=== PATIENT | male | born 1955 | race American Indian/Alaskan Native ===

== ENCOUNTER → 2018-12-25 15:19 | Outpatient (CLI) | payer MEDICARE, MEDICAID, OTHER, SELFPAY ==
--- NOTE | 2018-12-25 | DI.RAD.S_ITS ---
PROCEDURE: XR HIP W PEL IF DONE RT 2V INDICATIONS: PAIN IN RIGHT HIP TECHNIQUE: AP pelvis with lateral view(s) of the right hip(s). COMPARISON: [facility], , XR PELVIS W BILAT LAT HIPS 3VW, 02/14/2017, 14:04. FINDINGS: Bones: No fractures or dislocations. Pelvic ring appears intact. No suspicious bony lesions. There is severe right hip degenerative narrowing with areas of subchondral sclerosis as well as subchondral cyst formation. This has been prominently progressive compared to prior exam. There is mild to moderate left hip degenerative narrowing remaining stable. Soft tissues: The visualized bowel gas pattern is normal. No suspicious soft tissue calcifications. IMPRESSION: Significant interval progression of right hip degenerative change consistent with osteoarthritis. Dictated by: Valerie Lawrence M.D. on 12/25/2018 at 17:31 Approved by: Valerie Lawrence M.D. on 12/25/2018 at 17:32
--- NOTE | 2018-12-25 | DI.RAD.S_ITS ---
PROCEDURE: XR LUMBAR SPINE 2-3V INDICATIONS: PAIN IN L-SPINE TECHNIQUE: 3 views of the lumbar spine were acquired. COMPARISON: [facility], MRI lumbar spine, 04/04/2017. [facility] X-ray lumber spine, 01/08/2017. FINDINGS: Bones: 5 [id number] vertebrae are present. There is grade 1 retrolisthesis is of L5 on S1. No vertebral body compression fractures. No suspicious bony lesions. There is degenerative disc disease, moderate at L3-L4 and L5-L5, mild at L1-L2 and L2-L3. There is moderate facet arthropathy at L4-L5 and L5-S1. Soft tissues: Overlying bowel gas pattern is normal. No suspicious soft tissue calcifications. IMPRESSION: Degenerative disc and facet disease in lumbar spine as described. Dictated by: Jazzy Hammond M.D. on 12/25/2018 at 17:37 Approved by: Jazzy Hammond M.D. on 12/25/2018 at 17:39
== END ==
PROVIDERS: Visit Provider Family Medicine
DX: M54.5 Low back pain (principal); M25.551 Pain in right hip; M16.0 Bilateral primary osteoarthritis of hip; M51.36 Other intervertebral disc degeneration, lumbar region; M47.816 Spondylosis without myelopathy or radiculopathy, lumbar region; M47.817 Spondylosis without myelopathy or radiculopathy, lumbosacral region
CPT/HCPCS: 72100; 73502

== ENCOUNTER 2019-09-02 17:10 | Emergency (ER) | payer MEDICARE, MEDICAID, OTHER, SELFPAY ==
[2019-09-02 17:14] VITALS: BP 134/104; PULSE 116; RESP 20; TEMP 36.6; O2SAT 100
--- NOTE | 2019-09-02 17:33 | ED_ITS ---
HPI - Male Genitourinary General Chief complaint: Urogenital-Male Stated complaint: blood in urine Time Seen by Provider: 09/02/19 17:24 Source: patient Mode of arrival: other Limitations: no limitations History of Present Illness HPI Narrative: 63-year-old male with known prostate issues here for evaluation of hematuria. He states that he noticed it last evening and some this morning but that is improved today going on. He does state that he feels like he is having to urinate more often. He does feel like he is emptying his bladder. No fevers. Related Data Previous Rx's Medication Instructions Recorded cephalexin [Keflex] 500 mg PO BID 5 Days #10 cap 09/02/19 Allergies Allergy/AdvReac Type Severity Reaction Status Date / Time naproxen [NAPROXEN] Allergy Unknown Verified 09/02/19 17:20 Review of Systems Constitutional Constitutional: Denies fever(s) ENT Ears, Nose, Mouth, and Throat: Denies vertigo Cardiovascular Cardiovascular: Denies chest pain and Denies dyspnea Respiratory Respiratory: Denies dyspnea Gastrointestinal Gastrointestinal: Denies abdominal pain, Denies nausea and Denies vomiting Genitourinary Genitourinary: Reports hematuria and Reports dysuria Musculoskeletal Musculoskeletal: Denies myalgias and Denies arthralgias Integumentary/Breasts Skin/Breast: Denies lesions and Denies rash Neurologic Neurologic: Denies vertigo Hematologic/Lymphatic Hematologic/Lymphatic: Denies easy bleeding and Denies easy bruising Patient History Medical History Sciatica (Inactive) Varicose veins of both lower extremities (Inactive) Social History Smoking Status: Current some day smoker Substance Use Type: does not use Exam Initial Vital Signs Initial Vital Signs: Vital Signs Temperature 97.8 F 09/02/19 17:14 Pulse Rate 116 H 09/02/19 17:14 Respiratory Rate 20 09/02/19 17:14 Blood Pressure 134/104 H 09/02/19 17:14 Pulse Oximetry 100 09/02/19 17:14 Const General: cooperative and comfortable Orientation: alert, awake and oriented x3 HENMT Head: normal to inspection and normocephalic Cardio Rate: tachycardic Rhythm: regular rhythm Skin Lesions: no lesions Rashes: no rashes Neuro General: alert and awake Cognition: normal cognition Speech: speech normal Gait: normal gait Extrem General: normal to inspection and capillary refill normal Psych Appearance: grossly normal and well kempt Course Orders Ordered: ED Orders 09/02/19 17:15 Urine Culture Stat Urine Microscopic Stat Vital Signs Vital signs: Vital Signs - 8 hr 09/02/19 17:14 Temperature 97.8 F Pulse Rate 116 H Respiratory Rate 20 Blood Pressure 134/104 H Pulse Oximetry 100 MDM - Male Genitourinary Lab Data Attestation: I reviewed the patient's lab results. Labs: Lab Results 09/02/19 Range/Units 17:15 Urine RBC 5-10/hpf H (0-5/HPF) Urine WBC 10-30/hpf H (0-5/HPF) Ur Squamous Epith Cells 1-5 /hpf (0-5/HPF) Ur Transition Epith Cell 1-5/hpf (0-5/HPF) Urine Bacteria Many (>30) H (None) Urine Mucus 3+ H (Negative) Ur Culture Indicated? Specimen cultured Urine Dip Bedside Urine Glucose Negative Bedside Urine Bilirubin - Negative Bedside Urine Ketone - Negative Urine Specific [place] 1.015 Bedside Urine Occult Blood ++ Bedside Urine pH 6.0 Bedside Urine Protein +/- 15 Bedside Urine Urobilinogen - Negative Bedside Urine Nitrite - Negative Bedside Urine Leukocytes +++ 500 Esterase MDM Narrative Medical decision making narrative: Patient with hematuria. His exam is not consistent with a kidney stone. He is having dysuria and he does have white blood cells and bacteria. Will treat him for a urinary tract infection. He seems to be improving his symptoms. Informed her that she should contact his primary doctor discuss referral to see Urology. He expressed understanding and agreement plan. Discharge Plan Departure Patient Disposition: Home Clinical Impression: Urinary tract infection Qualifiers: Urinary tract infection type: site unspecified Hematuria presence: with hematuria Qualified Code(s): N39.0 - Urinary tract infection, site not specified Hematuria Qualifiers: Hematuria type: gross Qualified Code(s): R31.0 - Gross hematuria Instructions: DI for Urinary Tract Infection (UTI), DI for Hematuria Activity Restrictions/Additional Instructions: Take the antibiotics as directed. Talk with your primary provider about a referral to see Urology. Return to the emergency department for any new or worsening symptoms Prescriptions: New cephalexin [Keflex] 500 mg capsule 500 mg PO BID 5 Days Qty: 10 RF: 0
[2019-09-02 17:49] LABS: Bacteria Urine Many (>30); Culture Indicated Urine Specimen Cultured; Mucus Urine 3+ (Negative); RBC Urine 5-10/HPF (0-5/HPF); Squamous Epithelial Cell Urine 1-5 /HPF (0-5/HPF); Transitional Epi Cells Urine 1-5/HPF (0-5/HPF); WBC Urine 10-30/HPF (0-5/HPF)
[2019-09-02 18:31] VITALS: PULSE 94; RESP 22; TEMP 36.7; O2SAT 98
== END 2019-09-02 18:31 | disposition home or self-care (01) ==
PROVIDERS: Emergency Provider Emergency Medicine
DX: N39.0 Urinary tract infection, site not specified (principal); R31.0 Gross hematuria
CPT/HCPCS: 81003; 81015; 87086; 99282; 99283

== ENCOUNTER 2019-11-03 13:58 | Emergency (ER) | payer MEDICARE, MEDICAID, OTHER, SELFPAY ==
[2019-11-03 14:32] VITALS: BP 127/82; PULSE 97; RESP 16; TEMP 36.7; O2SAT 99; BMI 22.6
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
--- NOTE | 2019-11-03 14:53 | PC.NURSE ---
limited ROM of thumb pain with any movement. Cap refill <2 CMS intact. Pt report TDAP up to date
[2019-11-03] MEDS: TET,DIPH,PERTUSS(ACELL),VAC/PF 0.5 ML SYRINGE IM (17:15)
[2019-11-03] MEDS: LIDO 1%/SOD BICARB 8.4% (10ML) 10 ML SYRINGE INJ (17:16)
[2019-11-03] MEDS: BACITRACIN OINT 0.9 GM PCKT 1 APPLIC TOP (18:23)
--- NOTE | 2019-11-03 18:29 | PC.NURSE ---
4 sutures placed by Garry ANAYA.
[2019-11-03 18:30] VITALS: BP 118/72; PULSE 78; RESP 16; O2SAT 99
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
== END 2019-11-03 18:31 | disposition home or self-care (01) ==
PROVIDERS: Emergency Provider Nurse Practitioner Family
DX: S61.412A Laceration without foreign body of left hand, initial encounter (principal); W45.8XXA Other foreign body or object entering through skin, initial encounter; Z23 Encounter for immunization
CPT/HCPCS: 12001; 73130; 90471; 99283; 99284; 90715

== ENCOUNTER 2020-05-05 10:27 | Emergency (ER) | payer OTHER, MEDICAID, SELFPAY ==
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
[2020-05-05 10:39] VITALS: BP 144/81; PULSE 95; RESP 18; TEMP 36.4; O2SAT 99; BMI 19.7
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
[2020-05-05] MEDS: HYDROCODONE/ACET 5/325 TABLET 1 TAB PO (12:29)
[2020-05-05 12:30] VITALS: BP 145/89; PULSE 90; O2SAT 100
--- NOTE | 2020-05-05 13:03 | PC.NURSE ---
pt refused the sling
== END 2020-05-05 13:05 | disposition home or self-care (01) ==
PROVIDERS: Emergency Provider Nurse Practitioner Family; PCP Family Medicine
DX: M25.532 Pain in left wrist (principal); V18.2XXA Unspecified pedal cyclist injured in noncollision transport accident in nontraffic accident, initial encounter
CPT/HCPCS: 29125; 73110; 99283; 99284

== ENCOUNTER 2020-11-17 18:11 | Inpatient (IN) | payer OTHER, MEDICAID, SELFPAY ==
--- NOTE | 2020-11-17 18:14 | ED.SKABFB ---
HPI - Skin/Abscess/Foreign Bdy General Chief complaint: Wound/Laceration Stated complaint: swollen legs and feet, scabs and lessions Time Seen by Provider: 11/17/20 18:13 Source: patient Mode of arrival: Wheelchair Limitations: no limitations History of Present Illness HPI narrative: 65M smoker without chronic medical problems presents with the chief complaint of worsening pain, redness, and scabbing lesions of both lower extremities over the past 2-3 weeks. He denies history of the same. He denies fever, chills, N/V. He denies injury, breaks in the skin, or history of prior skin infection. He denies the use of IV drugs. His pain is worse with motion and walking, and improves with rest. He denies dizziness, weakness, lightheadedness, exposure to COVID. MD complaint: rash and abscess/boil Onset (ago): week(s) Location: LLE and RLE Severity: severe Quality: burning, aching and constant Pain Consistency: constant Relieving factors: rest Exacerbating factors: palpation and movement Context: none Associated symptoms: denies other symptoms Treatments prior to arrival: none Related Data Previous Rx's Medication Instructions Recorded hydrocodone-acetaminophen [[place]] 1 tab PO Q4-6H PRN #7 tab 05/05/20 Allergies Allergy/AdvReac Type Severity Reaction Status Date / Time naproxen [NAPROXEN] Allergy Unknown Verified 11/17/20 18:49 Review of Systems Constitutional Constitutional: Denies chills, Denies fatigue, Denies fever(s), Denies frequent falls, Denies lethargy and Denies weakness Eyes Eyes: Denies change in vision, Denies eye discharge, Denies irritation and Denies loss of vision ENT Ears, Nose, Mouth, and Throat: Denies change in voice, Denies dizziness, Denies neck pain, Denies sore throat and Denies throat swelling Cardiovascular Cardiovascular: Denies chest pain, Denies irregular heart rhythm, Denies lightheadedness, Denies palpitations, Denies dyspnea, Denies dyspnea on exertion and Denies orthopnea Respiratory Respiratory: Denies cough, Denies dyspnea, Denies dyspnea on exertion and Denies wheezing Gastrointestinal Gastrointestinal: Denies abdominal pain, Denies change in bowel habits, Denies diarrhea, Denies nausea and Denies vomiting Musculoskeletal Musculoskeletal: Denies neck pain and Denies numbness Integumentary/Breasts Skin/Breast: Denies pruritus, Reports erythema, Denies rash, Reports skin pain, Reports skin swelling and Reports wounds Neurologic Neurologic: Denies behavioral changes, Denies confusion, Denies dizziness, Denies frequent falls, Denies loss of vision, Denies numbness and Denies weakness Psychiatric Psychiatric: Denies anxiety, Denies behavioral changes, Denies confusion, Denies depression, Denies homicidal ideation and Denies suicidal ideation Endocrine Endocrine: Denies fatigue, Denies flushing and Denies palpitations Hematologic/Lymphatic Hematologic/Lymphatic: Denies easy bruising Allergic/Immunologic Allergic/Immunologic: Denies urticaria, Denies throat swelling and Denies wheezing Patient History Medical History Sciatica Varicose veins of both lower extremities Surgical History H/O neck surgery History of prostate surgery Social History household members: none Smoking Status: Current some day smoker alcohol intake: current Smoking Status: Current some day smoker alcohol intake frequency: 0-2 drinks per day Substance Use Type: does not use Exam Narrative Exam Narrative: GENERAL: [65] year old patient appears stated age. Well-nourished, well-developed patient, in mild distress. HEAD: Atraumatic. Normocephalic. EYES: Pupils equal round and reactive. Extraocular motions intact. No scleral icterus. No injection or drainage. ENT: Nose without bleeding, purulent drainage. Throat without erythema, tonsillar hypertrophy or exudate. Airway patent. NECK: Trachea midline. Non tender CARDIOVASCULAR: Regular rate and rhythm without murmurs, gallops, or rubs. RESPIRATORY: Clear to auscultation. Breath sounds equal bilaterally. No wheezes, rales, or rhonchi. GASTROINTESTINAL: Abdomen soft, non-tender, nondistended. EXTREMITIES: No edema or joint tenderness. BACK: Nontender without deformity or crepitance. No flank tenderness. NEURO: AOx3. SKIN: Multiple scabbing, crusting lesions with significant pain, erythema and swelling bilaterally from the knees down with some involvement proximal to the knee. There is no crepitance. Sensation is intact, cap refill less than 2 seconds. Wound culture obtained Initial Vital Signs Initial Vital Signs: Vital Signs Temperature 98.8 F 11/17/20 18:35 Pulse Rate 98 H 11/17/20 18:35 Respiratory Rate 28 H 11/17/20 18:35 Blood Pressure 137/93 H 11/17/20 18:35 Pulse Oximetry 96 11/17/20 18:35 Course Course Course Narrative: LRINEC Score for Necrotizing Soft Tissue Infection from [employer] on 11/17/2020 All calculations should be rechecked by clinician prior to use RESULT SUMMARY: 3 points If high suspicion for necrotizing fasciitis through clinical history and physical exam, do not calculate a LRINEC score and go straight to operative debridement. Consider IV antibiotics and serial labs to monitor response to treatment. Scores <6 were low risk ? but not no risk ? for necrotizing soft tissue infections. INPUTS: C-reactive protein ?> 0 = <15 mg/dL (150 mg/L) White blood cell count (x10,000/?L) ?> 0 = <15 Hemoglobin (g/dL) ?> 1 = 11-13.5 Sodium (mEq/L) ?> 2 = <135 Creatinine ?> 0 = ?1.6 mg/dL (141 ?mol/L) Glucose ?> 0 = ?180 mg/dL (10 mmol/L) Orders Ordered: ED Orders 11/17/20 18:40 COVID19 Stat Wound Culture and Gram Stain Stat 11/17/20 18:44 Complete Blood Count AUTO DIFF Stat Erythrocyte Sedimentation Rate Stat 11/17/20 18:50 C-Reactive Protein Quant Stat Lactate (Lactic Acid) Stat Procalcitonin Stat 11/17/20 19:14 Blood Culture Stat Comprehensive Metabolic Panel Stat 11/17/20 19:51 CT LE LT w con Stat Acetaminophen (Acetaminophen 325 Mg Tablet) 650 mg PO Q4HR PRN PRN Reason: Fever/Mild Pain (1-3) Al Hydrox/Mg Hydrox/Simethicone (Mag Hydrox/Alum/Simeth 30 Ml Udc) 30 ml PO Q6HR PRN PRN Reason: Dyspepsia Bisacodyl (Bisacodyl 10 Mg Supp) 10 mg AL DAILY PRN PRN Reason: Constipation Calcium Carbonate (Calcium Carbonate 500 Mg Tab) 1,000 mg PO Q4HR PRN PRN Reason: Dyspepsia Docusate Sodium (Docusate 100 Mg Capsule) 100 mg PO BID PRN PRN Reason: Constipation Enoxaparin Sodium (Enoxaparin 40 Mg/0.4 Ml Syringe) 40 mg SUBCUT DAILY KAMRYN Hydromorphone HCl (Hydromorphone 0.5 Mg Inj) 0.5 mg IV Q4H PRN PRN Reason: Pain, Moderate (4-6) Hydromorphone HCl (Hydromorphone 1 Mg Inj) 1 mg IV Q4H PRN PRN Reason: Pain, Moderate (4-6) Lactated Ringer's (Lactated Ringers) 1,000 mls @ 75 mls/hr IV CONT KAMRYN Piperacillin/Tazobactam/Dextrose (Zosyn) 3.375 gm in 50 mls @ 100 mls/hr IV Q6H KAMRYN Vancomycin HCl/Dextrose (Vancomycin) 750 mg in 150 mls @ 150 mls/hr IV Q12H KAMRYN Influenza Virus Vaccine (Influenza Hd Vaccine 0.7 Ml Syringe) 0.7 ml IM .ONCE ONE Stop: 11/18/20 09:01 Naloxone HCl (Naloxone 0.4 Mg/Ml Vial) 0.2 mg IV Q2MIN PRN PRN Reason: Opiate Reversal Ondansetron HCl (Ondansetron 4 Mg/2 Ml Inj) 4 mg IV Q8HR PRN PRN Reason: Nausea And Vomiting Vancomycin HCl (Vancomycin Per Pharmacy) 1 request MISC NOW ONE Stop: 11/17/20 22:53 Discontinued Medications Hydromorphone HCl (Hydromorphone 0.5 Mg Inj) 0.5 mg IV NOW ONE Stop: 11/17/20 19:23 Last Admin: 11/17/20 19:24 Dose: 0.5 mg Documented by: PIERRE Lactated Ringer's (Lactated Ringers) 1,000 mls @ 1,000 mls/hr IV BOLUS ONE Stop: 11/17/20 19:42 Last Infusion: 11/17/20 22:27 Dose: 0 mls/hr Documented by: Admin: 11/17/20 19:19 Dose: 1,000 mls/hr Documented by: PIERRE Vancomycin HCl/Dextrose (Vancomycin) 1,500 mg in 300 mls @ 200 mls/hr IV NOW ONE Stop: 11/17/20 20:12 Last Infusion: 11/17/20 22:27 Dose: 0 mls/hr Documented by: Admin: 11/17/20 21:18 Dose: 200 mls/hr Documented by: PIERRE Piperacillin/Tazobactam/Dextrose (Zosyn) 3.375 gm in 50 mls @ 100 mls/hr IV NOW ONE Stop: 11/17/20 19:17 Last Infusion: 11/17/20 20:18 Dose: 0 mls/hr Documented by: Admin: 11/17/20 19:19 Dose: 100 mls/hr Documented by: PIERRE Clindamycin Phosphate (Cleocin) 900 mg in 50 mls @ 50 mls/hr IV NOW ONE Stop: 11/17/20 19:47 Last Infusion: 11/17/20 21:10 Dose: 0 mls/hr Documented by: Admin: 11/17/20 19:47 Dose: 50 mls/hr Documented by: JIMMY Vancomycin HCl (Vancomycin) 1,000 mg in 200 mls @ 200 mls/hr IV Q12H [facility] Vancomycin HCl (Vancomycin) 1,000 mg in 200 mls @ 200 mls/hr IV Q12H [facility] Consultations Consultation #1: Dr. Dangelo has seen and evaluated patient at the bedside. No current surgical needs. Vital Signs Vital signs: Vital Signs - 8 hr 11/17/20 18:35 11/17/20 21:10 11/17/20 21:30 Temperature 98.8 F Pulse Rate 98 H 107 H 109 H Respiratory Rate 28 H Blood Pressure 137/93 H 113/68 114/71 Pulse Oximetry 96 100 100 11/17/20 22:00 Temperature Pulse Rate 102 H Respiratory Rate Blood Pressure 125/73 Pulse Oximetry 100 MDM - Skin/Abscess/Foreign Bdy Lab Data Result diagrams: 11/17/20 18:44 11/17/20 19:14 Labs: Lab Results 11/17/20 11/17/20 11/17/20 Range/Units 18:40 18:44 18:50 WBC 13.4 H (4.5-11.0) X10^3/uL RBC 4.39 L (4.5-5.9) X10^6/uL Hgb 12.5 L (13.5-17.5) g/dL Hct 37.6 L (41-53) % MCV 85.6 (80-100) fL MCH 28.4 (26-34) PG MCHC 33.2 (30-36) % RDW 14.2 (11.6-14.8) % Plt Count 573 H (150-400) X10^3/uL Neut % (Auto) 82.1 H (50-75) % Lymph % (Auto) 8.8 L (25-40) % [place] % (Auto) 6.7 (3-14) % Eos % (Auto) 1.8 L (2-4) % Baso % (Auto) 0.6 (0-2) % Neut # (Auto) 69185 H (4359-5259) /uL Lymph # (Auto) 1200 (2150-6704) /uL [place] # (Auto) 900 (0-900) /uL Eos # (Auto) 200 (0-450) /uL Baso # (Auto) 100 (0-100) /uL ESR 82 H (0-15) MM/HR Sodium (137-145) mmol/L Potassium (3.4-5.1) mmol/L Chloride (98-107) mmol/L Carbon Dioxide (22-32) mmol/L BUN (9-20) mg/dL Creatinine (0.66-1.25) mg/dL Estimated GFR (>60) mL/min BUN/Creatinine Ratio (6-22) Glucose (80-110) mg/dL Lactate (0.7-2.1) mmol/L Calcium (8.4-10.2) mg/dL Total Bilirubin (0.2-1.3) mg/dL AST (17-59) IU/L ALT (<50) IU/L Alkaline Phosphatase (38-126) U/L C-Reactive Protein (<1.0) mg/dL Total Protein (6.3-8.2) g/dL Albumin (3.5-5.0) g/dL Globulin (1.7-4.1) g/dL Albumin/Globulin Ratio (1.0-2.8) Procalcitonin < 0.05 (<0.5) ng/mL SARS-CoV-2 (PCR) Negative (Negative) 11/17/20 11/17/20 11/17/20 Range/Units 18:50 18:50 19:14 WBC (4.5-11.0) X10^3/uL RBC (4.5-5.9) X10^6/uL Hgb (13.5-17.5) g/dL Hct (41-53) % MCV (80-100) fL MCH (26-34) PG MCHC (30-36) % RDW (11.6-14.8) % Plt Count (150-400) X10^3/uL Neut % (Auto) (50-75) % Lymph % (Auto) (25-40) % [place] % (Auto) (3-14) % Eos % (Auto) (2-4) % Baso % (Auto) (0-2) % Neut # (Auto) (1920-6321) /uL Lymph # (Auto) (3452-2196) /uL [place] # (Auto) (0-900) /uL Eos # (Auto) (0-450) /uL Baso # (Auto) (0-100) /uL ESR (0-15) MM/HR Sodium 131 L (137-145) mmol/L Potassium 4.1 (3.4-5.1) mmol/L Chloride 99 (98-107) mmol/L Carbon Dioxide 24 (22-32) mmol/L BUN 18 (9-20) mg/dL Creatinine 0.98 (0.66-1.25) mg/dL Estimated GFR > 60.0 (>60) mL/min BUN/Creatinine Ratio 18.4 (6-22) Glucose 119 H (80-110) mg/dL Lactate 1.4 (0.7-2.1) mmol/L Calcium 8.6 (8.4-10.2) mg/dL Total Bilirubin 0.5 (0.2-1.3) mg/dL AST 69 H (17-59) IU/L ALT 34 (<50) IU/L Alkaline Phosphatase 182 H (38-126) U/L C-Reactive Protein 8.1 H (<1.0) mg/dL Total Protein 8.6 H (6.3-8.2) g/dL Albumin 3.8 (3.5-5.0) g/dL Globulin 4.8 H (1.7-4.1) g/dL Albumin/Globulin Ratio 0.8 L (1.0-2.8) Procalcitonin (<0.5) ng/mL SARS-CoV-2 (PCR) (Negative) Imaging Data CT LE w/contrast: Radiologist's Impression: [address] [id number] Scan ReportSigned Patient: Lenin BautistaMR#: [id number]: [id number]:[id number]/Sex: 65 / MDate of Service: 11/17/20Loc: EDAccession Number: [id number] Procedure: CT LE LT w con Ordering Provider: Igor Flores D.O. PROCEDURE: CT LE RT AND LT W CON INDICATIONS: severe infection, question abscess or fascial involvement TECHNIQUE: After the administration of intravenous contrast, 3 mm axial sections acquired of the right and left lower extremities , with coronal and sagittal reformats. COMPARISON: None. FINDINGS: Image quality: Excellent. Bones: No fracture or dislocation. No osseous erosive changes. No periosteal reaction. Soft tissues: Extensive, confluent edema noted in the subcutaneous fat of the calves, ankles and feet compatible with nonspecific cellulitis. Edema noted in the deep fascial planes of the calves bilaterally compatible with nonspecific fasciitis. No soft tissue gas identified to suggest CT evidence of necrotizing fasciitis. No abscess. There is normal contrast opacification of the major arteries and veins of the lower legs. Venous varices noted in the medial aspect of the left calf. IMPRESSION: 1. Extensive nonspecific cellulitis involving the right and left lower extremities. 2. Extensive nonspecific fasciitis involving the right and left lower extremities. No CT evidence of necrotizing fasciitis. 3. No abscess. 4. No CT evidence of osteomyelitis. Please note CT imaging can be incentive to osteomyelitis initial 15 days is disease. If there is clinical concern for osteomyelitis, three-phase nuclear medicine scan should be considered for further evaluation. 5. Arterial and venous structures patent. Dictated by: Clarita Bright MD, PhD on 11/17/2020 at 21:14 Approved by: Clarita Bright MD, PhD on 11/17/2020 at 21:21 Discharge Plan Departure Admit Date/Time: 11/17/20 22:33 Admit Provider: Singh Frias
[2020-11-17 18:35] VITALS: BP 137/93; PULSE 98; RESP 28; TEMP 37.1; O2SAT 96; BMI 22.2
--- NOTE | 2020-11-17 18:58 | PC.NURSE ---
Pt has multiple wound on lower legs in different stages of healing. Pt has some draining and some scabs with redness. Pts feet swollen and shiny,painful with ambulation. Pt denies SOB
[2020-11-17 19:14] LABS: Add Manual Diff / Slide Review NO; Basophils Absolute Auto 100 /uL (0-100); Basophils Percent Auto 0.6 % (0-2); Eosinophils Absolute Auto 200 /uL (0-450); Eosinophils Percent Auto 1.8 % (2-4); Hematocrit 37.6 % (41-53); Hemoglobin 12.5 g/dL (13.5-17.5); Lymphocytes Absolute Auto 1200 /uL (1100-4500); Lymphocytes Percent Auto 8.8 % (25-40); Mean Corpuscular HGB Conc 33.2 % (30-36); Mean Corpuscular Hemoglobin 28.4 PG (26-34); Mean Corpuscular Volume 85.6 fL (80-100); Monocytes Absolute Auto 900 /uL (0-900); Monocytes Percent Auto 6.7 % (3-14); Neutrophils Absolute Auto 11000 /uL (1500-7000); Neutrophils Percent Auto 82.1 % (50-75); Platelet Count 573 X10^3/uL (150-400); Red Blood Cell Count 4.39 X10^6/uL (4.5-5.9); Red Cell Distribution Width 14.2 % (11.6-14.8); White Blood Cell Count 13.4 X10^3/uL (4.5-11.0)
[2020-11-17] MEDS: PIPERACILLIN-TAZO 3.375 GM/50 ML FROZ.PIGGY IV (19:19)
[2020-11-17] MEDS: LACTATED RINGERS 1,000 ML 1000 ML IV (19:19)
[2020-11-17] MEDS: HYDROMORPHONE 0.5 MG INJ IV (19:24)
[2020-11-17 19:28] LABS: COVID19 -Nasal RAPID Negative (Negative)
[2020-11-17 19:29] LABS: C-Reactive Protein Quant 8.1 mg/dL (<1.0)
[2020-11-17 19:37] LABS: Erythrocyte Sedimentation Rate 82 MM/HR (0-15)
[2020-11-17 19:37] LABS: Lactate (Lactic Acid) 1.4 mmol/L (0.7-2.1)
[2020-11-17] MEDS: CLINDAMYCIN 900 MG/50 ML PIGGYBACK 50 MG IV (19:47)
[2020-11-17 19:51] LABS: Procalcitonin < 0.05 ng/mL (<0.5)
--- NOTE | 2020-11-17 19:51 | DI.CT.S_ITS ---
PROCEDURE: CT LE RT AND LT W CON INDICATIONS: severe infection, question abscess or fascial involvement TECHNIQUE: After the administration of intravenous contrast, 3 mm axial sections acquired of the right and left lower extremities , with coronal and sagittal reformats. COMPARISON: None. FINDINGS: Image quality: Excellent. Bones: No fracture or dislocation. No osseous erosive changes. No periosteal reaction. Soft tissues: Extensive, confluent edema noted in the subcutaneous fat of the calves, ankles and feet compatible with nonspecific cellulitis. Edema noted in the deep fascial planes of the calves bilaterally compatible with nonspecific fasciitis. No soft tissue gas identified to suggest CT evidence of necrotizing fasciitis. No abscess. There is normal contrast opacification of the major arteries and veins of the lower legs. Venous varices noted in the medial aspect of the left calf. IMPRESSION: 1. Extensive nonspecific cellulitis involving the right and left lower extremities. 2. Extensive nonspecific fasciitis involving the right and left lower extremities. No CT evidence of necrotizing fasciitis. 3. No abscess. 4. No CT evidence of osteomyelitis. Please note CT imaging can be incentive to osteomyelitis initial 15 days is disease. If there is clinical concern for osteomyelitis, three-phase nuclear medicine scan should be considered for further evaluation. 5. Arterial and venous structures patent. Dictated by: Clarita Bright MD, PhD on 11/17/2020 at 21:14 Approved by: Clarita Bright MD, PhD on 11/17/2020 at 21:21
[2020-11-17 19:59] LABS: Alanine Aminotransferase 34 IU/L (<50); Albumin 3.8 g/dL (3.5-5.0); Albumin Globulin Ratio 0.8 (1.0-2.8); Alkaline Phosphatase 182 U/L (38-126); Aspartate Aminotransferase 69 IU/L (17-59); BUN Creatinine Ratio 18.4 (6-22); Bilirubin Total 0.5 mg/dL (0.2-1.3); Blood Urea Nitrogen 18 mg/dL (9-20); Calcium 8.6 mg/dL (8.4-10.2); Carbon Dioxide 24 mmol/L (22-32); Chloride 99 mmol/L (98-107); Estimated Glomerular Filt Rate > 60.0 mL/min (>60); Globulin 4.8 g/dL (1.7-4.1); Glucose 119 mg/dL (80-110); HEMOLYSIS 33 (0-50); Potassium 4.1 mmol/L (3.4-5.1); Sodium 131 mmol/L (137-145); Total Protein 8.6 g/dL (6.3-8.2)
[2020-11-17 21:10] VITALS: BP 113/68; PULSE 107; O2SAT 100
[2020-11-17] MEDS: VANCOMYCIN 1,500 MG/300 ML PIGGYBACK 200 MG IV (21:18)
[2020-11-17 21:30] VITALS: BP 114/71; PULSE 109; O2SAT 100
[2020-11-17 22:00] VITALS: BP 125/73; PULSE 102; O2SAT 100
--- NOTE | 2020-11-17 22:25 | PM.CN ---
History of Present Illness Consult details Date Patient Seen: 11/17/20 Time Patient Seen: 22:25 Chief complaint: swollen legs and feet, scabs and lessions Narrative: 65-year-old man seen in the emergency room and evaluation for bilateral lower extremity cellulitis. He is a difficult historian. He developed nonspecific skin lesions on his lower extremity approximately 3 weeks ago. His condition worsened as he developed increased bilateral lower extremity pain and swelling from feet to the knees bilaterally. No previous similar episodes, denies trauma. History of venous stasis disease, no known diabetes, mycoardial infarcation, lower extremity ischemia, he is ambulatory. He is a tobacco user. At arrival afebrile, hemodynamically normal, WBC 13, neutrophils 82%, sodium 131, lactate 1.4, procalcitonin l< 0.05. CT LE demonstrates cellulitis and non specific fascitis no subcutaneous air is present. Started on Clindamycin, Zosyn and Vancomycin on arrival for coverage of possible necrotizing fascitis. Meds Home Medications and Allergies Home Medications Medication Instructions Recorded Confirmed Type hydrocodone-acetaminophen [[place]] 1 tab PO Q4-6H PRN #7 tab 05/05/20 11/17/20 Rx Allergies Allergy/AdvReac Type Severity Reaction Status Date / Time naproxen [NAPROXEN] Allergy Unknown Verified 11/17/20 18:49 Review of Systems Review of Systems ROS: Yes All systems reviewed with the patient and are negative except as otherwise documented Exam Vital Signs (past 8 hours): - 11/17/20 18:35 11/17/20 21:10 11/17/20 21:30 Temperature 98.8 F Pulse Rate 98 H 107 H 109 H Respiratory Rate 28 H Blood Pressure 137/93 H 113/68 114/71 Pulse Oximetry 96 100 100 11/17/20 22:00 Temperature Pulse Rate 102 H Respiratory Rate Blood Pressure 125/73 Pulse Oximetry 100 Oxygen Delivery Method Room Air Narrative Exam Narrative: General-no acute distress, thin adult male HEENT-moist mucous membranes, no scleral icterus Neck-supple, no lymphadenopathy Chest- non labored respirations, no audible wheezes Cardiac-regular rate, pitting edema Abdomen-soft, nontender, non distended Extremities-bilateral lower extremities with erythema and warmth, pitting edema from the knees to feet, normal capillary refill but unable to palpate distal pulses secondary to edema. Multiple open skin lesions in various stages. No crepitus. Appropriately tender to palpation. Neurological-alert and oriented, no focal deficits Objective Labs Result Diagrams: 11/17/20 18:44 11/17/20 19:14 Labs: Laboratory Results - last 24 hr 11/17/20 11/17/20 11/17/20 18:40 18:44 18:50 WBC 13.4 H RBC 4.39 L Hgb 12.5 L Hct 37.6 L MCV 85.6 MCH 28.4 MCHC 33.2 RDW 14.2 Plt Count 573 H Neut % (Auto) 82.1 H Lymph % (Auto) 8.8 L [place] % (Auto) 6.7 Eos % (Auto) 1.8 L Baso % (Auto) 0.6 Neut # (Auto) 93239 H Lymph # (Auto) 1200 [place] # (Auto) 900 Eos # (Auto) 200 Baso # (Auto) 100 ESR 82 H Sodium Potassium Chloride Carbon Dioxide BUN Creatinine Estimated GFR BUN/Creatinine Ratio Glucose Lactate Calcium Total Bilirubin AST ALT Alkaline Phosphatase C-Reactive Protein Total Protein Albumin Globulin Albumin/Globulin Ratio Procalcitonin < 0.05 SARS-CoV-2 (PCR) Negative 11/17/20 11/17/20 11/17/20 18:50 18:50 19:14 WBC RBC Hgb Hct MCV MCH MCHC RDW Plt Count Neut % (Auto) Lymph % (Auto) [place] % (Auto) Eos % (Auto) Baso % (Auto) Neut # (Auto) Lymph # (Auto) [place] # (Auto) Eos # (Auto) Baso # (Auto) ESR Sodium 131 L Potassium 4.1 Chloride 99 Carbon Dioxide 24 BUN 18 Creatinine 0.98 Estimated GFR > 60.0 BUN/Creatinine Ratio 18.4 Glucose 119 H Lactate 1.4 Calcium 8.6 Total Bilirubin 0.5 AST 69 H ALT 34 Alkaline Phosphatase 182 H C-Reactive Protein 8.1 H Total Protein 8.6 H Albumin 3.8 Globulin 4.8 H Albumin/Globulin Ratio 0.8 L Procalcitonin SARS-CoV-2 (PCR) Assessment & Plan Assessment & Plan narrative: 65-year-old man with the venous stasis disease admitted for bilateral lower extremity cellulitis for 3 weeks duration. I reviewed his laboratory and imaging results. His mild leukocytosis of 13 normal lactate mild hyponatremia of 131 CT demonstrates cellulitis and nonspecific fasciitis however there is no evidence of subcutaneous emphysema. I think he has cellulitis and the likelihood of necrotizing fasciitis is extremely low given the several week duration of symptoms and his nontoxic hemodynamically stable presentation. No surgical intervention unless his clinical condition deteriorates. Recommendations -medical admission -IV antibiotic therapy for cellulitis -Elevation and compression of lower extremities for venous stasis -Local wound care measures
[2020-11-17 22:40] VITALS: BP 127/84; PULSE 104; RESP 20; TEMP 37.4; O2SAT 100
[2020-11-17 22:46] VITALS: O2SAT 100
--- NOTE | 2020-11-17 22:58 | P.HP_ITS ---
History of Present Illness History of Present Illness Date Patient Seen: 11/17/20 Time Patient Seen: 23:00 Chief complaint: swollen legs and feet, scabs and lessions Narrative: Mr. Lenin Bautista is a 65-year-old and male who is a current smoker and has a past medical history significant for sciatica, varicose veins and BPH who presents to the ER for bilateral lower extremity swelling and draining wounds for over 2 weeks. The patient is a poor historian and provides conflicting information to providers. The patient reports leg swelling and woun ds for 3 weeks that have been draining pus and are in various stages of healing. He describes developing redness and pain over the last 2 days prompting him to present to the ER. The patient states he has no previous history of leg swelling or skin issues. He has wounds on bilateral lower extremities as well as upper extremities. The patient denies drug use to this provider however he tells the admitting nurse that he uses methamphetamine regularly with last use today prior to arrival. The patient denies complaints of fevers or chills has had no rigors. He denies headaches or dizziness, nasal congestion or sore throat. He denies complaints of chest pain or palpitations. He denies julisa rtness of breath cough or wheezing. He has had no epigastric or abdominal pain no nausea vomiting and denies diarrhea constipation. He does not recall his last bowel movement. He denies urinary frequency urgency or burning. Upon arrival to the ER the patient has a temperature 98.8?, heart rate 98, blood pressure 137/93, respiratory rate of 28, saturation 96% with a pain level of 8/[address] in his legs[address] A CT of bilateral lower extremities obtained finding extensive cellulitis bilateral lower extremities, extensive fasciitis without evidence of necrotizing fasciitis bilateral lower extremities, no abscess, no evidence of osteomyelitis, arterial and venous structures are patent. On laboratory analysis he has an elevated white count at 13.4, hemoglobin of 12.5, hematocrit of 37.6 and platelets of 373. He has a low sodium at 131 a BUN of 18 and creatinine 0.98. His nonfasting glucose is 119. On liver functions has a total bilirubin of 0.5, AST of 69, ALT of 34 and alkaline phosphatase 182. His sed rate is 82 with a CRP of 8.1. Procalcitonin is less than 0.05. COVID screening is negative. Gram stain from the wound finds Gram-positive cocci and Gram-negative rods. General surgery is asked to consult and Dr. Dangelo has evaluated the patient finding no need for surgical intervention. In the ER the patient received lactated Ringer's, Dilaudid 0.5 mg, Zosyn, vancomycin, clindamycin after obtaining wound cultures and blood cultures. The patient is admitted to the medicine service for bilateral lower extremity cellulitis and wound infection. Patient History Medical History (Updated 11/18/20 @ 00:52 by HÉTCOR Cooper) BPH (benign prostatic hyperplasia) Sciatica Varicose veins of both lower extremities Surgical History H/O neck surgery History of prostate surgery Family & Social History Family history unavailable: No (The patient is a poor historian and reports no family medical history.) Safety & Behavioral: Feels Safe in Current Yes Environment Been Physically Hurt or No Threatened By a Person Tobacco & Substance use: Smoking Status Current some day smoker alcohol intake frequency 0-2 drinks per day Substance Use Type does not use Meds Home Medications and Allergies Home Medications Medication Instructions Recorded Confirmed Type hydrocodone-acetaminophen [[place]] 1 tab PO Q4-6H PRN #7 tab 05/05/20 11/17/20 Rx Allergies Allergy/AdvReac Type Severity Reaction Status Date / Time naproxen [NAPROXEN] Allergy Unknown Verified 11/17/20 18:49 Review of Systems Review of Systems ROS: Yes All systems reviewed with the patient and are negative except as otherwise documented Exam Vital Signs (past 8 hours): - 11/17/20 18:35 11/17/20 21:10 11/17/20 21:30 Temperature 98.8 F Pulse Rate 98 H 107 H 109 H Respiratory Rate 28 H Blood Pressure 137/93 H 113/68 114/71 Pulse Oximetry 96 100 100 11/17/20 22:00 11/17/20 22:40 Temperature 99.3 F Pulse Rate 102 H 104 H Respiratory Rate 20 Blood Pressure 125/73 127/84 Pulse Oximetry 100 100 Oxygen Delivery Method Room Air Oxygen Flow Rate 0 Narrative Exam Narrative: GENERAL APPEARANCE: well developed, poorly nourished male who is ill-appearing. HEENT: Normocephalic, PERRLA, conjunctiva clear, EOMs intact without nystagmus, no sinus tenderness to percussion, no rhinorrhea, mucous membranes are pink and dry. NECK/THYROID: neck supple, no JVD,no thyromegaly, trachea midline. LYMPH NODES: no cervical or supraclavicular lymphadenopathy. SKIN: Skin is dry, with poor skin turgor and vanc, skin wounds of multiple sizes ranging from 2 mm to 2 cm in various stages of healing probably bilateral lower extremities but also bilateral upper extremities, cellulitic changes bilateral lower legs HEART: regular rate and rhythm, S1-S2, 1/6 murmur, no rubs or gallops, brisk capillary refill, 3+ edema bilateral feet LUNGS: clear to auscultation bilaterally, no coarseness crackles or wheezing, no cough present CHEST: Symmetrical movement, no accessory muscle use, good tidal volume, no pain on AP or lateral compression. ABDOMEN: Soft, no epigastric or abdominal tenderness, no organomegaly, no flank or suprapubic tenderness, active bowel tones. BACK: Normal curvature, nontender to palpation, no CVA tenderness on percussion EXTREMITIES: moves all extremities, strength is 4/5 and symmetrical, with marked swelling and edema, pain on touch with multiple skin wounds in various stages of healing NEUROLOGIC: AAO x person and place, GCS 14, no lateralized neurologic deficits, cranial nerves II-XII grossly intact, numb fingertips of the right hand. PSYCH: Patient keeps eyes closed, no agitation one-word response to questions, follows directions . Objective Labs Result Diagrams: 11/17/20 18:44 11/17/20 19:14 Labs: Laboratory Results - last 24 hr 11/17/20 11/17/20 11/17/20 18:40 18:44 18:50 WBC 13.4 H RBC 4.39 L Hgb 12.5 L Hct 37.6 L MCV 85.6 MCH 28.4 MCHC 33.2 RDW 14.2 Plt Count 573 H Neut % (Auto) 82.1 H Lymph % (Auto) 8.8 L [place] % (Auto) 6.7 Eos % (Auto) 1.8 L Baso % (Auto) 0.6 Neut # (Auto) 81769 H Lymph # (Auto) 1200 [place] # (Auto) 900 Eos # (Auto) 200 Baso # (Auto) 100 ESR 82 H Sodium Potassium Chloride Carbon Dioxide BUN Creatinine Estimated GFR BUN/Creatinine Ratio Glucose Lactate Calcium Total Bilirubin AST ALT Alkaline Phosphatase C-Reactive Protein Total Protein Albumin Globulin Albumin/Globulin Ratio Procalcitonin < 0.05 SARS-CoV-2 (PCR) Negative 11/17/20 11/17/20 11/17/20 18:50 18:50 19:14 WBC RBC Hgb Hct MCV MCH MCHC RDW Plt Count Neut % (Auto) Lymph % (Auto) [place] % (Auto) Eos % (Auto) Baso % (Auto) Neut # (Auto) Lymph # (Auto) [place] # (Auto) Eos # (Auto) Baso # (Auto) ESR Sodium 131 L Potassium 4.1 Chloride 99 Carbon Dioxide 24 BUN 18 Creatinine 0.98 Estimated GFR > 60.0 BUN/Creatinine Ratio 18.4 Glucose 119 H Lactate 1.4 Calcium 8.6 Total Bilirubin 0.5 AST 69 H ALT 34 Alkaline Phosphatase 182 H C-Reactive Protein 8.1 H Total Protein 8.6 H Albumin 3.8 Globulin 4.8 H Albumin/Globulin Ratio 0.8 L Procalcitonin SARS-CoV-2 (PCR) Assessment & Plan Assessment & Plan narrative: This is a 65-year-old male patient with past medical history of sciatica, varicose veins and BPH who presents to the ER with 3 weeks of lower extremity swelling with extensive draining wounds in various st ages of healing. The patient is not forthcoming in providing history. 1. Bilateral lower extremity cellulitis, acute, present on admission, active -the patient has marked swelling pain and redness bilateral lower legs with multiple wounds in various stages of healing. The patient reports no prior history of venous stasis or venous stasis ulcers and reports that the wounds developed over 3 weeks worsening in the last 2 days. -patient has elevated white count at 13.4 with elevated neutrophils at 11,000. Sed rate is 82, CRP is 8.1, procalcitonin is less than 0.05. Initial Gram stain from wound culture finds Gram-positive cocci and Gram-negative rods. -CT scan finds extensive cellulitis bilateral lower extremities, extensive fasciitis without evidence of necrotizing fasciitis bilateral lower extremities, no abscess no evidence of osteomyelitis. -Dr. Dangelo was consulted and evaluated the patient and found no surgical intervention was indicated and felt infection was not necrotizing fasciitis considering CT and lab results and clinical assessment. -in the ER the patient received clindamycin, Zosyn and vancomycin. Continue Zosyn 3.375 g IV every 6 hours and vancomycin pharmacy to dose. -Gram-positive cocci with presence of murmur concerning for vegetation along with bilateral lower extremity edema prior to development of cellulitis, ordered echocardiogram. -wound care orders include cleaning with normal saline, applying Silvadene covered with Telfa, apply bilateral Yehuda wraps. -will recheck blood count and CRP in the morning. 2. Lower urinary tract infection, acute, present on admission, active -patient has prior history of BPH and has undergone prostate surgery. Patient reports no symptoms. -patient with elevated white count at 13.4 with 11,000 neutrophils. Urinalysis is positive for protein, 1+ blood, 3+ leukocyte esterase, 30-100 wbc's and many bacteria. Urine is sent for culture. -the patient has received multiple antibiotics prior to obtaining the urinalysis. He will be receiving Zosyn 3.375 g every 6 hours and covers most urinary pathogens. 3. Hyponatremia, mild, present on admission, active -sodium on initial labs is 131. His potassium is 4.1. -received a bolus of lactated Ringer's in the emergency department was on lactated Ringer's infusion. Ordered normal saline 100 cc/hour. -will recheck electrolytes in the morning 4. Substance abuse, methamphetamine, active. -patient initially denies drug use however wounds on his arm are suspicious for injection. Patient later endorsed methamphetamine use to admitting RN with last use prior to presentation to the ER. -urinary drug screen is obtained which is positive for amphetamine, methamphetamine. VTE prophylaxis: Enoxaparin IV fluid: Normal saline 100 cc/hour. Diet: Heart healthy Code status: Patient will be made full code and does not designate a surrogate decision maker. The patient is admitted to the hospital due to the extent and severity of his cellulitis and wound infections requiring a complex treatment plan to prevent complications or adverse events. The patient is admitted as an inpatient with expected length of stay to be greater than 2 midnights. COVID-19 COVID-19 status: Negative Result date/Date tested (Pos, Neg/Pending): 11/17/20 Scores GCS [place] coma scale eye opening: Spontaneous Zaida coma scale verbal response: Confused [place] coma scale motor response: Obey commands Zaida coma scale total score: 14
[2020-11-17 23:35] VITALS: BMI 22.2
[2020-11-17 23:59] LABS: Bilirubin Urine UA NEGATIVE (NEGATIVE); Color Urine UA YELLOW; Glucose Urine UA NEGATIVE (Negative); Ketones Urine UA NEGATIVE (NEGATIVE); Leukocyte Esterase Urine UA 3+ (NEGATIVE); Nitrite Urine UA NEGATIVE (Negative); Occult Blood Urine UA 1+ (Negative); Protein Urine UA TRACE (Negative); Urobilinogen Urine UA 0.2 E.U./dL (0.2)
[2020-11-18] VITALS (16 sets, daily range): BP systolic 92–112; BP diastolic 55–71; PULSE 90–107; RESP 16–20; TEMP 36.8–37.8; O2SAT 96–100
[2020-11-18] LABS: Appearance Urine UA Slightly Cloudy
[2020-11-18] MEDS: HYDROMORPHONE 0.5 MG INJ IV (00:08)
[2020-11-18] MEDS: LACTATED RINGERS 1,000 ML 75 ML IV (00:09)
[2020-11-18 00:13] LABS: Bacteria Urine Many (>30); Culture Indicated Urine Specimen Cultured; RBC Urine 0-1/HPF (0-5/HPF); Squamous Epithelial Cell Urine 0-1 /HPF (0-5/HPF); WBC Urine 30-100/HPF (0-5/HPF)
[2020-11-18 00:24] LABS: UR Morphine/Opiate cutoff 300 Negative (Negative); Ur Creatinine Normal (Normal); Ur Specific Gravity Normal (Normal); Urine Amphetamines Positive (Negative); Urine Barbiturates Negative (Negative); Urine Benzodiazepines Negative (Negative); Urine Cocaine Negative (Negative); Urine MDMA Negative (Negative); Urine Methadone Negative (Negative); Urine Methamphetamines Positive (Negative); Urine Oxycodone Negative (Negative); Urine Phencyclidine Negative (Negative); Urine Tetrahydrocannabinol Negative (Negative); Urine Tricyclic Antidepressant Negative (Negative); Urine pH Normal (Normal)
[2020-11-18] MEDS: SODIUM CHLORIDE 0.9% 1,000 ML 100 ML IV ×2 (01:40→14:55)
[2020-11-18] MEDS: PIPERACILLIN-TAZO 3.375 GM/50 ML FROZ.PIGGY IV ×4 (02:00→19:25)
[2020-11-18] MEDS: ACETAMINOPHEN 325 MG TABLET 650 MG PO (02:01)
[2020-11-18] MEDS: SILVER SULFADIAZINE 1% CREAM 50 GM 1 APPLIC TOP (02:02)
[2020-11-18] MEDS: HYDROMORPHONE 1 MG INJ IV ×2 (02:03→12:45)
--- NOTE | 2020-11-18 03:12 | PC.NURSE ---
0200- Patient premedicated for dressing application to lower extremities. Both legs gently washed with warm water. Much of the serous build up on the wounds was debrided and the tissue underneath is pink and appears healthy. There are scattered areas of wounds in various stages of healing some with scabs and others appear infected with yellow exudate noted in and around the wound. Patient has 3+ edema bilaterally to the legs with some blistering noted around the great toes. The blisters are intact. Patient has 10/10 pain with movement but after the dressings were applied he stated it feels so much better thank you. Bed cradle placed on the bed to keep the covers off of the lower extremities. Silvadine cream applied generously to both lower extremities and telfa over the areas of greatest wound openings mostly to lower legs. Other scattered wounds silvadine applied and left open. Left forearm wounds silvadine applied and telfa placed over open areas and loosely wrapped with kirlex. Right forearm there is an obvious infected area that is covered by the opsite that is anchoring the IV site. Will try to get a order for a midline and remove the IV once another line is obtained and give wound care. TMax 100.1 and heart rate noted to be mid 110-120. Patient medicated with tylenol po per order. Will monitor closely.
[2020-11-18 05:23] LABS: BUN Creatinine Ratio 16.5 (6-22); Blood Urea Nitrogen 15 mg/dL (9-20); Calcium 7.7 mg/dL (8.4-10.2); Carbon Dioxide 27 mmol/L (22-32); Chloride 102 mmol/L (98-107); Estimated Glomerular Filt Rate > 60.0 mL/min (>60); Glucose 119 mg/dL (80-110); HEMOLYSIS < 15 (0-50); Magnesium 2.2 mg/dL (1.6-2.3); Potassium 3.8 mmol/L (3.4-5.1); Sodium 132 mmol/L (137-145)
[2020-11-18 05:25] LABS: C-Reactive Protein Quant 8.3 mg/dL (<1.0)
[2020-11-18 05:42] LABS: Add Manual Diff / Slide Review NO; Basophils Absolute Auto 100 /uL (0-100); Basophils Percent Auto 1.1 % (0-2); Eosinophils Absolute Auto 400 /uL (0-450); Eosinophils Percent Auto 3.5 % (2-4); Hematocrit 32.2 % (41-53); Hemoglobin 10.5 g/dL (13.5-17.5); Lymphocytes Absolute Auto 1700 /uL (1100-4500); Lymphocytes Percent Auto 13.4 % (25-40); Mean Corpuscular HGB Conc 32.6 % (30-36); Mean Corpuscular Hemoglobin 27.8 PG (26-34); Mean Corpuscular Volume 85.5 fL (80-100); Monocytes Absolute Auto 1100 /uL (0-900); Monocytes Percent Auto 8.5 % (3-14); Neutrophils Absolute Auto 9300 /uL (1500-7000); Neutrophils Percent Auto 73.5 % (50-75); Platelet Count 492 X10^3/uL (150-400); Red Blood Cell Count 3.77 X10^6/uL (4.5-5.9); Red Cell Distribution Width 14.6 % (11.6-14.8); White Blood Cell Count 12.7 X10^3/uL (4.5-11.0)
[2020-11-18] MEDS: VANCOMYCIN 750 MG/150 ML FROZ.PIGGY 150 MG IV (08:48)
--- NOTE | 2020-11-18 10:03 | CM.DANOTE ---
Addendum entered by Liliane Huerta LPN 11/18/20 10:14: Spoke now with [employer] Amber. She readily agrees to take over this case. official consult order is obtained. Original Note: Discharge Planning/Care Management DCP: assessment: Case received, EMR reviewed. machine worker consult need noted in grade checker assessment but does not come through as an order. Discussed in Team Rounds. Pt is a 65 year old male who admitted last night to care of hospitalist team. Natural Fabricator: Dr. Dangelo/[facility] PCP: unknown at this time. Payer: [employer] Full dx and POC are in process with inital consideration of possible necrotizing fasciitis and Dr. Dangelo noting more likely cellulitis. Tox screen: positive methamphetamine and amphetamine. Will check in with pt and see about a referral to the CM [facility] team. CM Discharge Assessment Start: 11/18/20 10:02 Freq: Status: Active Protocol: Document 11/18/20 10:02 ITV (Rec: 11/18/20 10:03 ITV [id number]) Discharge Planning Assessment Advance Directives? No History Provided By Patient,Medical Record Has Patient been admitted in last 30 Yes days? Prior Living Arrangements House Household Members none
--- NOTE | 2020-11-18 11:01 | PM.PN.1 ---
Subjective Subjective Date Patient Seen: 11/18/20 Time Patient Seen: 11:04 Interval history: This is a 65-year-old male with a past medical history of polysubstance use including methamphetamine who was admitted with bilateral lower extremity cellulitis and a presumed urinary tract infection. Patient has continued pain in his lower extremities today but denies any fevers, chills, shortness of breath. He has had no nausea, vomiting today. Wound cultures are growing a group a strep and Proteus species. Will discontinue vancomycin today. Exam Vital Signs (past 8 hours): - 11/18/20 03:04 11/18/20 06:00 11/18/20 08:00 Temperature 99.4 F 98.3 F Pulse Rate 106 H 91 H Respiratory Rate 16 19 Blood Pressure 112/65 100/71 Pulse Oximetry 99 96 100 Oxygen Delivery Method Room Air Oxygen Flow Rate 0 Narrative Exam Narrative: GENERAL APPEARANCE: well developed, poorly nourished male who is chronically ill-appearing. HEENT: Normocephalic, PERRLA, conjunctiva clear, EOMs intact without nystagmus, no sinus tenderness to percussion, no rhinorrhea, mucous membranes are pink and dry. LYMPH NODES: no cervical or supraclavicular lymphadenopathy. SKIN: cellulitic changes bilateral lower legs with mild warmth and tenderness beneath bandages, chronic wounds now bandaged with sloughing of skin onto dressings. HEART: regular rate and rhythm, S1-S2, no murmur, no rubs or gallops, brisk capillary refill, 3+ edema bilateral feet LUNGS: clear to auscultation bilaterally, no coarseness crackles or wheezing, no cough present CHEST: Symmetrical movement, no accessory muscle use, good tidal volume, no pain on AP or lateral compression. ABDOMEN: Soft, no epigastric or abdominal tenderness, no organomegaly, no flank or suprapubic tenderness, active bowel tones. BACK: Normal curvature, nontender to palpation, no CVA tenderness on percussion EXTREMITIES: moves all extremities, strength is 4/5 and symmetrical, with marked swelling and edema, pain on touch with multiple skin wounds in various stages of healing NEUROLOGIC: AAO x person and place, no lateralized neurologic deficits, cranial nerves II-XII grossly intact, numb fingertips of the right hand. PSYCH: cooperative and pleasant, normal affect. Objective Labs Result Diagrams: 11/18/20 04:45 11/18/20 04:45 Labs: Laboratory Results - last 24 hr 11/17/20 11/17/20 11/17/20 18:40 18:44 18:50 WBC 13.4 H RBC 4.39 L Hgb 12.5 L Hct 37.6 L MCV 85.6 MCH 28.4 MCHC 33.2 RDW 14.2 Plt Count 573 H Neut % (Auto) 82.1 H Lymph % (Auto) 8.8 L Hawkins % (Auto) 6.7 Eos % (Auto) 1.8 L Baso % (Auto) 0.6 Neut # (Auto) 50319 H Lymph # (Auto) 1200 Hawkins # (Auto) 900 Eos # (Auto) 200 Baso # (Auto) 100 ESR 82 H Sodium Potassium Chloride Carbon Dioxide BUN Creatinine Estimated GFR BUN/Creatinine Ratio Glucose Lactate Calcium Magnesium Total Bilirubin AST ALT Alkaline Phosphatase C-Reactive Protein Total Protein Albumin Globulin Albumin/Globulin Ratio Procalcitonin < 0.05 Urine Color Urine Appearance Urine pH Ur Specific [place] Urine Protein Urine Glucose (UA) Urine Ketones Urine Occult Blood Urine Nitrate Urine Bilirubin Urine Urobilinogen Ur Leukocyte Esterase Urine RBC Urine WBC Ur Squamous Epith Cells Urine Bacteria Ur Culture Indicated? U Opiates 300ng/mL cut Ur Oxycodone Screen Urine Methadone Screen Ur Barbiturates Screen U Tricyclic Antidepress Ur Phencyclidine Scrn Ur Amphetamines Screen U Methamphetamines Scrn Ur MDMA Scrn (Ecstasy) U Benzodiazepines Scrn Urine Cocaine Screen U Marijuana (THC) Screen SARS-CoV-2 (PCR) Negative 11/17/20 11/17/20 11/17/20 18:50 18:50 19:14 WBC RBC Hgb Hct MCV MCH MCHC RDW Plt Count Neut % (Auto) Lymph % (Auto) Hawkins % (Auto) Eos % (Auto) Baso % (Auto) Neut # (Auto) Lymph # (Auto) Hawkins # (Auto) Eos # (Auto) Baso # (Auto) ESR Sodium 131 L Potassium 4.1 Chloride 99 Carbon Dioxide 24 BUN 18 Creatinine 0.98 Estimated GFR > 60.0 BUN/Creatinine Ratio 18.4 Glucose 119 H Lactate 1.4 Calcium 8.6 Magnesium Total Bilirubin 0.5 AST 69 H ALT 34 Alkaline Phosphatase 182 H C-Reactive Protein 8.1 H Total Protein 8.6 H Albumin 3.8 Globulin 4.8 H Albumin/Globulin Ratio 0.8 L Procalcitonin Urine Color Urine Appearance Urine pH Ur Specific [place] Urine Protein Urine Glucose (UA) Urine Ketones Urine Occult Blood Urine Nitrate Urine Bilirubin Urine Urobilinogen Ur Leukocyte Esterase Urine RBC Urine WBC Ur Squamous Epith Cells Urine Bacteria Ur Culture Indicated? U Opiates 300ng/mL cut Ur Oxycodone Screen Urine Methadone Screen Ur Barbiturates Screen U Tricyclic Antidepress Ur Phencyclidine Scrn Ur Amphetamines Screen U Methamphetamines Scrn Ur MDMA Scrn (Ecstasy) U Benzodiazepines Scrn Urine Cocaine Screen U Marijuana (THC) Screen SARS-CoV-2 (PCR) 11/17/20 11/17/20 11/18/20 23:30 23:30 04:45 WBC RBC Hgb Hct MCV MCH MCHC RDW Plt Count Neut % (Auto) Lymph % (Auto) Hawkins % (Auto) Eos % (Auto) Baso % (Auto) Neut # (Auto) Lymph # (Auto) Hawkins # (Auto) Eos # (Auto) Baso # (Auto) ESR Sodium 132 L Potassium 3.8 Chloride 102 Carbon Dioxide 27 BUN 15 Creatinine 0.91 Estimated GFR > 60.0 BUN/Creatinine Ratio 16.5 Glucose 119 H Lactate Calcium 7.7 L Magnesium 2.2 Total Bilirubin AST ALT Alkaline Phosphatase C-Reactive Protein Total Protein Albumin Globulin Albumin/Globulin Ratio Procalcitonin Urine Color Yellow Urine Appearance Slightly cloudy Urine pH 7.0 Ur Specific [place] 1.010 Urine Protein Trace H Urine Glucose (UA) Negative Urine Ketones Negative Urine Occult Blood 1+ H Urine Nitrate Negative Urine Bilirubin Negative Urine Urobilinogen 0.2 Ur Leukocyte Esterase 3+ H Urine RBC 0-1/hpf Urine WBC 30-100/hpf H Ur Squamous Epith Cells 0-1 /hpf Urine Bacteria Many (>30) H Ur Culture Indicated? Specimen cultured U Opiates 300ng/mL cut Negative Ur Oxycodone Screen Negative Urine Methadone Screen Negative Ur Barbiturates Screen Negative U Tricyclic Antidepress Negative Ur Phencyclidine Scrn Negative Ur Amphetamines Screen Positive H U Methamphetamines Scrn Positive H Ur MDMA Scrn (Ecstasy) Negative U Benzodiazepines Scrn Negative Urine Cocaine Screen Negative U Marijuana (THC) Screen Negative SARS-CoV-2 (PCR) 11/18/20 11/18/20 04:45 04:45 WBC 12.7 H RBC 3.77 L Hgb 10.5 L Hct 32.2 L MCV 85.5 MCH 27.8 MCHC 32.6 RDW 14.6 Plt Count 492 H Neut % (Auto) 73.5 Lymph % (Auto) 13.4 L Hawkins % (Auto) 8.5 Eos % (Auto) 3.5 Baso % (Auto) 1.1 Neut # (Auto) 9300 H Lymph # (Auto) 1700 Hawkins # (Auto) 1100 H Eos # (Auto) 400 Baso # (Auto) 100 ESR Sodium Potassium Chloride Carbon Dioxide BUN Creatinine Estimated GFR BUN/Creatinine Ratio Glucose Lactate Calcium Magnesium Total Bilirubin AST ALT Alkaline Phosphatase C-Reactive Protein 8.3 H Total Protein Albumin Globulin Albumin/Globulin Ratio Procalcitonin Urine Color Urine Appearance Urine pH Ur Specific [place] Urine Protein Urine Glucose (UA) Urine Ketones Urine Occult Blood Urine Nitrate Urine Bilirubin Urine Urobilinogen Ur Leukocyte Esterase Urine RBC Urine WBC Ur Squamous Epith Cells Urine Bacteria Ur Culture Indicated? U Opiates 300ng/mL cut Ur Oxycodone Screen Urine Methadone Screen Ur Barbiturates Screen U Tricyclic Antidepress Ur Phencyclidine Scrn Ur Amphetamines Screen U Methamphetamines Scrn Ur MDMA Scrn (Ecstasy) U Benzodiazepines Scrn Urine Cocaine Screen U Marijuana (THC) Screen SARS-CoV-2 (PCR) [facility] Medical History (Updated 11/18/20 @ 03:18 by Igor Flores DO) BPH (benign prostatic hyperplasia) Sciatica Varicose veins of both lower extremities Surgical History H/O neck surgery History of prostate surgery Social History household members: none Smoking Status: Current some day smoker alcohol intake: current Assessment & Plan Assessment & Plan narrative: This is a 65-year-old male patient with past medical history of sciatica, varicose veins and BPH who presented to the ER with 3 weeks of lower extremity swelling with extensive draining wounds in various stages of healing admitted for bilateral lower extremity cellulitis. 1. Bilateral lower extremity cellulitis, acute, present on admission, active -the patient has marked swelling pain and redness bilateral lower legs with multiple wounds in various stages of healing. The patient reports no prior history of venous stasis or venous stasis ulcers and reports that the wounds developed over 3 weeks worsening in the last 2 days. -patient had elevated white count at 13.4 with elevated neutrophils at 11,000. Sed rate is 82, CRP is 8.1, procalcitonin is less than 0.05. Now improved after initial antibiotic therapy. -CT scan finds extensive cellulitis bilateral lower extremities, extensive fasciitis without evidence of necrotizing fasciitis bilateral lower extremities, no abscess no evidence of osteomyelitis. -Dr. Dangelo was consulted and evaluated the patient and found no surgical intervention was indicated and felt infection was not necrotizing fasciitis considering CT and lab results and clinical assessment. -in the ER the patient received clindamycin, Zosyn and vancomycin. Continued Zosyn 3.375 g IV every 6 hours and vancomycin initially. Cultures now growing Group A strep and Proteus, will continue on zosyn and discontinue vancomycin pending final proteus sensitivities. -TTE without evidence of vegetation, blood cultures negative thus far. -wound care orders include cleaning with normal saline, applying Silvadene covered with Telfa, apply bilateral Yehuda wraps. -check A1c 2. Lower urinary tract infection, acute, present on admission, active -patient has prior history of BPH and has undergone prostate surgery. Patient reports no symptoms. -patient with elevated white count at 13.4 with 11,000 neutrophils. Urinalysis is positive for protein, 1+ blood, 3+ leukocyte esterase, 30-100 wbc's and many bacteria. Urine is sent for culture. -the patient has received multiple antibiotics prior to obtaining the urinalysis. He will be receiving Zosyn 3.375 g every 6 hours and covers most urinary pathogens. 3. Hyponatremia, mild, present on admission, active -sodium on initial labs is 131. His potassium is 4.1. -received a bolus of lactated Ringer's in the emergency department was on lactated Ringer's infusion. Ordered normal saline 100 cc/hour on admission which will now be discontinued. 4. Substance abuse, methamphetamine, active. -Patient endorsed methamphetamine use to admitting RN with last use prior to presentation to the ER. -urinary drug screen is obtained which is positive for amphetamine, methamphetamine. Dispo: Inpatient, anticipate discharge home in the next 2-3 days once cellulitis improves. Will see how he ambulates with PT/OT. COVID-19: negative DVT: Lovenox daily
[2020-11-18] MEDS: ENOXAPARIN 40 MG/0.4 ML SYRINGE SUBCUT (11:31)
--- NOTE | 2020-11-18 11:37 | PT.IIE ---
Current Diagnoses Cellulitis of left lower limb (11/17/20) Surgical History (Last Reviewed 11/17/20 @ 22:32 by Jose Dangelo MD) H/O neck surgery History of prostate surgery Medical History (Last Updated 11/18/20 @ 00:52 by HÉCTOR Cooper) BPH (benign prostatic hyperplasia) Sciatica Varicose veins of both lower extremities Physical Therapy Inpatient Evaluation/Re-Eval M1 PT/OT-IP Prior Functional Status Start: 11/18/20 13:15 Freq: NEEDED Status: Active Protocol: Document 11/18/20 11:37 AB (Rec: 11/18/20 13:58 AB [id number]) Medical Review Prior Functional Status Medical History Reviewed Yes Communication able to make needs known Mobility and Gait pt stated that he is modified independent with all mobilities and ambulates using his walking stick Social History Household Members none Living Arrangements House Number of Floors (Floors) One Floor Number of Stairs To Enter/Railing? 3 steps without rails to enter Home Environment Ramp Additional Social History Comment has a walking stick M2 PT-IP Current Condition Start: 11/18/20 13:15 Freq: NEEDED Status: Active Protocol: Document 11/18/20 11:37 AB (Rec: 11/18/20 13:58 AB [id number]) Physical Therapy Current Condition Current Condition Evaluation Date 11/18/20 Treatment Diagnosis BLE cellulitis; difficulty in walking Onset Date 11/17/20 M3 PT-IP Subjective Start: 11/18/20 13:15 Freq: NEEDED Status: Active Protocol: Document 11/18/20 11:37 AB (Rec: 11/18/20 13:58 AB [id number]) Subjective Physical Therapy Visit Type Type Initial Evaluation Visit Start Time 11:37 Visit Stop Time 12:04 Total Visit Minutes 27 Number of TRAINING PROGRAM DEVELOPER Visits 0 Physical Therapy Visit Comments Patient Comments pt is agreeable to do PT but can get easily agitated Therapy Pain Assessment Pain When Pain Assessed At Rest Pain Present Pain Present Pain Reported Location Bilateral Lower Leg Intensity 10 Scale Used Numeric (0 - 10) Pain Behaviors Facial Grimacing,Guarding Pain Management Techniques Distraction,Elevation, Modification of Treatment,Re- positioning,Timing of Activity with Medications M4 PT-IP Mobility and Gait Start: 11/18/20 13:15 Freq: NEEDED Status: Active Protocol: Document 11/18/20 11:37 AB (Rec: 11/18/20 13:58 AB [id number]) PT-Bed Mobility Assessment Supine to Sit Supine to Sit Standby Assistance Sit to Supine Sit to Supine Standby Assistance PT-Transfer Assessment Sit to and From Stand Sit to and from Stand Moderate Assistance,1 Person Assistance,Use of Upper Extremities Equipment Transfer Assistive Device Gait Belt,Front Wheeled Walker Orthotic/Prosthetic Devices or Brace: No Transfers Transfer Destination Toilet Transfer Technique ambulated using FWW Transfer Ability Level of Assist Moderate Assistance,1 Person Assistance,Use of Upper Extremities Comments Mobility Comments completed supine to sit using bed rail SBA. completed sit to stand mod A and cues. pt with increase UE support and does not put weight much on BLE and tends to hop. ambulated to the toilet using FWW mod A and cues. completed toileting and completed sit to stand using FWW mod A and requested to go back to bed and ambulated using FWW to bed mod A. completed sit to supine SBA. positioned in bed . call light and table placed within reach. Gait Assessment Gait Gait Assistance Required: Moderate Assistance,1 Person Assist Distance (Feet) 10 Able to Maintain Weight Bearing Status Yes During Gait Assistive Devices Assistive Device Gait Belt,Front Wheeled Walker Orthotic/Prosthetic Devices or Brace: No Gait Deviations General Gait Pattern Antalgic,Decreased Stride Length,Decreased Feet Clearance,Flexed Trunk,Step-to Gait Factors Limiting Gait Function Factors Limiting Gait Function Decreased Activity Tolerance, Decreased Strength,Difficulty Following Directions,Limited Range of Motion,Pain,Poor Balance,Poor Safety Awareness PT-Balance Assessment Sitting Balance and Reactions Static Sitting Balance Ability Good Dynamic Sitting Balance Ability Good Standing Balance and Reactions Static Standing Balance Ability Fair Dynamic Standing Balance Ability Poor Device Used FWW M5 PT-IP Objective Assessments Start: 11/18/20 13:15 Freq: NEEDED Status: Active Protocol: Document 11/18/20 11:37 AB (Rec: 11/18/20 13:58 AB [id number]) Orientation Orientation/Cognition Level of Alertness Alert Orientation Name,Place,Situation Safety Awareness Decreased Safety Awareness Memory Description Short Term Impaired Strength Lower Extremity Strength Assessment Bilaterally Impaired Hip 3-/5 Knee 3+/5 Comments Strength Comments pain limiting movement Coordination Assessment Gross Coordination Gross Coordination WNL Muscle Tone Muscle Tone WNL Yes M6 PT-IP Treatment Start: 11/18/20 13:15 Freq: NEEDED Status: Active Protocol: Document 11/18/20 11:37 AB (Rec: 11/18/20 13:58 AB [id number]) Physical Therapy Treatment Education Education Provided Safety M7 PT-IP Assessment and Plan Start: 11/18/20 13:15 Freq: NEEDED Status: Active Protocol: Document 11/18/20 11:37 AB (Rec: 11/18/20 13:58 AB [id number]) PT Summary Assessment and Plan Potential Rehabilitation Potential Fair Status of Condition at Evaluation Evolving Summary Impairments Pain,ROM,Strength,Balance, Coordination,Sensation,Tone, Cognition,Bed Mobility, Transfers,Gait,Activity Tolerance Assessment Summary pt requiring mod A with mobility and lives alone. pt will require SNF rehab at this time to improve strength and mobility independence. Goals Bed Mobility Goal Independent Transfer Goal Independent,Front Wheeled Walker Gait Goal Independent,Front Wheel Walker Gait Distance 150 Other Goals improve ambulation using walking stick SBA 150 ft Days to Meet Goals 10 Frequency of Treatment Frequency Of Treatment Once a Day Treatment Plan Physical Therapy Treatment Plan Bed Mobility Training,Transfer Training,Gait Training, Therapeutic Exercise,Balance Retraining,Discharge Planning, Hot or Cold Pack,Neuromuscular Re-ed,Coordination Retraining Recommendations To Nursing Amount of Assist Needed 1 Person Assist Discharge Recommendations PT Discharge Recommendations SNF Rehab Equipment Needed for Home Before FWW if going home and not safe Discharge with his walking stick Transportation Needs at Discharge Wheelchair/Cabulance
[2020-11-18] MEDS: DOCUSATE 100 MG CAPSULE PO (12:46)
[2020-11-18] MEDS: SILVER SULFADIAZINE 1% CREAM 25 GM 1 APPLIC TOP (14:56)
[2020-11-18] MEDS: HYDROMORPHONE 2 MG TABLET 4 MG PO ×2 (14:56→20:22)
--- NOTE | 2020-11-18 15:12 | CM.DANOTE ---
Addendum entered by Amber Abrams 11/18/20 15:23: Patient currently I in ADL's. Patient ambulating in hallway. KJS Original Note: DCP/Assessment: Reviewed chart. Patient is a 65yr old male admitted to [facility] with bilateral lower extremity cellulitis. No PCP listed. Primary payor is 1) [employer] Medicare Advantage 2)Medicaid. Met with patient explained CM/SW role. Patient alert but sleepy at time of visit. Patient reports that he resides in house in [place]. Patient currently does not have vehicle to drive. Patient reports current conflict with family members but does not go into detail. Patient agitated with TRADING ANALYST when asked about substance use. Patient reports that he does not use illegal substances. Patient's tox screen positive for methamphetamines. Patient with wounds on his arms most likely associated with IVDU. TRADING ANALYST will reattempt visit with patient tomorrow 11-19-2020. P: Anticipate home when stable. TAHIRA Jordan Discharge Planning/Care Management CM Discharge Assessment Start: 11/18/20 10:02 Freq: Status: Active Protocol: Document 11/18/20 10:02 ITV (Rec: 11/18/20 10:03 ITV [id number]) Discharge Planning Assessment Advance Directives? No History Provided By Patient,Medical Record Has Patient been admitted in last 30 Yes days? Prior Living Arrangements House Household Members none Document 11/18/20 15:06 KJS (Rec: 11/18/20 15:12 KJS [id number]) Discharge Planning Assessment Assigned Head Paper Tester TAHIRA Jordan DPOA/Assigned Designee Name N/A Advance Directives? No History Provided By Patient,Medical Record Has Patient been admitted in last 30 Yes days? Prior Living Arrangements House Household Members none Type of transporation used prior to Relies on Others admit Independent with ADL's Yes Is patient alert and oriented? Yes Caregiver for Another No Comment Substance abuse. Discharge Plan Home Transportation Arrangement TBD Additional Comment Patient refusing resources at time of initial assessment. Whiteboard Updated in Patient Room with Yes name and ext. # of Head Paper Tester Review Status In Process Next Review Type Continued Stay Review
--- NOTE | 2020-11-18 15:15 | PC.NURSE ---
AM shift Pt has been in bed, c/o pain 05/23. IV dilaudid given x2, added PO Dilaudid at end of shift. Dressing to BLE intact, some areas of dried blood from patients own picking. Dried blood noted to fingernails. Discussed self care, Pt is agreeable to following hospitalist recomendation and wound care. Applying SSD cream essentially all overBUE and BLE. Open, oozing areas in various stages of healing. Echo done this AM. NS @ 100 Midline placed LUE. Pt became upset with care management when discussion of past drug history.
--- NOTE | 2020-11-18 22:29 | PC.NURSE ---
Shift note: Pt is alert and oriented x3, VSS, tele dc'd per order. Midline IV to Left upper arm with NS @ 100ml/hr, wrapped for protection. All wounds dressed as ordered and remain intact. Pt complains of occasional 9/10 pain especially when he moves or lifts his legs, then pain subsides. Medicated x 1 with PO Dilaudid with good relief. Taking PO diet well with intermittent snacks given.
--- NOTE | 2020-11-18 23:15 | DI.ECHO.S_ITS ---
[facility] +---------+ [facility] +---------+ : : [address] : : : : [id number] : : : : Phone: [phone]+ Echocardiogram Report + + :Name: NEDA TURNER Study Date: 11/18/2020 Height: 66 in : :[facility] ReadingLocation: Weight: 138 lb : : Gender: Male BSA: 1.7 m2 : :: 1955 Age: 65 yrs BP: 112/65 mmHg: :Reason For Study: BILATERAL LOWER EXTREMITY EDEMA, MURMUR : :Ordering Physician: Jon : :Hospitalist Performed By: Rosangela Renteria : :Referring: ZULY EMERY : + + Interpretation Summary The ejection fraction is estimated to be 55-60%. The aortic valve is not well visualized. The aortic valve is mildly calcified. There is mild aortic stenosis. The right ventricular systolic pressure is estimated to be at least 33 mmHg based on an estimated right atrial pressure of 8 mm Hg. Procedure: A two-dimensional transthoracic echocardiogram with color flow and Doppler was performed. The study quality was technically adequate. Comparison is made with the echocardiogram of 10/25/2011. The patient was in normal sinus rhythm during the exam. Left Ventricle: The left ventricle is normal in size and wall thickness. There is no ventricular septal defect visualized. The ejection fraction is estimated to be 55-60%. There are no focal wall motion abnormalities. Diastolic parameters suggest probable normal left ventricular diastolic function and normal filling pressures. Right Ventricle: The right ventricle is normal in size and function. Atria: The left atrium is mildly dilated. Right atrial size is normal. There is no Doppler evidence for an interatrial shunt. Mitral Valve: There is mild mitral annular calcification. There is no obvious vegetation seen on the mitral valve. There is trace mitral regurgitation. Aortic Valve: The aortic valve is not well visualized. The aortic valve is mildly calcified. There is no obvious aortic valvular vegetation. The peak aortic velocity is 2.6 m/sec. The aortic valve mean gradient is 14.7 mmHg. There is mild aortic stenosis. There is trace aortic regurgitation. Tricuspid Valve: The tricuspid valve is normal in structure and function. There is no obvious tricuspid valve vegetation. There is a trace or physiologic amount of tricuspid regurgitation. The right ventricular systolic pressure is estimated to be at least 33 mmHg based on an estimated right atrial pressure of 8 mm Hg. Pulmonic Valve: The pulmonic valve is not well visualized. A pulmonic valvular vegetation cannot be excluded due to limited visualization of the valve. Great Vessels: The aortic root is mildly dilated. The ascending aorta is mildly enlarged. The IVC is of normal diameter and collapses less than 50% with a sniff. This suggests a right atrial pressure of 8 mm Hg. Pericardium/ Pleura There is no pericardial effusion. MMode/2D Measurements & Calculations LVIDd: 4.6 cm LVOT diam: 2.3 cm LVIDs: 2.9 cm Ao root diam: 4.1 cm FS: 36.5 % Aortic Jxn: 2.9 cm IVSd: 0.96 cm asc Aorta Diam: 3.6 cm LVPWd: 0.64 cm LV soler. diameter/BSA (cm/m^2): 2.7 LV sys. diameter/BSA (cm/m^2): 1.7 LA A2 area: 22.8 cm2 RA long axis: 5.2 cm LA A4 area: 16.6 cm2 RA area: 10.6 cm2 LA length (vol): 4.9 cm RA vol: 18.5 ml LA vol: 65.1 ml RA : 10.8 ml/m2 LA vol index: 38.1 ml/m2 IVC diam: 1.8 cm RVD1 (basal): 2.4 cm RVD2 (mid): 2.4 cm TAPSE: 2.3 cm Doppler Measurements & Calculations Ao V2 max: 263.1 cm/sec LVOT Max Osmany: 94.7 cm/sec Ao V2 mean: 182.1 cm/sec LV V1 max P.6 mmHg Ao max P.7 mmHg LV V1 VTI: 21.0 cm Ao mean P.7 mmHg OSCAR(I,D): 1.8 cm2 Ao V2 VTI: 49.6 cm OSCAR(V,D): 1.5 cm2 sev ratio: 0.42 OSCAR indexed to BSA (cm^2/m^2): 1.0 MV E max osmany: 76.0 cm/sec TR max osmany: 250.2 cm/sec MV A max osmany: 84.8 cm/sec TR max P.0 mmHg MV E/A: 0.90 Med Peak E' Osmany: 8.2 cm/sec E/E' med: 9.2 Lat Peak E' Osmany: 10.0 cm/sec E/E' lat: 7.6 E/e' average: 8.4 MV dec time: 0.16 sec SV(LVOT): 87.3 ml Reading Physician:10:12 AM
[2020-11-19] VITALS (9 sets, daily range): BP systolic 93–114; BP diastolic 53–67; PULSE 83–89; RESP 17–20; TEMP 36.8–37.1; O2SAT 97–99
[2020-11-19] MEDS: HYDROMORPHONE 2 MG TABLET 4 MG PO ×3 (00:24→10:18)
[2020-11-19] MEDS: ACETAMINOPHEN 325 MG TABLET 650 MG PO ×4 (00:25→18:17)
[2020-11-19] MEDS: SODIUM CHLORIDE 0.9% 1,000 ML 100 ML IV ×2 (01:21→13:30)
[2020-11-19] MEDS: PIPERACILLIN-TAZO 3.375 GM/50 ML FROZ.PIGGY IV ×4 (01:39→20:34)
[2020-11-19 05:31] LABS: Add Manual Diff / Slide Review NO; Basophils Absolute Auto 100 /uL (0-100); Basophils Percent Auto 1.1 % (0-2); Eosinophils Absolute Auto 500 /uL (0-450); Eosinophils Percent Auto 6.4 % (2-4); Hematocrit 32.6 % (41-53); Hemoglobin 10.9 g/dL (13.5-17.5); Lymphocytes Absolute Auto 2300 /uL (1100-4500); Mean Corpuscular HGB Conc 33.6 % (30-36); Mean Corpuscular Hemoglobin 28.5 PG (26-34); Mean Corpuscular Volume 84.9 fL (80-100); Monocytes Absolute Auto 700 /uL (0-900); Monocytes Percent Auto 9.4 % (3-14); Neutrophils Absolute Auto 4300 /uL (1500-7000); Neutrophils Percent Auto 54.1 % (50-75); Platelet Count 514 X10^3/uL (150-400); Red Blood Cell Count 3.84 X10^6/uL (4.5-5.9); Red Cell Distribution Width 14.5 % (11.6-14.8); White Blood Cell Count 7.9 X10^3/uL (4.5-11.0)
[2020-11-19 05:39] LABS: Alanine Aminotransferase 23 IU/L (<50); Albumin 2.9 g/dL (3.5-5.0); Albumin Globulin Ratio 0.8 (1.0-2.8); Alkaline Phosphatase 144 U/L (38-126); Aspartate Aminotransferase 26 IU/L (17-59); Bilirubin Total 0.2 mg/dL (0.2-1.3); Bilirubin Unconjugated 0.3 mg/dL (0.0-1.1); Blood Urea Nitrogen 16 mg/dL (9-20); Calcium 7.9 mg/dL (8.4-10.2); Carbon Dioxide 29 mmol/L (22-32); Chloride 103 mmol/L (98-107); Estimated Glomerular Filt Rate > 60.0 mL/min (>60); Globulin 3.8 g/dL (1.7-4.1); Glucose 87 mg/dL (80-110); HEMOLYSIS < 15 (0-50); Magnesium 2.2 mg/dL (1.6-2.3); Potassium 4.2 mmol/L (3.4-5.1); Sodium 133 mmol/L (137-145); Total Protein 6.7 g/dL (6.3-8.2)
[2020-11-19 05:49] LABS: Hemoglobin A1C% w Est Avg Glu 5.9 % (4.0-6.0)
--- NOTE | 2020-11-19 07:52 | P.PN_ITS ---
Subjective Subjective Date Patient Seen: 11/19/20 Time Patient Seen: 09:09 Interval history: Consistent with prior observations the patient is quite reticent, wrapped tightly in blankets, minimally communicative. He has no new complaints. His legs and arms are covered with clean dressings which are not removed during my exam today. His white blood count has dropped from 12.7 down to 7.9. The hemoglobin is 10.9. His blood pressure is 93/62. Exam Vital Signs (past 8 hours): - 11/19/20 02:00 11/19/20 03:00 11/19/20 06:00 Temperature 98.2 F Pulse Rate 89 Respiratory Rate 18 Blood Pressure 93/62 Pulse Oximetry 99 98 98 Oxygen Delivery Method Room Air Oxygen Flow Rate 0 Narrative Exam Narrative: He is alert and oriented. No apparent distress. Heart is regular rate and rhythm with a 1/6 systolic ejection murmur Lungs are clear to auscultation bilaterally with diminished breath sounds on the right Extremities have no ankle edema. There are clean dressings covering both lower legs and both forearms. Objective Labs Result Diagrams: 11/19/20 04:51 11/19/20 04:51 Labs: Laboratory Results - last 24 hr 11/19/20 11/19/20 11/19/20 04:51 04:51 04:51 WBC 7.9 RBC 3.84 L Hgb 10.9 L Hct 32.6 L MCV 84.9 MCH 28.5 MCHC 33.6 RDW 14.5 Plt Count 514 H Neut % (Auto) 54.1 Lymph % (Auto) 29.0 [place] % (Auto) 9.4 Eos % (Auto) 6.4 H Baso % (Auto) 1.1 Neut # (Auto) 4300 Lymph # (Auto) 2300 [place] # (Auto) 700 Eos # (Auto) 500 H Baso # (Auto) 100 Sodium 133 L Potassium 4.2 Chloride 103 Carbon Dioxide 29 BUN 16 Creatinine 0.94 Estimated GFR > 60.0 BUN/Creatinine Ratio 17.0 Glucose 87 Hemoglobin A1c 5.9 Calcium 7.9 L Magnesium 2.2 Total Bilirubin 0.2 Conjugated Bilirubin 0.0 Unconjugated Bilirubin 0.3 AST 26 ALT 23 Alkaline Phosphatase 144 H Total Protein 6.7 Albumin 2.9 L Globulin 3.8 Albumin/Globulin Ratio 0.8 L [facility] Medical History (Updated 11/18/20 @ 03:18 by Igor Flores DO) BPH (benign prostatic hyperplasia) Sciatica Varicose veins of both lower extremities Surgical History H/O neck surgery History of prostate surgery Social History household members: none Smoking Status: Current some day smoker alcohol intake: current Assessment & Plan Assessment & Plan narrative: This is a 65-year-old male patient with past medical history of sciatica, varicose veins and BPH who presented to the ER with 3 weeks of lower extremity swelling with extensive draining wounds in various stages of healing admitted for bilateral lower extremity cellulitis. 1. Bilateral lower extremity cellulitis, acute, present on admission, active -the patient initially had marked swelling pain and redness bilateral lower legs with multiple wounds in various stages of healing. The patient reports no prior history of venous stasis or venous stasis ulcers and reports that the wounds developed over 3 weeks worsening in the previous 2 days. -patient had elevated white count at 13.4 with elevated neutrophils at 11,000. Sed rate was 82 with a CRP of 8.1 but a procalcitonin that is less than 0.05. Now improved after initial antibiotic therapy. -CT scan finds extensive cellulitis bilateral lower extremities, extensive fasciitis without evidence of necrotizing fasciitis bilateral lower extremities, no abscess no evidence of osteomyelitis. -Dr. Dangelo was consulted and evaluated the patient and found no surgical intervention was indicated and felt infection was not necrotizing fasciitis considering CT and lab results and clinical assessment. -in the ER the patient received clindamycin, Zosyn and vancomycin. Continued Zosyn 3.375 g IV every 6 hours and vancomycin initially. Cultures now growing Group A strep and Proteus, will continue on zosyn and discontinue vancomycin pending final proteus sensitivities. He will be transitioned to oral Cipro in t he next few days based on expected improvements. -TTE without evidence of vegetation, blood cultures negative thus far. Consider MONICO due to 1/6 systolic heart murmur. -wound care orders include cleaning with normal saline, applying Silvadene covered with Telfa, apply bilateral Yehuda wraps. -pending A1c 2. Lower urinary tract infection, acute, present on admission, active -patient has prior history of BPH and has undergone prostate surgery. Patient reports no symptoms. -patient with elevated white count at 13.4 with 11,000 neutrophils. Urinalysis was positive for protein, 1+ blood, 3+ leukocyte esterase, 30-100 wbc's and many bacteria. Urine was sent for culture. -the patient has received multiple antibiotics prior to obtaining the urinalysis. He will be receiving Zosyn 3.375 g every 6 hours which covers most urinary pathogens. 3. Hyponatremia, mild, present on admission, active -sodium on initial labs is 131. His potassium is 4.1. -received a bolus of lactated Ringer's in the emergency department was on lactated Ringer's infusion. Ordered normal saline 100 cc/hour on admission which was stopped yesterday. 4. Substance abuse, methamphetamine, active. -Patient endorsed methamphetamine use to admitting RN with last use prior to presentation to the ER. -urinary drug screen is obtained which is positive for amphetamine, methamphetamine. -he has declined a chemical dependency evaluation with social media editor. Dispo: Inpatient, anticipate discharge home in the next 1-2 days once cellulitis improves. Will see how he ambulates with PT/OT. COVID-19: negative DVT: Lovenox daily
--- NOTE | 2020-11-19 08:02 | PC.NURSE ---
Assess- Patient is A&Ox3, he denies pain at this time and was medicated with 4mg of po dilaudid. Patients skin with multiple open soars on his arms and legs. Bilateral lower extremities with dressings in place. Hx of drug abuse. Patient is drinking coffee and will have breakfast soon.
[2020-11-19] MEDS: ENOXAPARIN 40 MG/0.4 ML SYRINGE SUBCUT (08:58)
--- NOTE | 2020-11-19 12:23 | OT.IP.EVAL ---
Current Diagnoses Cellulitis of left lower limb (11/17/20) Past Medical History (Last Updated 11/18/20 @ 00:52 by HÉCTOR Cooper) BPH (benign prostatic hyperplasia) Sciatica Varicose veins of both lower extremities Surgical History (Last Reviewed 11/17/20 @ 22:32 by Jose Dangelo MD) H/O neck surgery History of prostate surgery Occupational Therapy Inpatient Evaluation/Re-Eval M1 PT/OT-IP Prior Functional Status Start: 11/18/20 13:15 Freq: NEEDED Status: Active Protocol: Document 11/19/20 15:01 CGR (Rec: 11/19/20 15:11 CGR [id number]) Medical Review Prior Functional Status Medical History Reviewed Yes Communication able to make needs known Mobility and Gait pt stated that he is modified independent with all mobilities and ambulates using his walking stick Activities of Daily Living and IADL's Pt states that he was IND in all ADLs but does not drive. Social History Household Members none Living Arrangements House Number of Floors (Floors) One Floor Number of Stairs To Enter/Railing? 3 steps without rails to enter or ramp Home Environment Ramp Employment Status Retired Additional Social History Comment Pt has a walking stick that he uses for mobiltiy. M2 OT-IP Current Condition Start: 11/19/20 15:01 Freq: Status: Active Protocol: Document 11/19/20 15:01 CGR (Rec: 11/19/20 15:11 CGR [id number]) Occupational Therapy Current Condition Current Condition Evaluation Date 11/19/20 Treatment Diagnosis BLE cellulitis, UTI, Polysubstance abuse Diagnosis Onset Date 11/17/20 M3 OT- IP Subjective and Pain Start: 11/19/20 15:01 Freq: Status: Active Protocol: Document 11/19/20 15:01 CGR (Rec: 11/19/20 15:11 CGR [id number]) OT- Subjective Occupational Therapy Visit Type Type Initial Evaluation Visit Start Time 12:09 Visit Stop Time 12:23 Total Visit Minutes 14 Notes Pt is agreeable to limited activity. OT Pain Assessment Pain When Pain Assessed During Mobility Pain Present Pain Present Pain Reported Location Bilateral Lower Leg Intensity 9 Scale Used Numeric (0 - 10) Management Techniques Distraction,Elevation, Modification of Treatment,Re- positioning M4 OT- IP ADL's Start: 11/19/20 15:01 Freq: Status: Active Protocol: Document 11/19/20 15:01 CGR (Rec: 11/19/20 15:11 CGR [id number]) OT [id number] Comments OT Self-Feeding Comments Not meal time OT ADL-Grooming Comments OT Grooming Comments Pt declined stating that he had just performed. OT ADL-Oral Care Comments Oral Care Comments Pt declined stating that he had just performed. OT ADL-Dressing General Eval Lower Body Dressing Ability Minimal Assistance Areas Needing Assistance Socks Comments OT Dressing Comments Pt needed assist to get sock started on foot then was able to pull sock into place. OT ADL-Toileting General Evaluation Toileting Ability Standby Assistance Comments OT Toileting Comments Pt sat on toielt for urination . OT ADL-Bathing Comments OT Bathing Comments Not performed M5 OT- IP IADL's Start: 11/19/20 15:01 Freq: Status: Active Protocol: Document 11/19/20 15:01 CGR (Rec: 11/19/20 15:11 CGR [id number]) OT-Instrumental Activities of Daily Living Deficits IADL Deficits Identified Deficits Home Safety Awareness Awareness of Need for Assistance at Home Decreased Awareness Ability to Problem Solve Emergency Unable to Problem Solve Situations M6 OT- IP Functional Cognition Start: 11/19/20 15:01 Freq: Status: Active Protocol: Document 11/19/20 15:01 CGR (Rec: 11/19/20 15:11 CGR [id number]) Cognitive Factors Limiting Selfcare Function Cognitive Ability Level of Alertness Alert,Confusional State Patient Orientation Name,Place,Situation Attention Span Ability Capable of Focused Attention, Unable to Sustain Attention Ability to Follow Commands Able to Follow One Step Commands with Increased Time, Able to Follow One Step Commands with Repetition OT- Vision and Hearing OT- Hearing Assessment OT- Hearing Assessment WFL OT- Vision Assessment Visual Acuity Glasses All The Time Visual Attentiveness WFL Occular Pursuits WFL Visual Convergence WFL Vision Assessment Comments Pt without smooth pursuits. Pt states he is nearsighted. M7 OT- IP Mobility and Balance Start: 11/19/20 15:01 Freq: Status: Active Protocol: Document 11/19/20 15:01 CGR (Rec: 11/19/20 15:11 CGR [id number]) OT- Bed Mobility Assessment Rolling Level of Assistance Standby Assistance Supine to Sit Supine to Sit Assist Standby Assistance Sit to Supine Sit to Supine Assist Standby Assistance Scooting Scooting to Edge of Bed Standby Assistance OT-Transfer Assessment Sit to and From Stand Sit to and from Stand Contact Guard Assistance Transfers Transfer Ability Contact Guard Assistance Technique Transfer Destination Bed,Toilet Transfer Technique Stand Step Pivot Devices Transfer Assistive Devices Gait Belt Comments Mobility Comments Pt declined to use walker dispite it placed infront of him. Pt used furniture to ambulate to bathroom and used the IV pole to return to bed. OT- Balance Assessment Sitting Balance and Reactions Static Sitting Balance Ability Good Dynamic Sitting Balance Ability Fair M8 OT- IP Objective Assessments Start: 11/19/20 15:01 Freq: Status: Active Protocol: Document 11/19/20 15:01 CGR (Rec: 11/19/20 15:11 CGR [id number]) OT Gross Range of Motion Upper Extremity Range of Motion Assessment Within Functional Limits OT Strength Upper Extremity Strength Assessment Within Functional Limits Comments Strength Comments grossly 4/5 OT- Coordination Assessment Upper Extremity Finger to Nose Test Within Functional Limits Finger Tapping Test Within Functional Limits OT-Muscle Tone Assessment Muscle Tone WNL Yes OT Sensation Assessment Edema Edema Absent M9 OT- IP Assessment and Plan Start: 11/19/20 15:01 Freq: Status: Active Protocol: Document 11/19/20 15:01 CGR (Rec: 11/19/20 15:11 CGR [id number]) OT Summary Assessment and Plan Potential Rehabilitation Potential Fair Analytic Complexity at Evaluation Low Summary OT Impairments Pain,Balance,Functional Cognition,Functional Mobility, Grooming,Dressing,Toileting, Bathing,Toilet Transfers, Shower Transfers,Activity Tolerance Progress Towards Goals Slow Progress due to Pain,Slow Progress due to Medical Issues Assessment Summary Pt presents as a low complexity evaluation s/p admit for LE cellulitis. Pt is ambulating without walker on this date and is likely to progress as his pain declines. Recommend d/c to home when medically stable. Pt would benefit from continued OT services to address current declines to safety and ADLs. Goals Grooming Goal Independent Dressing Goal Independent Toileting Goal Independent Bathing Goal Independent Toilet Transfer Goal Independent Shower Transfer Goal Independent Days to Meet Goals 10 Frequency of Treatment Frequency Of Treatment Once a Day Treatment Plan OT Treatment Plan ADL Training,Functional Cognition Training,Functional Mobility,Patient/Family Education,Discharge Planning Other Treatment Recommendations and Next shower Treatment Focus Discharge Recommendations OT Discharge Recommendations Home Transportation Needs at Discharge Private Vehicle
--- NOTE | 2020-11-19 12:53 | PT-IP ANOTE ---
Pt refused stating he was just up and he was in pain and wanted to sleep.
[2020-11-19] MEDS: HYDROMORPHONE 1 MG INJ IV (13:33)
[2020-11-19] MEDS: SILVER SULFADIAZINE 1% CREAM 50 GM 1 APPLIC TOP (13:57)
--- NOTE | 2020-11-19 18:19 | PC.NURSE ---
Shift note: Patient believes the tylenol he's receiving is aspirin and that we are going to make him bleed to . Asked this RN to prove that tylenol isn't a blood thinner, tried to educate patient but became agitated regarding education so refrained from it. Patient consistently reporting 8 out of 10 pain despite being woken up for assessments and then appearing to fall immediately asleep after he's done talking. FLACC is 1 out of 10 for complaints of pain only.
[2020-11-20] VITALS (13 sets, daily range): BP systolic 105–120; BP diastolic 69–77; PULSE 76–88; RESP 16–19; TEMP 36.1–36.7; O2SAT 93–99
[2020-11-20] MEDS: ACETAMINOPHEN 325 MG TABLET 650 MG PO ×3 (00:01→11:57)
[2020-11-20] MEDS: PIPERACILLIN-TAZO 3.375 GM/50 ML FROZ.PIGGY IV ×2 (02:17→08:07)
[2020-11-20 06:20] LABS: Add Manual Diff / Slide Review NO; Basophils Absolute Auto 100 /uL (0-100); Basophils Percent Auto 1.3 % (0-2); Eosinophils Absolute Auto 700 /uL (0-450); Eosinophils Percent Auto 9.9 % (2-4); Hematocrit 35.4 % (41-53); Hemoglobin 11.5 g/dL (13.5-17.5); Lymphocytes Absolute Auto 1700 /uL (1100-4500); Lymphocytes Percent Auto 25.3 % (25-40); Mean Corpuscular HGB Conc 32.5 % (30-36); Mean Corpuscular Hemoglobin 27.7 PG (26-34); Mean Corpuscular Volume 85.5 fL (80-100); Monocytes Absolute Auto 500 /uL (0-900); Neutrophils Absolute Auto 3800 /uL (1500-7000); Neutrophils Percent Auto 55.5 % (50-75); Platelet Count 527 X10^3/uL (150-400); Red Blood Cell Count 4.14 X10^6/uL (4.5-5.9); Red Cell Distribution Width 14.2 % (11.6-14.8); White Blood Cell Count 6.9 X10^3/uL (4.5-11.0)
[2020-11-20 06:24] LABS: Alanine Aminotransferase 21 IU/L (<50); Albumin Globulin Ratio 0.7 (1.0-2.8); Alkaline Phosphatase 132 U/L (38-126); Aspartate Aminotransferase 34 IU/L (17-59); BUN Creatinine Ratio 17.4 (6-22); Bilirubin Total 0.5 mg/dL (0.2-1.3); Bilirubin Unconjugated 0.2 mg/dL (0.0-1.1); Blood Urea Nitrogen 15 mg/dL (9-20); Carbon Dioxide 30 mmol/L (22-32); Chloride 106 mmol/L (98-107); Estimated Glomerular Filt Rate > 60.0 mL/min (>60); Globulin 4.3 g/dL (1.7-4.1); Glucose 92 mg/dL (80-110); HEMOLYSIS 91 (0-50); Magnesium 2.4 mg/dL (1.6-2.3); Sodium 135 mmol/L (137-145); Total Protein 7.3 g/dL (6.3-8.2)
[2020-11-20 06:25] LABS: Potassium 4.7 mmol/L (3.4-5.1)
[2020-11-20] MEDS: ENOXAPARIN 40 MG/0.4 ML SYRINGE SUBCUT (08:07)
--- NOTE | 2020-11-20 09:22 | P.PN_ITS ---
Subjective Subjective Date Patient Seen: 11/20/20 Time Patient Seen: 09:22 Interval history: He is much more interactive today. He makes a lot of vocalizations about pain and burning when I remove his dressings from the legs and arms to take a better look at those today. He Continues to have a large ulcer from the picking on the right calf among many others. There is no redness or other cellulitis ongoing. He will be changed from Zosyn to oral Cipro today and the topical treatments will be changed from Silvadene to mupirocin on the biggest ulcer and triamcinolone on all of the other scabs and dry skin that he has. His white count is 6 9. The BMP is normal. Magnesium is 2.4 with an albumin of 3 0. Exam Vital Signs (past 8 hours): - 11/20/20 05:00 11/20/20 08:00 Temperature 97.6 F 97.0 F L Pulse Rate 87 84 Respiratory Rate 18 18 Blood Pressure 114/77 105/70 Pulse Oximetry 96 99 Oxygen Delivery Method Room Air Oxygen Flow Rate 0 Narrative Exam Narrative: He is more interactive today He actually talks to me and answers questions Heart is regular rate and rhythm without murmur Lungs are clear to auscultation bilaterally Abdomen is soft, bowel sounds positive, nontender, no organomegaly Extremities have no ankle edema Skin there are multiple dry skin scabs on his arms and legs with several of them open ulcers oozing serous or pustule fluid. The biggest scab is on the right calf. He is also described as having a superficial coccyx ulcer. Objective Labs Result Diagrams: 11/20/20 06:05 11/20/20 06:05 Labs: Laboratory Results - last 24 hr 11/20/20 11/20/20 06:05 06:05 WBC 6.9 RBC 4.14 L Hgb 11.5 L Hct 35.4 L MCV 85.5 MCH 27.7 MCHC 32.5 RDW 14.2 Plt Count 527 H Neut % (Auto) 55.5 Lymph % (Auto) 25.3 [place] % (Auto) 8.0 Eos % (Auto) 9.9 H Baso % (Auto) 1.3 Neut # (Auto) 3800 Lymph # (Auto) 1700 [place] # (Auto) 500 Eos # (Auto) 700 H Baso # (Auto) 100 Sodium 135 L Potassium 4.7 Chloride 106 Carbon Dioxide 30 BUN 15 Creatinine 0.86 Estimated GFR > 60.0 BUN/Creatinine Ratio 17.4 Glucose 92 Calcium 8.0 L Magnesium 2.4 H Total Bilirubin 0.5 Conjugated Bilirubin 0.0 Unconjugated Bilirubin 0.2 AST 34 ALT 21 Alkaline Phosphatase 132 H Total Protein 7.3 Albumin 3.0 L Globulin 4.3 H Albumin/Globulin Ratio 0.7 L PFSH Medical History (Updated 11/18/20 @ 03:18 by Igor Flores DO) BPH (benign prostatic hyperplasia) Sciatica Varicose veins of both lower extremities Surgical History H/O neck surgery History of prostate surgery Social History household members: none Smoking Status: Current some day smoker alcohol intake: current Assessment & Plan Assessment & Plan narrative: This is a 65-year-old male patient with past medical history of sciatica, varicose veins and BPH who presented to the ER with 3 weeks of lower extremity swelling with extensive draining wounds in various stages of healing admitted for bilateral lower extremity cellulitis. 1. Bilateral lower extremity cellulitis, acute, present on admission, active -the patient initially had marked swelling pain and redness bilateral lower legs with multiple wounds in various stages of healing. The patient reports no prior history of venous stasis or venous stasis ulcers and reports that the wounds developed over 3 weeks worsening in the previous 2 days. -patient had elevated white count at 13.4 with elevated neutrophils at 11,000. Sed rate was 82 with a CRP of 8.1 but a procalcitonin that is less than 0.05. Now improved after initial antibiotic therapy. -CT scan finds extensive cellulitis bilateral lower extremities, extensive fasciitis without evidence of necrotizing fasciitis bilateral lower extremities, no abscess no evidence of osteomyelitis. -Dr. Dangelo was consulted and evaluated the patient and found no surgical intervention was indicated and felt infection was not necrotizing fasciitis considering CT and lab results and clinical assessment. -in the ER the patient received clindamycin, Zosyn and vancomycin. Continued Zosyn 3.375 g IV every 6 hours and vancomycin initially. Cultures now growing Group A strep and Proteus, will continue on zosyn and discontinue vancomycin pending final proteus sensitivities. He was transitioned to oral Cipro on 11/20. -TTE without evidence of vegetation, blood cultures negative thus far. Consider MONICO due to 10/19 systolic heart murmur. -wound care orders now that he is mostly healer changed to mupirocin on the open lesions and triamcinolone throughout on both upper and lower extremities to decrease dry skin cracking and expedite scab healing -he need ongoing wound care, best given in a detention facility, but will likely be discharging home tomorrow instead 2. Lower urinary tract infection, acute, present on admission, active -patient has prior history of BPH and has undergone prostate surgery. Patient reports no symptoms. -patient with elevated white count at 13.4 with 11,000 neutrophils. Urinalysis was positive for protein, 1+ blood, 3+ leukocyte esterase, 30-100 wbc's and many bacteria. Urine was sent for culture. -the patient has received multiple antibiotics prior to obtaining the urinalysis. Ultimately his urine culture grew strep group B which is likely already adequately treated with the Zosyn. Now on 11/20 changed to Cipro oral 3. Hyponatremia, mild, present on admission, active -sodium on initial labs is 131. Sodium on 11/20 is 135. -received a bolus of lactated Ringer's in the emergency department was on lactated Ringer's infusion. Ordered normal saline 100 cc/hour on admission which was stopped 11/19. 4. Substance abuse, methamphetamine, active. -Patient endorsed methamphetamine use to admitting RN with last use prior to presentation to the ER. -urinary drug screen is obtained which is positive for amphetamine, methamphetamine. -he has declined a chemical dependency evaluation with psychiatric social worker. Dispo: Inpatient, anticipate discharge home or to detention facility for ongoing wound care in 1 day on 11/21. Will see how he ambulates with PT/OT. COVID-19: negative DVT: Lovenox daily
[2020-11-20] MEDS: HYDROMORPHONE 2 MG TABLET 4 MG PO (10:14)
[2020-11-20] MEDS: TRIAMCINOLONE 0.1% CREAM 1 APPLIC TOP (10:37)
[2020-11-20] MEDS: MUPIROCIN CREAM 15 GM 1 APPLIC TOP (10:37)
[2020-11-20] MEDS: SODIUM CHLORIDE 0.9% 1,000 ML 100 ML IV ×2 (11:18)
--- NOTE | 2020-11-20 11:41 | CM.DPC ---
DCP Cont: Per MD, pt's ulcers and open wounds are still fairly significant but seem to be making progress and slowly improving and can likely switch to oral abx today but likely will need a few days more in the hospital to be safe for d/c home. Wound care is not extensive but fairly simple but needs daily care. SW met bedside with pt and explained role and pt confirms he is feeling a little better but still not able to ambulate independently as he does at baseline and does not feel quite stable for d/c home yet. SW discussed possible option of SNF at d/c for ongoing strengthening and nursing care through his insurance and pt declines SNF at this time. SW discussed HH services and frequency and pt initially agreeable but then became agitated and frustrated with SW stating he feels like we are trying to get into my business and personal life and have people just come by my house any time they want. SW attempted to explain and discuss that these were just two possible options available to him for support at d/c to decrease his risk of infection and readmit. Pt states he would prefer proving himself by attending outpt appointments. Pt also declines discussing positive UDS or drug use. Pt states he is not in contact with any of his family but have friends/neighbors that stop by to check on him and can provide food when he discharges home. SW updated RN. Plan: SW to follow for pt progress and likely plan of home with outpt wound care/clinic follow up and further PT/OT recommendations as pt seems to be making progress and currently declining any SNF/HH options. TAHIRA Sears
--- NOTE | 2020-11-20 13:31 | PC.NURSE ---
During dressing change, noted superficial coccyx ulcer, charted in skin assessment and provider made aware.
--- NOTE | 2020-11-20 14:17 | OT.IPNOTE ---
Patient declined participation with OT. Will follow-up 11/20/20.
--- NOTE | 2020-11-20 16:43 | PT.IPTN ---
Current Diagnoses Cellulitis of left lower limb (11/17/20) Physical Therapy Treatment Note M2 PT-IP Current Condition Start: 11/18/20 13:15 Freq: NEEDED Status: Active Protocol: Document 11/18/20 11:37 AB (Rec: 11/18/20 13:58 AB [id number]) Physical Therapy Current Condition Current Condition Evaluation Date 11/18/20 Treatment Diagnosis BLE cellulitis; difficulty in walking Onset Date 11/17/20 M3 PT-IP Subjective Start: 11/18/20 13:15 Freq: NEEDED Status: Active Protocol: Document 11/20/20 16:43 DLM (Rec: 11/20/20 17:05 DLM [id number]) Subjective Physical Therapy Visit Type Type Treatment Note Visit Start Time 16:30 Visit Stop Time 16:43 Total Visit Minutes 13 Number of INFORMATION TECHNOLOGY AUDIT MANAGER Visits 0 Physical Therapy Visit Comments Patient Comments He agrees to get up and walk, also needs to use the bathroom Therapy Pain Assessment Pain When Pain Assessed During Mobility Pain Present Pain Present Pain Reported Location Bilateral Lower Leg Intensity 10 Scale Used Numeric (0 - 10) Description Aching,Burning Pain Behaviors Facial Grimacing,Moaning, Wincing Pain Management Techniques Re-positioning M4 PT-IP Mobility and Gait Start: 11/18/20 13:15 Freq: NEEDED Status: Active Protocol: Document 11/20/20 16:43 DLM (Rec: 11/20/20 17:05 DLM [id number]) PT-Bed Mobility Assessment Rolling Type of Rolling Bilateral Level of Assist Independent Supine to Sit Supine to Sit Independent Sit to Supine Sit to Supine Independent Scooting Scooting to Edge of Bed Independent PT-Transfer Assessment Sit to and From Stand Sit to and from Stand Standby Assistance,Use of Upper Extremities Equipment Transfer Assistive Device Gait Belt Transfers Transfer Destination Bed,Toilet Transfer Technique Stand Step Pivot Transfer Ability Level of Assist Standby Assistance Comments Mobility Comments he refused to use the fWW, he reports increased burning in his legs when they are down Gait Assessment Gait Gait Assistance Required: Standby Assistance Distance (Feet) 75 Assistive Devices Assistive Device Gait Belt Gait Deviations General Gait Pattern Antalgic,Decreased Stride Length,Flexed Trunk Factors Limiting Gait Function Factors Limiting Gait Function Decreased Activity Tolerance, Decreased Strength,Pain,Poor Safety Awareness Comments Gait Comments he refused to use the fWW, crepitus can be heard everytime he weight bears on right hip during gait, he likes to hold furniture when it is close but he can take steps without UE support, pt not open to education or training this visit PT-Balance Assessment Sitting Balance and Reactions Static Sitting Balance Ability Normal Dynamic Sitting Balance Ability Good Standing Balance and Reactions Static Standing Balance Ability Good Dynamic Standing Balance Ability Fair Device Used none M5 PT-IP Objective Assessments Start: 11/18/20 13:15 Freq: NEEDED Status: Active Protocol: Document 11/18/20 11:37 AB (Rec: 11/18/20 13:58 AB [id number]) Orientation Orientation/Cognition Level of Alertness Alert Orientation Name,Place,Situation Safety Awareness Decreased Safety Awareness Memory Description Short Term Impaired Strength Lower Extremity Strength Assessment Bilaterally Impaired Hip 3-/5 Knee 3+/5 Comments Strength Comments pain limiting movement Coordination Assessment Gross Coordination Gross Coordination WNL Muscle Tone Muscle Tone WNL Yes M6 PT-IP Treatment Start: 11/18/20 13:15 Freq: NEEDED Status: Active Protocol: Document 11/20/20 16:43 DLM (Rec: 11/20/20 17:05 DLM [id number]) Physical Therapy Treatment Education Education Provided Safety Other Treatments Other Treatment Performed pt not willing to participate in exercises due to the severity of his LE pain, pt returned to bed after ambulating M7 PT-IP Assessment and Plan Start: 11/18/20 13:15 Freq: NEEDED Status: Active Protocol: Document 11/20/20 16:43 DLM (Rec: 11/20/20 17:05 DLM [id number]) PT Summary Assessment and Plan Potential Rehabilitation Potential Fair Summary Impairments Pain,ROM,Strength,Balance, Coordination,Sensation,Tone, Cognition,Bed Mobility, Transfers,Gait,Activity Tolerance Progress Towards Goals Progressing Toward Goals Assessment Summary Angelo is progressing with his mobility and gait. He refuses to use the FWW. He had limited participation in treatment today. Unable to discuss discharge plans with him today . He had minimal conversation during this visit and mostly groaned in pain. He could clearly use assistance to take care of himself at this time and fear he will not be safe to discharge home alone. Unfortunately, he is not open to education this visit. He only agreed to mobilize. Will continue to assess for discharge planning. Goals Bed Mobility Goal Independent Transfer Goal Independent,Front Wheeled Walker Gait Goal Independent,Front Wheel Walker Gait Distance 150 Other Goals improve ambulation using walking stick SBA 150 ft Days to Meet Goals 10 Frequency of Treatment Frequency Of Treatment Once a Day Treatment Plan Physical Therapy Treatment Plan Bed Mobility Training,Transfer Training,Gait Training, Therapeutic Exercise,Balance Retraining,Discharge Planning, Hot or Cold Pack,Neuromuscular Re-ed,Coordination Retraining Recommendations To Nursing Amount of Assist Needed 1 Person Assist Discharge Recommendations PT Discharge Recommendations SNF Rehab Equipment Needed for Home Before pt does not want to use FWW Discharge Transportation Needs at Discharge Private Vehicle,Wheelchair/ Cabulance
--- NOTE | 2020-11-20 19:55 | PC.NURSE ---
Shift note: Notified BIODIESEL PRODUCT DEVELOPMENT MANAGER that pharmacy is out of bactroban cream, had attempted to get a new tube for dressing change tonight and was informed they are out til Saturday, and that there was very little left in current tube and would not be adequate to do full dressing change tonight given the extensive nature of patient's wounds. Okay'd to not do dressing change tonight d/t unavailability of bactroban.
[2020-11-20] MEDS: CIPROFLOXACIN 500 MG TABLET PO (20:35)
[2020-11-21 05:00] VITALS: O2SAT 99
[2020-11-21 05:05] VITALS: BP 128/81; PULSE 79; RESP 18; TEMP 36.8; O2SAT 99
[2020-11-21 05:31] LABS: Add Manual Diff / Slide Review NO; Basophils Absolute Auto 100 /uL (0-100); Basophils Percent Auto 1.5 % (0-2); Eosinophils Absolute Auto 600 /uL (0-450); Eosinophils Percent Auto 8.9 % (2-4); Hematocrit 36.1 % (41-53); Hemoglobin 12.1 g/dL (13.5-17.5); Lymphocytes Absolute Auto 1800 /uL (1100-4500); Mean Corpuscular HGB Conc 33.4 % (30-36); Mean Corpuscular Hemoglobin 28.5 PG (26-34); Mean Corpuscular Volume 85.2 fL (80-100); Monocytes Absolute Auto 500 /uL (0-900); Monocytes Percent Auto 7.5 % (3-14); Neutrophils Absolute Auto 3900 /uL (1500-7000); Neutrophils Percent Auto 56.1 % (50-75); Platelet Count 554 X10^3/uL (150-400); Red Blood Cell Count 4.24 X10^6/uL (4.5-5.9); Red Cell Distribution Width 14.3 % (11.6-14.8)
[2020-11-21 05:37] LABS: Alanine Aminotransferase 21 IU/L (<50); Albumin 3.3 g/dL (3.5-5.0); Albumin Globulin Ratio 0.7 (1.0-2.8); Alkaline Phosphatase 142 U/L (38-126); Aspartate Aminotransferase 27 IU/L (17-59); BUN Creatinine Ratio 16.7 (6-22); Bilirubin Total 0.1 mg/dL (0.2-1.3); Bilirubin Unconjugated 0.1 mg/dL (0.0-1.1); Blood Urea Nitrogen 14 mg/dL (9-20); Calcium 8.5 mg/dL (8.4-10.2); Carbon Dioxide 29 mmol/L (22-32); Chloride 105 mmol/L (98-107); Estimated Glomerular Filt Rate > 60.0 mL/min (>60); Globulin 4.6 g/dL (1.7-4.1); Glucose 97 mg/dL (80-110); HEMOLYSIS < 15 (0-50); Magnesium 2.4 mg/dL (1.6-2.3); Potassium 4.2 mmol/L (3.4-5.1); Sodium 136 mmol/L (137-145); Total Protein 7.9 g/dL (6.3-8.2)
[2020-11-21 08:10] VITALS: BP 109/56; PULSE 85; RESP 16; TEMP 36.9; O2SAT 98
[2020-11-21] MEDS: CIPROFLOXACIN 500 MG TABLET PO (08:15)
[2020-11-21] MEDS: ENOXAPARIN 40 MG/0.4 ML SYRINGE SUBCUT (08:15)
[2020-11-21 09:00] VITALS: O2SAT 96
--- NOTE | 2020-11-21 09:37 | PT.IPTN ---
Current Diagnoses Cellulitis of left lower limb (11/17/20) Physical Therapy Treatment Note M2 PT-IP Current Condition Start: 11/18/20 13:15 Freq: NEEDED Status: Active Protocol: Document 11/18/20 11:37 AB (Rec: 11/18/20 13:58 AB [id number]) Physical Therapy Current Condition Current Condition Evaluation Date 11/18/20 Treatment Diagnosis BLE cellulitis; difficulty in walking Onset Date 11/17/20 M3 PT-IP Subjective Start: 11/18/20 13:15 Freq: NEEDED Status: Active Protocol: Document 11/21/20 09:26 SAK (Rec: 11/21/20 09:37 SAK [id number]) Subjective Physical Therapy Visit Type Type Treatment Note Visit Start Time 09:04 Visit Stop Time 09:26 Total Visit Minutes 22 Number of BONDING MOLDER Visits 0 Physical Therapy Visit Comments Patient Comments Patient reports pain in right hip 04/22, still horrible, but better than it was. Patient reports he was supposed to get a right CATIA but it was cancelled due to Covid, has never gotten in rescheduled. Refuses use of walker, willing to use cane. M4 PT-IP Mobility and Gait Start: 11/18/20 13:15 Freq: NEEDED Status: Active Protocol: Document 11/21/20 09:26 SAK (Rec: 11/21/20 09:37 SAK [id number]) PT-Transfer Assessment Sit to and From Stand Sit to and from Stand Standby Assistance Equipment Transfer Assistive Device Gait Belt,Straight Cane Gait Assessment Gait Gait Assistance Required: Standby Assistance Distance (Feet) 85 Assistive Devices Assistive Device Gait Belt,Straight Cane Gait Deviations General Gait Pattern Antalgic,Decreased Stride Length,Flexed Trunk Factors Limiting Gait Function Factors Limiting Gait Function Decreased Activity Tolerance, Decreased Strength,Pain,Poor Safety Awareness Comments Gait Comments Patient refused use of FWW, willing to use cane but prefers to use in right UE; willing to try in left UE as recommended by PT, also tried putting weight through both hands onto cane, but again refused use of walker or even 2 canes despite the hip pain. Audible crepitus right hip with gait, seems he would benefit highly from CATIA. M5 PT-IP Objective Assessments Start: 11/18/20 13:15 Freq: NEEDED Status: Active Protocol: Document 11/18/20 11:37 AB (Rec: 11/18/20 13:58 AB [id number]) Orientation Orientation/Cognition Level of Alertness Alert Orientation Name,Place,Situation Safety Awareness Decreased Safety Awareness Memory Description Short Term Impaired Strength Lower Extremity Strength Assessment Bilaterally Impaired Hip 3-/5 Knee 3+/5 Comments Strength Comments pain limiting movement Coordination Assessment Gross Coordination Gross Coordination WNL Muscle Tone Muscle Tone WNL Yes M6 PT-IP Treatment Start: 11/18/20 13:15 Freq: NEEDED Status: Active Protocol: Document 11/21/20 09:26 [facility] (Rec: 11/21/20 09:37 [facility] [id number]) Physical Therapy Treatment Other Treatments Other Treatment Performed Gluteal sets, quad sets x 10 ea M7 PT-IP Assessment and Plan Start: 11/18/20 13:15 Freq: NEEDED Status: Active Protocol: Document 11/21/20 09:26 SAK (Rec: 11/21/20 09:37 [facility] [id number]) PT Summary Assessment and Plan Potential Rehabilitation Potential Fair Summary Impairments Pain,ROM,Strength,Balance, Coordination,Sensation,Tone, Cognition,Bed Mobility, Transfers,Gait,Activity Tolerance Progress Towards Goals Progressing Toward Goals Assessment Summary Patient willing to do gait, though not with recommended walker or use of cane on left. Was willing to do a couple isometric exercises after gait . When subject of discharge brought up, patient started c/ o family wanting to take advantage of him and get him out of the way, and I just don't want to talk about it. Appears he would benefit from assistance at home after discharge. Goals Bed Mobility Goal Independent Transfer Goal Independent,Front Wheeled Walker Gait Goal Independent,Front Wheel Walker Gait Distance 150 Other Goals improve ambulation using walking stick SBA 150 ft Days to Meet Goals 7 Frequency of Treatment Frequency Of Treatment Once a Day Treatment Plan Physical Therapy Treatment Plan Bed Mobility Training,Transfer Training,Gait Training, Therapeutic Exercise,Balance Retraining,Discharge Planning, Hot or Cold Pack,Neuromuscular Re-ed,Coordination Retraining Other Recommendations and Next Treatment Add hip add and abd isometric Focus as patient tolerates Recommendations To Nursing Amount of Assist Needed 1 Person Assist Discharge Recommendations PT Discharge Recommendations SNF Rehab Equipment Needed for Home Before pt does not want to use FWW Discharge Transportation Needs at Discharge Private Vehicle,Wheelchair/ Cabulance
--- NOTE | 2020-11-21 10:08 | PM.DS.1 ---
History of Present Illness History of Present Illness Date Patient Seen: 11/21/20 Time Patient Seen: 10:08 Chief complaint: swollen legs and feet, scabs and lessions Narrative: As per HÉCTOR Cooper: Mr. Lenin Bautista is a 65-year-old and male who is a current smoker and has a past medical history significant for sciatica, varicose veins and BPH who presents to the ER for bilateral lower extremity swelling and draining wounds for over 2 weeks. The patient is a poor historian and provides conflicting information to providers. The patient reports leg swelling and wounds for 3 weeks that have been draining pus and are in various stages of healing. He describes developing redness and pain over the last 2 days prompting him to present to the ER. The patient states he has no previous history of leg swelling or skin issues. He has wounds on bilateral lower extremities as well as upper extremities. The patient denies drug use to this provider however he tells the admitting nurse that he uses methamphetamine regularly with last use today prior to arrival. The patient denies complaints of fevers or chills has had no rigors. He denies headaches or dizziness, nasal congestion or sore throat. He denies complaints of chest pain or palpitations. He denies shortness of breath cough or wheezing. He has had no epigastric or abdominal pain no nausea vomiting and denies diarrhea constipation. He does not recall his last bowel movement. He denies urinary frequency urgency or burning. Upon arrival to the ER the patient has a temperature 98.8?, heart rate 98, blood pressure 137/93, respiratory rate of 28, saturation 96% with a pain level of 8/[address] legs[address] A [address] of bilateral lower extremities obtained finding extensive cellulitis bilateral lower extremities, extensive fasciitis without evidence of necrotizing fasciitis bilateral lower extremities, no abscess, no evidence of osteomyelitis, arterial and venous structures are patent. On laboratory analysis he has an elevated white count at 13.4, hemoglobin of 12.5, hematocrit of 37.6 and platelets of 373. He has a low sodium at 131 a BUN of 18 and creatinine 0.98. His nonfasting glucose is 119. On liver functions has a total bilirubin of 0.5, AST of 69, ALT of 34 and alkaline phosphatase 182. His sed rate is 82 with a CRP of 8.1. Procalcitonin is less than 0.05. COVID screening is negative. Gram stain from the wound finds Gram-positive cocci and Gram-negative rods. General surgery is asked to consult and Dr. Dangelo has evaluated the patient finding no need for surgical intervention. In the ER the patient received lactated Ringer's, Dilaudid 0.5 mg, Zosyn, vancomycin, clindamycin after obtaining wound cultures and blood cultures. The patient is admitted to the medicine service for bilateral lower extremity cellulitis and wound infection. Discharge Providers Provider Date of admission: 11/17/20 22:33 Discharge Date: 11/21/20 Consults: 11/17/20 22:51 Consult to Discharge Planning Routine Comment: Consult to Physical Therapy Evaluate & Treat Comment: Physician Instructions: Evaluate and Treat 11/18/20 10:17 Consult to EVP [employer]ATE[employer] - Php Engineer Routine Comment: Pt admits to active methamphetamine use 11/18/20 11:14 Consult to Occupational Therapy Evaluate & Treat Comment: Physician Instructions: Evaluate and treat Discharge provider: Singh Salcido DO Summary Hospital Course Discharge Diagnosis: Please see hospital course by problem list noted below. Hospital Course: This is a 65-year-old male patient with past medical history of sciatica, varicose veins and BPH who presented to the ER with 3 weeks of lower extremity swelling with extensive draining wounds in various stages of healing admitted for bilateral lower extremity cellulitis. 1. Bilateral lower extremity cellulitis, acute, present on admission, active -the patient initially had marked swelling pain and redness bilateral lower legs with multiple wounds in various stages of healing. The patient reports no prior history of venous stasis or venous stasis ulcers and reports that the wounds developed over 3 weeks worsening in the previous 2 days. -patient had elevated white count at 13.4 with elevated neutrophils at 11,000. Sed rate was 82 with a CRP of 8.1 but a procalcitonin that is less than 0.05. Now improved after initial antibiotic therapy. -CT scan finds extensive cellulitis bilateral lower extremities, extensive fasciitis without evidence of necrotizing fasciitis bilateral lower extremities, no abscess no evidence of osteomyelitis. -Dr. Dangelo was consulted and evaluated the patient and found no surgical intervention was indicated and felt infection was not necrotizing fasciitis considering CT and lab results and clinical assessment. -in the ER the patient received clindamycin, Zosyn and vancomycin. Continued Zosyn 3.375 g IV every 6 hours and vancomycin initially. Cultures now growing Group A strep and Proteus, will continue on zosyn and discontinue vancomycin pending final proteus sensitivities. He was transitioned to oral Cipro on 11/20, will continue on discharge for an additional 7 days. -TTE without evidence of vegetation, blood cultures negative thus far. -follow up with PCP in the next 1-2 days for recommended outpatient wound care referral. 2. Lower urinary tract infection, acute, present on admission, active -patient has prior history of BPH and has undergone prostate surgery. Patient reports no symptoms. -patient with elevated white count at 13.4 with 11,000 neutrophils. Urinalysis was positive for protein, 1+ blood, 3+ leukocyte esterase, 30-100 wbc's and many bacteria. -the patient has received multiple antibiotics prior to obtaining the urinalysis. Ultimately his urine culture grew strep group B which is likely already adequately treated with the Zosyn. Now on 11/20 changed to Cipro as noted above. This therapy will more than adequately cover his UTI. 3. Hyponatremia, mild, present on admission, resolved -sodium on initial labs is 131. Sodium on 11/20 is 135. -received a bolus of lactated Ringer's in the emergency department was on lactated Ringer's infusion. Ordered normal saline 100 cc/hour on admission which was stopped 11/19. 4. Substance abuse, methamphetamine, active. -Patient endorsed methamphetamine use to admitting RN with last use prior to presentation to the ER. -urinary drug screen is obtained which is positive for amphetamine, methamphetamine. -he has declined a chemical dependency evaluation with social worker health services. Dispo: discharged home. Follow up at [facility] recommended in 1-2 days for continued wound care and outpatient wound care referral. Exam Vital Signs (past 8 hours): - 11/21/20 05:00 11/21/20 05:05 11/21/20 08:10 Temperature 98.3 F 98.5 F Pulse Rate 79 85 Respiratory Rate 18 16 Blood Pressure 128/81 109/56 L Pulse Oximetry 99 99 98 11/21/20 09:00 Temperature Pulse Rate Respiratory Rate Blood Pressure Pulse Oximetry 96 Oxygen Delivery Method Room Air Oxygen Flow Rate 0 Narrative Exam Narrative: GENERAL APPEARANCE: well developed, poorly nourished male who is chronically ill-appearing. HEENT: Normocephalic, PERRLA, conjunctiva clear, EOMs intact without nystagmus, no sinus tenderness to percussion, no rhinorrhea, mucous membranes are pink and dry. LYMPH NODES: no cervical or supraclavicular lymphadenopathy. SKIN: cellulitic changes bilateral lower legs with mild warmth and tenderness beneath bandages, chronic wounds now bandaged with sloughing of skin onto dressings. HEART: regular rate and rhythm, S1-S2, no murmur, no rubs or gallops, brisk capillary refill, 3+ edema bilateral feet LUNGS: clear to auscultation bilaterally, no coarseness crackles or wheezing, no cough present CHEST: Symmetrical movement, no accessory muscle use, good tidal volume, no pain on AP or lateral compression. ABDOMEN: Soft, no epigastric or abdominal tenderness, no organomegaly, no flank or suprapubic tenderness, active bowel tones. BACK: Normal curvature, nontender to palpation, no CVA tenderness on percussion EXTREMITIES: moves all extremities, chronic bilateral LE tenderness. NEUROLOGIC: AAO x person and place, no lateralized neurologic deficits, cranial nerves II-XII grossly intact, numb fingertips of the right hand. PSYCH: cooperative and pleasant, normal affect. Objective Labs Result Diagrams: 11/21/20 05:11 11/21/20 05:11 Labs: Laboratory Results - last 24 hr 11/21/20 11/21/20 05:11 05:11 WBC 7.0 RBC 4.24 L Hgb 12.1 L Hct 36.1 L MCV 85.2 MCH 28.5 MCHC 33.4 RDW 14.3 Plt Count 554 H Neut % (Auto) 56.1 Lymph % (Auto) 26.0 [place] % (Auto) 7.5 Eos % (Auto) 8.9 H Baso % (Auto) 1.5 Neut # (Auto) 3900 Lymph # (Auto) 1800 [place] # (Auto) 500 Eos # (Auto) 600 H Baso # (Auto) 100 Sodium 136 L Potassium 4.2 Chloride 105 Carbon Dioxide 29 BUN 14 Creatinine 0.84 Estimated GFR > 60.0 BUN/Creatinine Ratio 16.7 Glucose 97 Calcium 8.5 Magnesium 2.4 H Total Bilirubin 0.1 L Conjugated Bilirubin 0.0 Unconjugated Bilirubin 0.1 AST 27 ALT 21 Alkaline Phosphatase 142 H Total Protein 7.9 Albumin 3.3 L Globulin 4.6 H Albumin/Globulin Ratio 0.7 L [facility] Medical History (Updated 11/18/20 @ 03:18 by Igor Flores DO) BPH (benign prostatic hyperplasia) Sciatica Varicose veins of both lower extremities Surgical History H/O neck surgery History of prostate surgery Social History household members: none Smoking Status: Current some day smoker alcohol intake: current Discharge Plan Discharge Plan Patient Disposition: Home Provider Discharge Comment: You were admitted to the hospital for bilateral cellulitis and possible urinary tract infection improving with oral antibiotics. Please complete course of antibiotics at home. Please follow up with PCP in the next few days, recommend wound care referral. Continue antibacterial cream to open lesions. Discharge orders & Medications Prescriptions: New ciprofloxacin HCl [Cipro] 500 mg Tablet 500 mg PO BID 7 Days Qty: 14 RF: 0 mupirocin 2 % ointment 1 applic topical BID 14 Days Qty: 22 RF: 0 Continued hydrocodone-acetaminophen [[place]] 5-325 mg tablet 1 tab PO Q4-6H PRN (Reason: pain) Qty: 7 RF: 0 Discharge Health Status Multidrug resistant organism: No MDRO Diet/Activity/Treatments Diet: Diet as Tolerated Activity: As tolerated Skin/Wound/Dressing Care Skin care: Leave scabbed over areas open to air, Dressing: non-stick dressings b/l LE other than above areas. Antibiotic cream BID. Visit Report/Discharge Packet Instructions: Ciprofloxacin
[2020-11-21] MEDS: SODIUM CHLORIDE 0.9% FLUSH 10 ML IV (11:48)
[2020-11-21] MEDS: MUPIROCIN CREAM 15 GM 1 APPLIC TOP (11:48)
[2020-11-21] MEDS: TRIAMCINOLONE 0.1% CREAM 1 APPLIC TOP (11:48)
[2020-11-21] MEDS: HYDROMORPHONE 2 MG TABLET 4 MG PO (11:51)
--- NOTE | 2020-11-21 12:03 | CM.DPC ---
DCP Con't TAHIRA and FILLING ROOM OPERATOR Student met with patient at bedside this date. He was alert and oriented. Educated and discussed patients need for wound care to be done daily to every other day patient acknowledge the need and reported he will either access care at the [facility]. Patient aware if they are unable to complete wound care he can obtain a referral. Patient requesting assistance with transport home. FILLING ROOM OPERATOR asked MINE Vance to arrange via Medicaid. PLAN: Transport initiated patient to D/C home. TAHIRA Jordan, FILLING ROOM OPERATOR Student
--- NOTE | 2020-11-21 13:59 | PC.NURSE ---
Chamnged dressings to bilat arms and legs, as ordered. Went over dc instructions and medications with patient, questions answered. Patient taken via wc to [employer] transport, patient had all belongings.
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
--- NOTE | 2020-12-18 16:29 | PC.NURSE ---
pt called to see if we could call in more antibiotics and pain medication. i explained if he thinks the infection is back he should be reevaluated. he didn't want to come to the ed, but his friend did ask able the local walk in clinics.
== END 2020-11-21 14:01 | disposition home or self-care (01) | DRG 603 ==
LOC: ED 19:59 → AC 22:33
PROVIDERS: Internal Medicine; Admitting Provider Nurse Practitioner Adult Health; Emergency Provider Emergency Medicine; Referring Provider Emergency Medicine; Visit Provider Nurse Practitioner Adult Health
DX: L03.116 Cellulitis of left lower limb (principal); N39.0 Urinary tract infection, site not specified; E87.1 Hypo-osmolality and hyponatremia; L97.219 Non-pressure chronic ulcer of right calf with unspecified severity; L03.115 Cellulitis of right lower limb; M72.9 Fibroblastic disorder, unspecified; F15.10 Other stimulant abuse, uncomplicated; F17.210 Nicotine dependence, cigarettes, uncomplicated; Z20.822 Contact with and (suspected) exposure to COVID-19; R01.1 Cardiac murmur, unspecified
CPT/HCPCS: 36415; 73701; 80048; 80053; 80076; 80305; 81001; 83036; 83605; 83735; 84145; 85025; 85651; 86140; 87040; 87070; 87075; 87077; 87086; 87147; 87186; 87205; 87635; 93306; 96365; 96367; 96375; 97116; 97162; 97165; 99284; 99406; C9803; J1170; J1642; J1650; J2543; J3370; Q9967

== ENCOUNTER 2024-04-13 22:56 | Emergency (ER) | payer OTHER, MEDICAID, SELFPAY ==
[2024-04-13 23:18] VITALS: BP 144/90; PULSE 102; RESP 16; TEMP 37.1; O2SAT 96; BMI 22.6
--- NOTE | 2024-04-13 23:51 | EKG_ITS ---
[id number] [address] Test Date: 2024-04-14 Pat Name: Lenin Bautista Department: [facility] Room: Gender: Male Chiropractor Sole Practitioner: CHUY : 1955 Requested By: Order Number: [id number] Reading MD: Singh Salcido Measurements Intervals [place] Rate: 91 P: 53 [place]: 146 QRS: -41 QRSD: 92 T: 48 QT: 364 QTc: 447 Interpretive Statements Sinus rhythm with premature atrial complexes Left axis deviation Minimal voltage criteria for LVH, may be normal variant ( [place] product ) Electronically Signed On 04-14-2024 18:26:18 PDT by Singh Salcido
[2024-04-14] VITALS (12 sets, daily range): BP systolic 142–170; BP diastolic 78–102; PULSE 88–104; RESP 15–18; TEMP 36.8; O2SAT 97–99
[2024-04-14] LABS: Add Manual Diff / Slide Review NO; Basophils Absolute Auto 100 /uL (0-100); Basophils Percent Auto 1.2 % (0-2); Eosinophils Absolute Auto 400 /uL (0-450); Eosinophils Percent Auto 3.3 % (2-4); Hematocrit 38.7 % (41-53); Hemoglobin 13.1 g/dL (13.5-17.5); Lymphocytes Absolute Auto 1700 /uL (1100-4500); Mean Corpuscular HGB Conc 33.9 % (30-36); Mean Corpuscular Hemoglobin 29.2 PG (26-34); Monocytes Absolute Auto 800 /uL (0-900); Monocytes Percent Auto 6.9 % (3-14); Neutrophils Absolute Auto 8900 /uL (1500-7000); Neutrophils Percent Auto 74.6 % (50-75); Platelet Count 339 X10^3/uL (150-400); Red Blood Cell Count 4.49 X10^6/uL (4.5-5.9); Red Cell Distribution Width 13.8 % (11.6-14.8); White Blood Cell Count 11.9 X10^3/uL (4.5-11.0)
[2024-04-14 00:17] LABS: Alanine Aminotransferase 22 IU/L (<50); Albumin 3.9 g/dL (3.5-5.0); Alkaline Phosphatase 161 U/L (38-126); Aspartate Aminotransferase 29 IU/L (17-59); BUN Creatinine Ratio 17.5 (6-22); Bilirubin Total 0.4 mg/dL (0.2-1.3); Blood Urea Nitrogen 17 mg/dL (9-20); Calcium 8.2 mg/dL (8.4-10.2); Carbon Dioxide 23 mmol/L (22-32); Chloride 106 mmol/L (98-107); Creatine Kinase 85 U/L (55-170); Estimated Glomerular Filt Rate > 60 mL/min (>60); Globulin 3.8 g/dL (1.7-4.1); Glucose 119 mg/dL (80-110); HEMOLYSIS < 15 (0-50); Potassium 3.8 mmol/L (3.4-5.1); Sodium 136 mmol/L (137-145); Total Protein 7.7 g/dL (6.3-8.2)
[2024-04-14 00:19] LABS: Lactate (Lactic Acid) 1.4 mmol/L (0.7-2.1)
[2024-04-14 00:26] LABS: NT-proBNP (BNP-Adult 18+) 190 pg/mL (<125)
[2024-04-14 00:28] LABS: Troponin I < 0.012 ng/mL (0.01-0.034)
[2024-04-14 00:33] LABS: Procalcitonin 0.054 ng/mL (<0.5)
--- NOTE | 2024-04-14 03:56 | ED.SKABFB ---
HPI - Skin/Abscess/Foreign Bdy General Chief complaint: Skin/Abscess/Foreign Body Stated complaint: states skin inf on lt ankle Time Seen by Provider: 04/13/24 23:51 Source: patient Mode of arrival: Family Vehicle Limitations: no limitations History of Present Illness HPI narrative: Patient 68-year-old male with history of bilateral cellulitis presenting today with scabbing lesions and dry flaky skin. He reports that the left leg is worse than the right it has been ongoing for the last couple of days. He is sharp shooting pain. No fever or chills. He has been lying in bed for the last few days. No chest pain or palpitations. He looks like he was admitted previously in 2020 for something similar. He is afebrile here. Related Data Previous Rx's Medication Instructions Recorded hydrocodone 5 mg-acetaminophen 325 1 tab PO Q4-6H PRN pain #7 tabs 05/05/20 mg tablet (Nekoma) cephalexin 500 mg capsule 500 mg PO TID #21 caps 04/14/24 Allergies Allergy/AdvReac Type Severity Reaction Status Date / Time naproxen [NAPROXEN] Allergy Unknown Verified 11/17/20 18:49 Patient History Medical History (Updated 04/14/24 @ 06:43 by Nora Cordoba DO) BPH (benign prostatic hyperplasia) Varicose veins of both lower extremities Sciatica Surgical History History of prostate surgery H/O neck surgery Social History household members: none Smoking Status: Current some day smoker alcohol intake: current Smoking Status: Current some day smoker alcohol intake frequency: 0-2 drinks per day Substance Use Type: methamphetamine Exam Initial Vital Signs Initial Vital Signs: Vital Signs Temperature 98.8 F 04/13/24 23:18 Pulse Rate 102 H 04/13/24 23:18 Respiratory Rate 16 04/13/24 23:18 Blood Pressure 144/90 H 04/13/24 23:18 Pulse Oximetry 96 04/13/24 23:18 Oxygen Delivery Method Room Air 04/13/24 23:18 GENERAL: Alert 68-year-old male sleeping no acute distress easily arousable HEENT: Head atraumatic,EOMI, pupils reactive, face symmetric, [moist] mucous membranes CARDIOVASCULAR: Regular rate and rhythm without murmurs, rubs or gallops. RESPIRATORY: Breath sounds equal bilaterally, no wheezes rales or rhonchi. ABDOMEN: Soft, nontender. Normoactive bowel sounds all 4 quadrants. No guarding or rebound. EXTREMITIES: Normal range of motion, no clubbing. Left leg more edema than the right leg Neurovascularly intact NEUROLOGICAL: Alert and oriented x4.Normal gait and speech. SKIN: Dry flaking skin with some erythema left lower ankle. Right anterior ankle Course Orders Ordered: Discontinued Medications Acetaminophen (Acetaminophen 325 Mg Tablet) 975 mg PO NOW ONE Stop: 04/14/24 04:05 Last Admin: 04/14/24 04:18 Dose: 975 mg Documented By: Ceftriaxone Sodium 1,000 mg/ (Sodium Chloride) 100 mls @ 200 mls/hr IV NOW ONE Stop: 04/14/24 04:05 Last Admin: 04/14/24 04:20 Dose: 200 mls/hr Documented By: Vital Signs Vital signs: Vital Signs - 8 hr 04/13/24 23:18 04/14/24 00:40 04/14/24 00:41 Temperature 98.8 F Pulse Rate 102 H 94 H Respiratory Rate 16 Blood Pressure 144/90 H 142/92 H Pulse Oximetry 96 98 Oxygen Delivery Method Room Air 04/14/24 01:00 04/14/24 01:30 04/14/24 01:47 Temperature Pulse Rate 88 88 99 H Respiratory Rate 18 Blood Pressure Pulse Oximetry 97 97 99 Oxygen Delivery Method 04/14/24 01:47 04/14/24 02:00 04/14/24 02:00 Temperature Pulse Rate 104 H Respiratory Rate Blood Pressure 148/100 H 147/102 H Pulse Oximetry 97 Oxygen Delivery Method 04/14/24 02:30 04/14/24 02:30 04/14/24 03:00 Temperature Pulse Rate 95 H 96 H Respiratory Rate Blood Pressure 170/98 H Pulse Oximetry 98 97 Oxygen Delivery Method 04/14/24 03:00 04/14/24 03:30 04/14/24 03:30 Temperature Pulse Rate 89 Respiratory Rate Blood Pressure 158/98 H 167/102 H Pulse Oximetry 98 Oxygen Delivery Method 04/14/24 04:00 04/14/24 04:30 04/14/24 04:30 Temperature Pulse Rate 91 H 95 H Respiratory Rate Blood Pressure 156/98 H Pulse Oximetry 98 98 Oxygen Delivery Method 04/14/24 06:45 Temperature 98.2 F Pulse Rate 89 Respiratory Rate 15 Blood Pressure 153/78 H Pulse Oximetry 98 Oxygen Delivery Method Room Air MDM - Skin/Abscess/Foreign Bdy Lab Data 04/13/24 23:40 04/13/24 23:40 Labs: Lab Results 04/13/24 04/14/24 Range/Units 23:40 04:40 WBC 11.9 H (4.5-11.0) X10^3/uL RBC 4.49 L (4.5-5.9) X10^6/uL Hgb 13.1 L (13.5-17.5) g/dL Hct 38.7 L (41-53) % MCV 86.0 (80-100) fL MCH 29.2 (26-34) PG MCHC 33.9 (30-36) % RDW 13.8 (11.6-14.8) % Plt Count 339 (150-400) X10^3/uL Neut % (Auto) 74.6 (50-75) % Lymph % (Auto) 14.0 L (25-40) % [place] % (Auto) 6.9 (3-14) % Eos % (Auto) 3.3 (2-4) % Baso % (Auto) 1.2 (0-2) % Neut # (Auto) 8900 H (8520-1394) /uL Lymph # (Auto) 1700 (5635-0176) /uL [place] # (Auto) 800 (0-900) /uL Eos # (Auto) 400 (0-450) /uL Baso # (Auto) 100 (0-100) /uL D-Dimer 661 H (<500) ng/ml Sodium 136 L (137-145) mmol/L Potassium 3.8 (3.4-5.1) mmol/L Chloride 106 (98-107) mmol/L Carbon Dioxide 23 (22-32) mmol/L BUN 17 (9-20) mg/dL Creatinine 0.97 (0.66-1.25) mg/dL Estimated GFR > 60 (>60) mL/min BUN/Creatinine Ratio 17.5 (6-22) Glucose 119 H (80-110) mg/dL Lactate 1.4 (0.7-2.1) mmol/L Calcium 8.2 L (8.4-10.2) mg/dL Total Bilirubin 0.4 (0.2-1.3) mg/dL AST 29 (17-59) IU/L ALT 22 (<50) IU/L Alkaline Phosphatase 161 H (38-126) U/L Total Creatine Kinase 85 (55-170) U/L Troponin I < 0.012 (0.01-0.034) ng/mL NT-Pro-B Natriuret Pep 190 H (<125) pg/mL Total Protein 7.7 (6.3-8.2) g/dL Albumin 3.9 (3.5-5.0) g/dL Globulin 3.8 (1.7-4.1) g/dL Albumin/Globulin Ratio 1.0 (1.0-2.8) Procalcitonin 0.054 (<0.5) ng/mL Imaging Data US - DVT: Radiologist's Impression: Preliminary report unremarkable left lower extremity no DVT identified ECG Data Attestation: I personally reviewed and interpreted this ECG as follows: Prior ECG tracings: not available for review Interpretation: Normal sinus rhythm rate 91 NC interval 146 QRS [address] changes no priors to compare MDM Narrative Medical decision making narrative: Patient is 68-year-old male who has a history of cellulitis presents today with dry flaking erythematous skin. It is worse on the left than the right no gross drainage he is got some scabbed over lesions. Left lower leg is more swollen D-dimer is slightly elevated at 616 ultrasound does not show evidence of DVT suspect that it is more swollen secondary to cellulitis. Patient does have mild leukocytosis of 11.9, lactate 1.4 procalcitonin 0.054 Ultrasound has been reviewed no evidence of DVT Patient is a poor historian Patient does likely have cellulitis is appear chronic there is no gross drainage she is not septic. Mild leukocytosis but afebrile with a normal lactate. Rashes only around his ankles it has not extensive or circumferential. He has given a dose of Rocephin here in the ED Patient has unilateral swelling left greater than right suspicion for congestive heart failure BNP 190 Discharge Plan Departure Patient Disposition: Home Clinical Impression: Cellulitis Instructions: DI for Cellulitis -- Adult Activity Restrictions/Additional Instructions: *You have been diagnosed with cellulitis *What to do: At this time please take antibiotic *Continue to take medications as directed Keflex 500 mg 3 times a day for 7 days *Follow up with your primary care provider in 2-3 days or call [phone] *Return to ER if you should have increasing pain redness drainage fever [or] any new, worsening or concerning symptoms Prescriptions: New cephalexin 500 mg capsule 500 mg PO TID Qty: 21 0RF No Action hydrocodone-acetaminophen [Nekoma] 5-325 mg tablet 1 tab PO Q4-6H PRN (Reason: pain) Qty: 7 0RF Stand Alone Forms: Patient Portal/API
[2024-04-14] MEDS: ACETAMINOPHEN 325 MG TABLET 975 MG PO (04:18)
[2024-04-14] MEDS: cefTRIAXone 1,000 MG in SODIUM CHLORIDE 0.9% 100 ML 200 MG IV (04:20)
[2024-04-14 04:55] LABS: D Dimer 661 ng/ml (<500)
--- NOTE | 2024-04-14 05:11 | DI.US.S_ITS ---
PROCEDURE: US PERIPH VENOUS LOW EXTREM LT INDICATIONS: swelling elevated dimer r/o dvt TECHNIQUE: Real-time imaging, as well as color and pulse Doppler interrogation, were performed of the lower extremity deep veins from the inguinal ligament to the popliteal fossa, with documentation of the visualized calf veins. COMPARISON: None. FINDINGS: The common femoral, femoral, popliteal, and the visualized calf veins are normally compressible, and free of intraluminal thrombus. Color and pulse Doppler demonstrate normal phasic intraluminal flow. There is normal augmentation response to distal compression maneuver. IMPRESSION: No findings of lower extremity deep venous thrombosis. Dictated by: Valerie Lawrence M.D. on 04/14/2024 at 7:25 Approved by: Valerie Lawrence M.D. on 04/14/2024 at 7:25
== END 2024-04-14 06:59 | disposition home or self-care (01) ==
PROVIDERS: Emergency Provider Emergency Medicine
DX: L03.116 Cellulitis of left lower limb (principal)
CPT/HCPCS: 36415; 80053; 82550; 83605; 83880; 84145; 84484; 85025; 85379; 87040; 93005; 93971; 96365; 99284; J0696

== ENCOUNTER 2024-07-13 16:48 | Inpatient (IN) | payer SELFPAY ==
[2024-07-13] VITALS (17 sets, daily range): BP systolic 126–191; BP diastolic 87–116; PULSE 108–130; RESP 16–26; TEMP 37.7–37.9; O2SAT 97–100; BMI 20.6
--- NOTE | 2024-07-13 17:08 | DI.RAD.S_ITS ---
PROCEDURE: XR CHEST 1V INDICATIONS: cough TECHNIQUE: One view of the chest was acquired. COMPARISON: None. FINDINGS: Surgical changes and devices: None. Lungs and pleura: Lungs are clear. No pleural effusions or pneumothorax. Mediastinum: Aortic arch calcifications. Mediastinal contours appear normal. Heart size is normal. Bones and chest wall: No suspicious bony lesions. Overlying soft tissues appear unremarkable. IMPRESSION: No acute cardiopulmonary abnormality is seen. Dictated by: Yousif Villalobos M.D. on 07/13/2024 at 17:40 Approved by: Yousif Villalobos M.D. on 07/13/2024 at 17:40
--- NOTE | 2024-07-13 17:08 | PC.NURSE ---
This RN called [facility] Department at and informed them that this patient had a ankle monitor on him that was cutting off circulation to his left leg. This RN was informed that the chief said to cut it off. Ankle monitor cut off by provider.
--- NOTE | 2024-07-13 17:09 | EKG_ITS ---
[facility] [address] [place] [address] Test Date: 2024-07-13 Pat Name: Lenin Bautista Department: [facility] Room: Gender: Male Director Of Casework: KLAUS : 1955 Requested By: Order Number: [id number] Reading MD: Toby Everett MD Measurements Intervals [place] Rate: 119 P: 45 MS: 146 QRS: -44 QRSD: 84 T: 40 QT: 310 QTc: 436 Interpretive Statements Sinus tachycardia with premature atrial complexes Left axis deviation Moderate voltage criteria for LVH, may be normal variant ( R in aVL , [place] product ) Electronically Signed On 07-14-2024 7:46:56 PDT by Toby Everett MD
--- NOTE | 2024-07-13 17:10 | DI.RAD.S_ITS ---
PROCEDURE: XR ANKLE LT MIN 3V INDICATIONS: infection TECHNIQUE: 3 views of the ankle were acquired. COMPARISON: None. FINDINGS: No acute fracture or dislocation. The ankle mortise is preserved on the nonweightbearing view. No talar dome osteochondral defect. No osseous erosions. Diffuse subcutaneous edema throughout the visualized foot, ankle, and lower calf. No radiographic evidence of subcutaneous emphysema. IMPRESSION: Diffuse subcutaneous edema without other radiographic evidence of osteomyelitis. Dictated by: Yousif Villalobos M.D. on 07/13/2024 at 17:40 Approved by: Yousif Villalobos M.D. on 07/13/2024 at 17:42
--- NOTE | 2024-07-13 17:10 | DI.RAD.S_ITS ---
PROCEDURE: XR FOOT LT MIN 3V INDICATIONS: infection TECHNIQUE: 3 views of the foot were acquired. COMPARISON: None. FINDINGS: No acute fracture or dislocation. 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 No osseous erosions. No radiographic evidence of subcutaneous emphysema. Subcutaneous edema involving the foot and ankle. IMPRESSION: Subcutaneous edema without other radiographic evidence of osteomyelitis. Dictated by: Yousif Villalobos M.D. on 07/13/2024 at 17:42 Approved by: Yousif Villalobos M.D. on 07/13/2024 at 17:43
--- NOTE | 2024-07-13 17:12 | ED.EXTPRO ---
HPI - Extremity Problem <Radha Rubio MD - Last Filed: 07/30/24 18:07> General Chief complaint: Extremity Problem,Nontraumatic Stated complaint: swollen ankle Time Seen by Provider: 07/13/24 17:02 History of Present Illness HPI Narrative: 68-year-old gentleman who is currently under house arrest by [facility] police and has a leg band on his left ankle, it was placed proximally 10 days ago. He comes in complaining of left ankle and foot pain. The band is tight enough that is causing significant edema which in turn is causing the band to dig into his skin and cause skin breakdown with increasing redness and developing cellulitis. I personally cut off the leg band in the emergency department due to need for improved blood flow, lymphatic return and concern for significant infection. Patient presents with a heart rate in the 130 range, febrile to 100.3, slight cough with saturations 99% on room air. Complaining of leg pain and swelling, general malaise and weakness. Additional medical problems include a history of methamphetamine use and currently on no prescription medications. Related Data Home Medications Medication Instructions Recorded Confirmed aspirin 81 mg capsule 81 mg PO PRN PRN headache 07/14/24 07/17/24 Previous Rx's Medication Instructions Recorded acetaminophen 325 mg tablet 650 mg (2 x 325 mg) PO Q6H PRN 07/19/24 pain #1 tab amoxicillin 875 mg-potassium 1 tab PO BID #14 tabs 07/19/24 clavulanate 125 mg tablet gabapentin 300 mg capsule 300 mg PO TID #60 caps 07/19/24 Allergies Allergy/AdvReac Type Severity Reaction Status Date / Time naproxen [NAPROXEN] Allergy Unknown Verified 07/13/24 17:01 Review of Systems <Radha Rubio MD - Last Filed: 07/30/24 18:07> Review of Systems Narrative: Pertinent positive and negative findings as per HPI Patient History <Radha Rubio MD - Last Filed: 07/30/24 18:07> Medical History BPH (benign prostatic hyperplasia) Varicose veins of both lower extremities Sciatica Surgical History History of prostate surgery H/O neck surgery Social History household members: none Smoking Status: Current some day smoker alcohol intake: current Smoking Status: Current some day smoker alcohol intake frequency: 0-2 drinks per day Substance Use Type: does not use Exam <Radha Rubio MD - Last Filed: 07/30/24 18:07> Initial Vital Signs Initial Vital Signs: Vital Signs Temperature 100.3 F H 07/13/24 16:51 Pulse Rate 130 H 07/13/24 16:51 Respiratory Rate 16 07/13/24 16:51 Blood Pressure 126/97 H 07/13/24 16:51 Pulse Oximetry 99 07/13/24 16:51 Oxygen Delivery Method Room Air 07/13/24 16:51 General: Frail-appearing, having difficulty standing up due to his left leg pain, HEENT: Moist mucous membranes, normal sclera with reactive pupils, Respiratory: Lungs are clear to auscultation, no wheezing no rales no rhonchi. Full and symmetrical air movement Cardiac: Tachycardic with no murmurs Abdomen: Soft, nontender, good bowel tones, no flank pain Skin: Chronic venous stasis changes bilaterally. The leg band on the left side is digging into the skin and patient has a applied bit of gauze to try to protect the skin. Foot is significantly swollen distal to the band and calf is swollen proximal. He has good capillary refill in the toes and his foot is hypersensitive Neurologic: Grossly neurologically intact with no obvious asymmetries or abnormalities Extremities: Once the leg band has been removed he does have significant indentation, it almost immediate relief and some of the pressure in the foot, there is skin breakdown and a circular pattern consistent with rubbing on the band Psych: Cooperative, appropriate insight and affect <Steffi Mann MD - Last Filed: 07/13/24 19:43> Initial Vital Signs Initial Vital Signs: Vital Signs Temperature 100.3 F H 07/13/24 16:51 Pulse Rate 130 H 07/13/24 16:51 Respiratory Rate 16 07/13/24 16:51 Blood Pressure 126/97 H 07/13/24 16:51 Pulse Oximetry 99 07/13/24 16:51 Oxygen Delivery Method Room Air 07/13/24 16:51 Course <Radha Rubio MD - Last Filed: 07/30/24 18:07> Orders Ordered: Discontinued Medications Acetaminophen (Acetaminophen 325 Mg Tablet) 650 mg PO Q6H PRN PRN Reason: Fever/Mild Pain (1-3) Last Admin: 07/16/24 16:41 Dose: 650 mg Documented By: Admin: 07/15/24 21:48 Dose: 650 mg Documented By: Admin: 07/14/24 16:40 Dose: 650 mg Documented By: Admin: 07/14/24 05:29 Dose: 650 mg Documented By: VERONICA Hydrocodone Bitart/Acetaminophen (Hydrocodone/Acet 5/325 Tablet) 1 tab PO Q4H PRN PRN Reason: pain Last Admin: 07/19/24 08:29 Dose: 1 tab Documented By: Admin: 07/18/24 19:58 Dose: 1 tab Documented By: Admin: 07/18/24 14:32 Dose: 1 tab Documented By: Admin: 07/18/24 09:57 Dose: 1 tab Documented By: Admin: 07/16/24 20:52 Dose: 1 tab Documented By: Admin: 07/16/24 16:40 Dose: 1 tab Documented By: Admin: 07/16/24 06:34 Dose: 1 tab Documented By: Admin: 07/15/24 13:27 Dose: 1 tab Documented By: Admin: 07/15/24 08:26 Dose: 1 tab Documented By: Admin: 07/14/24 17:19 Dose: 1 tab Documented By: TYRESE Albuterol (Albuterol 2.5 Mg/3 Ml Neb (Adult)) 2.5 mg INH [id number] PRN PRN Reason: Dyspnea Bisacodyl (Bisacodyl 10 Mg Supp) 10 mg OK DAILY PRN PRN Reason: Constipation Calcium Carbonate (Calcium Carbonate 500 Mg Tab) 1,000 mg PO Q4HR PRN PRN Reason: Dyspepsia Enoxaparin Sodium (Enoxaparin 40 Mg/0.4 Ml Syringe) 40 mg SUBCUT DAILY [facility] Last Admin: 07/19/24 08:29 Dose: 40 mg Documented By: Admin: 07/18/24 09:57 Dose: 40 mg Documented By: Admin: 07/17/24 09:24 Dose: 40 mg Documented By: Admin: 07/16/24 08:51 Dose: 40 mg Documented By: LOIDA Gabapentin (Gabapentin 300 Mg Capsule) 300 mg PO TID [facility] Last Admin: 07/19/24 08:29 Dose: 300 mg Documented By: Admin: 07/18/24 19:59 Dose: 300 mg Documented By: Admin: 07/18/24 14:32 Dose: 300 mg Documented By: Admin: 07/18/24 09:57 Dose: 300 mg Documented By: Admin: 07/17/24 21:21 Dose: 300 mg Documented By: Admin: 07/17/24 14:39 Dose: 300 mg Documented By: Admin: 07/17/24 09:24 Dose: 300 mg Documented By: Admin: 07/16/24 20:30 Dose: 300 mg Documented By: Admin: 07/16/24 14:43 Dose: 300 mg Documented By: LOIDA Hydromorphone HCl (Hydromorphone 0.5 Mg Inj) 0.5 mg IV Q15MIN PRN PRN Reason: Pain, Last Admin: 07/13/24 18:54 Dose: 0.5 mg Documented By: Admin: 07/13/24 17:36 Dose: 0.5 mg Documented By: Hydromorphone HCl (Hydromorphone 0.5 Mg Inj) 0.5 mg IV Q2H PRN PRN Reason: Pain, Severe (7-10) Last Admin: 07/14/24 00:13 Dose: 0.5 mg Documented By: VERONICA Hydromorphone HCl (Hydromorphone 1 Mg Inj) 1 mg IV Q2H PRN PRN Reason: Pain, Severe (7-10) Last Admin: 07/18/24 06:13 Dose: 1 mg Documented By: Admin: 07/17/24 21:19 Dose: 1 mg Documented By: Admin: 07/17/24 16:36 Dose: 1 mg Documented By: Admin: 07/17/24 06:56 Dose: 1 mg Documented By: Admin: 07/16/24 22:25 Dose: 1 mg Documented By: Admin: 07/16/24 18:12 Dose: 1 mg Documented By: Admin: 07/15/24 21:00 Dose: 1 mg Documented By: Admin: 07/15/24 14:57 Dose: 1 mg Documented By: Admin: 07/15/24 02:34 Dose: 1 mg Documented By: MARIA DEL CARMEN Admin: 07/14/24 18:48 Dose: 1 mg Documented By: Admin: 07/14/24 14:12 Dose: 1 mg Documented By: TYRESE Sodium Chloride (Normal Saline 0.9%) 1,000 mls @ 1,000 mls/hr IV BOLUS ONE Stop: 07/13/24 18:07 Last Infusion: 07/13/24 18:54 Dose: Infused Documented By: Admin: 07/13/24 17:36 Dose: 1,000 mls/hr Documented By: Ceftriaxone Sodium 2,000 mg/ (Sodium Chloride) 100 mls @ 200 mls/hr IV NOW ONE Stop: 07/13/24 17:09 Last Infusion: 07/13/24 18:15 Dose: Infused Documented By: Admin: 07/13/24 17:36 Dose: 200 mls/hr Documented By: Vancomycin HCl (Vancomycin) 1,000 mg in 200 mls @ 200 mls/hr IV NOW ONE Stop: 07/13/24 18:52 Last Infusion: 07/13/24 20:06 Dose: Infused Documented By: Admin: 07/13/24 18:52 Dose: 200 mls/hr Documented By: Dextrose/Sodium Chloride (Dextrose 5%-0.9% Ns) 1,000 mls @ 100 mls/hr IV CONT KAMRYN Last Admin: 07/14/24 06:23 Dose: 100 mls/hr Documented By: Infusion: 07/14/24 06:23 Dose: Infused Documented By: Admin: 07/13/24 21:48 Dose: 100 mls/hr Documented By: DONOVAN Ceftriaxone Sodium 2,000 mg/ (Sodium Chloride) 100 mls @ 200 mls/hr IV Q24H KAMRYN Last Infusion: 07/16/24 02:45 Dose: Infused Documented By: Admin: 07/15/24 21:24 Dose: 200 mls/hr Documented By: Infusion: 07/14/24 22:24 Dose: Infused Documented By: MARIA DEL CARMEN Admin: 07/14/24 20:09 Dose: 200 mls/hr Documented By: MARIA DEL CARMEN Admin: 07/13/24 22:02 Dose: Not Given Documented By: DONOVAN Vancomycin HCl 1,500 mg/ (Sodium Chloride) 100 mls @ 100 mls/hr IV Q12H KAMRYN Last Admin: 07/13/24 21:08 Dose: Not Given Documented By: DNOOVAN Vancomycin HCl (Vancomycin) 1,000 mg in 200 mls @ 200 mls/hr IV Q24H KAMRYN Vancomycin HCl (Vancomycin) 1,000 mg in 200 mls @ 200 mls/hr IV Q12H KAMRYN Last Infusion: 07/15/24 07:57 Dose: Infused Documented By: Admin: 07/15/24 06:57 Dose: 200 mls/hr Documented By: MARIA DEL CARMEN Infusion: 07/14/24 22:24 Dose: Infused Documented By: MARIA DEL CARMEN Admin: 07/14/24 18:48 Dose: 200 mls/hr Documented By: Infusion: 07/14/24 07:52 Dose: Infused Documented By: Admin: 07/14/24 06:52 Dose: 200 mls/hr Documented By: VERONICA Vancomycin HCl (Vancomycin) 1,250 mg in 250 mls @ 250 mls/hr IV Q12H KAMRYN Vancomycin HCl/Dextrose (Vancomycin) 1,500 mg in 300 mls @ 200 mls/hr IV Q12H [facility] Last Infusion: 07/19/24 08:07 Dose: Infused Documented By: Admin: 07/19/24 06:37 Dose: 200 mls/hr Documented By: Infusion: 07/19/24 00:07 Dose: Infused Documented By: Admin: 07/18/24 18:55 Dose: 200 mls/hr Documented By: Infusion: 07/18/24 08:03 Dose: Infused Documented By: Admin: 07/18/24 06:33 Dose: 200 mls/hr Documented By: Infusion: 07/17/24 23:03 Dose: Infused Documented By: Admin: 07/17/24 18:48 Dose: 200 mls/hr Documented By: Infusion: 07/17/24 08:30 Dose: Infused Documented By: Admin: 07/17/24 06:50 Dose: 200 mls/hr Documented By: Infusion: 07/16/24 23:24 Dose: Infused Documented By: Admin: 07/16/24 18:09 Dose: 200 mls/hr Documented By: Infusion: 07/16/24 08:52 Dose: Infused Documented By: Admin: 07/16/24 06:28 Dose: 200 mls/hr Documented By: Infusion: 07/15/24 21:29 Dose: Infused Documented By: Admin: 07/15/24 19:28 Dose: 200 mls/hr Documented By: TYRESE Cefepime HCl 2 gm/ Sodium (Chloride) 100 mls @ 200 mls/hr IV Q12H [facility] Last Infusion: 07/19/24 08:59 Dose: Infused Documented By: Admin: 07/19/24 08:29 Dose: 200 mls/hr Documented By: Infusion: 07/19/24 00:07 Dose: Infused Documented By: Admin: 07/18/24 21:44 Dose: 200 mls/hr Documented By: Infusion: 07/18/24 10:26 Dose: Infused Documented By: Admin: 07/18/24 09:56 Dose: 200 mls/hr Documented By: Infusion: 07/17/24 23:21 Dose: Infused Documented By: Admin: 07/17/24 22:51 Dose: 200 mls/hr Documented By: Infusion: 07/17/24 15:01 Dose: Infused Documented By: Admin: 07/17/24 09:25 Dose: 200 mls/hr Documented By: Infusion: 07/16/24 21:00 Dose: Infused Documented By: Admin: 07/16/24 20:28 Dose: 200 mls/hr Documented By: ABHIJEET Melatonin (Melatonin 3 Mg Tablet) 9 mg PO BEDTIME PRN PRN Reason: insomnia Last Admin: 07/18/24 19:58 Dose: 9 mg Documented By: ABHIJEET Naloxone HCl (Naloxone 0.4 Mg/Ml Vial) 0.2 mg IV Q2MIN PRN PRN Reason: Opiate Reversal Nicotine (Nicotine 14 Patch) 14 mg TOP DAILY [facility] Last Admin: 07/19/24 08:29 Dose: 14 mg Documented By: Admin: 07/18/24 09:56 Dose: 14 mg Documented By: Admin: 07/17/24 09:24 Dose: 14 mg Documented By: Admin: 07/16/24 08:48 Dose: 14 mg Documented By: Admin: 07/15/24 04:35 Dose: Not Given Documented By: MARIA DEL CARMEN Nicotine (Nicotine 14 Patch) 14 mg TOP NOW ONE Stop: 07/14/24 20:07 Last Admin: 07/14/24 20:17 Dose: 14 mg Documented By: MARIA DEL CARMEN Ondansetron HCl (Ondansetron 4 Mg/2 Ml Inj) 4 mg IV Q4HR [facility] Last Admin: 07/14/24 03:03 Dose: Not Given Documented By: Admin: 07/13/24 23:32 Dose: Not Given Documented By: VERONICA Ondansetron HCl (Ondansetron 4 Mg/2 Ml Inj) 4 mg IV Q4HR PRN PRN Reason: Nausea Potassium Chloride (Potassium Chloride 20 Meq Tab) 40 meq PO NOW ONE Stop: 07/15/24 09:16 Last Admin: 07/15/24 10:48 Dose: 40 meq Documented By: TYRESE Sennosides (Sennosides 8.6 Mg Tablet) 17.2 mg PO BEDTIME [facility] Last Admin: 07/18/24 19:58 Dose: 17.2 mg Documented By: Admin: 07/17/24 21:00 Dose: 17.2 mg Documented By: Admin: 07/16/24 20:30 Dose: 17.2 mg Documented By: Admin: 07/15/24 20:59 Dose: 17.2 mg Documented By: Admin: 07/14/24 20:09 Dose: 17.2 mg Documented By: MARIA DEL CARMEN Admin: 07/13/24 23:32 Dose: Not Given Documented By: VERONICA Vancomycin HCl (Vancomycin Per Pharmacy) 1 request [facility] NOW ONE Stop: 07/13/24 17:11 Last Admin: 07/13/24 17:58 Dose: Not Given Documented By: Vancomycin HCl (Vancomycin Trough) 1 request [facility] 0630 ONE Stop: 07/15/24 06:31 Last Admin: 07/15/24 06:57 Dose: 1 request Documented By: MARIA DEL CARMEN Vancomycin HCl (Vancomycin Trough) 1 request MIS 629 [facility] Stop: 07/17/24 06:31 Last Admin: 07/17/24 07:02 Dose: Not Given Documented By: ABHIJEET Vancomycin HCl (Vancomycin Trough) 1 request MIS 629 [facility] Stop: 07/19/24 06:31 Last Admin: 07/19/24 06:58 Dose: Not Given Documented By: ABHIJEET Vital Signs Vital signs: Vital Signs - 8 hr 07/13/24 16:51 07/13/24 17:10 07/13/24 17:11 Temperature 100.3 F H Pulse Rate 130 H 130 H Respiratory Rate 16 20 Blood Pressure 126/97 H 183/106 H Pulse Oximetry 99 99 Oxygen Delivery Method Room Air 07/13/24 17:11 07/13/24 17:30 07/13/24 17:30 Temperature Pulse Rate 129 H 124 H Respiratory Rate Blood Pressure 191/116 H Pulse Oximetry 99 99 Oxygen Delivery Method 07/13/24 18:07 07/13/24 18:07 07/13/24 18:30 Temperature Pulse Rate 119 H 110 H Respiratory Rate 20 21 Blood Pressure 169/89 H Pulse Oximetry 98 99 Oxygen Delivery Method 07/13/24 19:00 07/13/24 19:00 Temperature Pulse Rate 123 H Respiratory Rate Blood Pressure 163/90 H Pulse Oximetry 97 Oxygen Delivery Method <Steffi Mann MD - Last Filed: 07/13/24 19:43> Orders Ordered: Discontinued Medications Acetaminophen (Acetaminophen 325 Mg Tablet) 650 mg PO Q6H PRN PRN Reason: Fever/Mild Pain (1-3) Last Admin: 07/16/24 16:41 Dose: 650 mg Documented By: Admin: 07/15/24 21:48 Dose: 650 mg Documented By: Admin: 07/14/24 16:40 Dose: 650 mg Documented By: Admin: 07/14/24 05:29 Dose: 650 mg Documented By: VERONICA Hydrocodone Bitart/Acetaminophen (Hydrocodone/Acet 5/325 Tablet) 1 tab PO Q4H PRN PRN Reason: pain Last Admin: 07/19/24 08:29 Dose: 1 tab Documented By: Admin: 07/18/24 19:58 Dose: 1 tab Documented By: Admin: 07/18/24 14:32 Dose: 1 tab Documented By: Admin: 07/18/24 09:57 Dose: 1 tab Documented By: Admin: 07/16/24 20:52 Dose: 1 tab Documented By: Admin: 07/16/24 16:40 Dose: 1 tab Documented By: Admin: 07/16/24 06:34 Dose: 1 tab Documented By: Admin: 07/15/24 13:27 Dose: 1 tab Documented By: Admin: 07/15/24 08:26 Dose: 1 tab Documented By: Admin: 07/14/24 17:19 Dose: 1 tab Documented By: TYRESE Albuterol (Albuterol 2.5 Mg/3 Ml Neb (Adult)) 2.5 mg INH [id number] PRN PRN Reason: Dyspnea Bisacodyl (Bisacodyl 10 Mg Supp) 10 mg OK DAILY PRN PRN Reason: Constipation Calcium Carbonate (Calcium Carbonate 500 Mg Tab) 1,000 mg PO Q4HR PRN PRN Reason: Dyspepsia Enoxaparin Sodium (Enoxaparin 40 Mg/0.4 Ml Syringe) 40 mg SUBCUT DAILY [facility] Last Admin: 07/19/24 08:29 Dose: 40 mg Documented By: Admin: 07/18/24 09:57 Dose: 40 mg Documented By: Admin: 07/17/24 09:24 Dose: 40 mg Documented By: Admin: 07/16/24 08:51 Dose: 40 mg Documented By: LOIDA Gabapentin (Gabapentin 300 Mg Capsule) 300 mg PO TID [facility] Last Admin: 07/19/24 08:29 Dose: 300 mg Documented By: Admin: 07/18/24 19:59 Dose: 300 mg Documented By: Admin: 07/18/24 14:32 Dose: 300 mg Documented By: Admin: 07/18/24 09:57 Dose: 300 mg Documented By: Admin: 07/17/24 21:21 Dose: 300 mg Documented By: Admin: 07/17/24 14:39 Dose: 300 mg Documented By: Admin: 07/17/24 09:24 Dose: 300 mg Documented By: Admin: 07/16/24 20:30 Dose: 300 mg Documented By: Admin: 07/16/24 14:43 Dose: 300 mg Documented By: LOIDA Hydromorphone HCl (Hydromorphone 0.5 Mg Inj) 0.5 mg IV Q15MIN PRN PRN Reason: Pain, Last Admin: 07/13/24 18:54 Dose: 0.5 mg Documented By: Admin: 07/13/24 17:36 Dose: 0.5 mg Documented By: CIARA Hydromorphone HCl (Hydromorphone 0.5 Mg Inj) 0.5 mg IV Q2H PRN PRN Reason: Pain, Severe (7-10) Last Admin: 07/14/24 00:13 Dose: 0.5 mg Documented By: VERONICA Hydromorphone HCl (Hydromorphone 1 Mg Inj) 1 mg IV Q2H PRN PRN Reason: Pain, Severe (7-10) Last Admin: 07/18/24 06:13 Dose: 1 mg Documented By: Admin: 07/17/24 21:19 Dose: 1 mg Documented By: Admin: 07/17/24 16:36 Dose: 1 mg Documented By: Admin: 07/17/24 06:56 Dose: 1 mg Documented By: Admin: 07/16/24 22:25 Dose: 1 mg Documented By: Admin: 07/16/24 18:12 Dose: 1 mg Documented By: Admin: 07/15/24 21:00 Dose: 1 mg Documented By: Admin: 07/15/24 14:57 Dose: 1 mg Documented By: Admin: 07/15/24 02:34 Dose: 1 mg Documented By: MARIA DEL CARMEN Admin: 07/14/24 18:48 Dose: 1 mg Documented By: Admin: 07/14/24 14:12 Dose: 1 mg Documented By: TYRESE Sodium Chloride (Normal Saline 0.9%) 1,000 mls @ 1,000 mls/hr IV BOLUS ONE Stop: 07/13/24 18:07 Last Infusion: 07/13/24 18:54 Dose: Infused Documented By: Admin: 07/13/24 17:36 Dose: 1,000 mls/hr Documented By: Ceftriaxone Sodium 2,000 mg/ (Sodium Chloride) 100 mls @ 200 mls/hr IV NOW ONE Stop: 07/13/24 17:09 Last Infusion: 07/13/24 18:15 Dose: Infused Documented By: Admin: 07/13/24 17:36 Dose: 200 mls/hr Documented By: Vancomycin HCl (Vancomycin) 1,000 mg in 200 mls @ 200 mls/hr IV NOW ONE Stop: 07/13/24 18:52 Last Infusion: 07/13/24 20:06 Dose: Infused Documented By: Admin: 07/13/24 18:52 Dose: 200 mls/hr Documented By: Dextrose/Sodium Chloride (Dextrose 5%-0.9% Ns) 1,000 mls @ 100 mls/hr IV CONT KAMRYN Last Admin: 07/14/24 06:23 Dose: 100 mls/hr Documented By: Infusion: 07/14/24 06:23 Dose: Infused Documented By: Admin: 07/13/24 21:48 Dose: 100 mls/hr Documented By: DONOVAN Ceftriaxone Sodium 2,000 mg/ (Sodium Chloride) 100 mls @ 200 mls/hr IV Q24H KAMRYN Last Infusion: 07/16/24 02:45 Dose: Infused Documented By: Admin: 07/15/24 21:24 Dose: 200 mls/hr Documented By: Infusion: 07/14/24 22:24 Dose: Infused Documented By: MARIA DEL CARMEN Admin: 07/14/24 20:09 Dose: 200 mls/hr Documented By: MARIA DEL CARMEN Admin: 07/13/24 22:02 Dose: Not Given Documented By: DONOVAN Vancomycin HCl 1,500 mg/ (Sodium Chloride) 100 mls @ 100 mls/hr IV Q12H KAMRYN Last Admin: 07/13/24 21:08 Dose: Not Given Documented By: DONOVAN Vancomycin HCl (Vancomycin) 1,000 mg in 200 mls @ 200 mls/hr IV Q24H KAMRYN Vancomycin HCl (Vancomycin) 1,000 mg in 200 mls @ 200 mls/hr IV Q12H KAMRYN Last Infusion: 07/15/24 07:57 Dose: Infused Documented By: Admin: 07/15/24 06:57 Dose: 200 mls/hr Documented By: MARIA DEL CARMEN Infusion: 07/14/24 22:24 Dose: Infused Documented By: MARIA DEL CARMEN Admin: 07/14/24 18:48 Dose: 200 mls/hr Documented By: Infusion: 07/14/24 07:52 Dose: Infused Documented By: Admin: 07/14/24 06:52 Dose: 200 mls/hr Documented By: VERONICA Vancomycin HCl (Vancomycin) 1,250 mg in 250 mls @ 250 mls/hr IV Q12H KAMRYN Vancomycin HCl/Dextrose (Vancomycin) 1,500 mg in 300 mls @ 200 mls/hr IV Q12H KAMRYN Last Infusion: 07/19/24 08:07 Dose: Infused Documented By: Admin: 07/19/24 06:37 Dose: 200 mls/hr Documented By: Infusion: 07/19/24 00:07 Dose: Infused Documented By: Admin: 07/18/24 18:55 Dose: 200 mls/hr Documented By: Infusion: 07/18/24 08:03 Dose: Infused Documented By: Admin: 07/18/24 06:33 Dose: 200 mls/hr Documented By: Infusion: 07/17/24 23:03 Dose: Infused Documented By: Admin: 07/17/24 18:48 Dose: 200 mls/hr Documented By: Infusion: 07/17/24 08:30 Dose: Infused Documented By: Admin: 07/17/24 06:50 Dose: 200 mls/hr Documented By: Infusion: 07/16/24 23:24 Dose: Infused Documented By: Admin: 07/16/24 18:09 Dose: 200 mls/hr Documented By: Infusion: 07/16/24 08:52 Dose: Infused Documented By: Admin: 07/16/24 06:28 Dose: 200 mls/hr Documented By: Infusion: 07/15/24 21:29 Dose: Infused Documented By: Admin: 07/15/24 19:28 Dose: 200 mls/hr Documented By: TYRESE Cefepime HCl 2 gm/ Sodium (Chloride) 100 mls @ 200 mls/hr IV Q12H KAMRYN Last Infusion: 07/19/24 08:59 Dose: Infused Documented By: Admin: 07/19/24 08:29 Dose: 200 mls/hr Documented By: Infusion: 07/19/24 00:07 Dose: Infused Documented By: Admin: 07/18/24 21:44 Dose: 200 mls/hr Documented By: Infusion: 07/18/24 10:26 Dose: Infused Documented By: Admin: 07/18/24 09:56 Dose: 200 mls/hr Documented By: Infusion: 07/17/24 23:21 Dose: Infused Documented By: Admin: 07/17/24 22:51 Dose: 200 mls/hr Documented By: Infusion: 07/17/24 15:01 Dose: Infused Documented By: Admin: 07/17/24 09:25 Dose: 200 mls/hr Documented By: Infusion: 07/16/24 21:00 Dose: Infused Documented By: Admin: 07/16/24 20:28 Dose: 200 mls/hr Documented By: ABHIJEET Melatonin (Melatonin 3 Mg Tablet) 9 mg PO BEDTIME PRN PRN Reason: insomnia Last Admin: 07/18/24 19:58 Dose: 9 mg Documented By: ABHIJEET Naloxone HCl (Naloxone 0.4 Mg/Ml Vial) 0.2 mg IV Q2MIN PRN PRN Reason: Opiate Reversal Nicotine (Nicotine 14 Patch) 14 mg TOP DAILY [facility] Last Admin: 07/19/24 08:29 Dose: 14 mg Documented By: Admin: 07/18/24 09:56 Dose: 14 mg Documented By: Admin: 07/17/24 09:24 Dose: 14 mg Documented By: Admin: 07/16/24 08:48 Dose: 14 mg Documented By: Admin: 07/15/24 04:35 Dose: Not Given Documented By: MARIA DEL CARMEN Nicotine (Nicotine 14 Patch) 14 mg TOP NOW ONE Stop: 07/14/24 20:07 Last Admin: 07/14/24 20:17 Dose: 14 mg Documented By: MARIA DEL CARMEN Ondansetron HCl (Ondansetron 4 Mg/2 Ml Inj) 4 mg IV Q4HR [facility] Last Admin: 07/14/24 03:03 Dose: Not Given Documented By: Admin: 07/13/24 23:32 Dose: Not Given Documented By: VERONICA Ondansetron HCl (Ondansetron 4 Mg/2 Ml Inj) 4 mg IV Q4HR PRN PRN Reason: Nausea Potassium Chloride (Potassium Chloride 20 Meq Tab) 40 meq PO NOW ONE Stop: 07/15/24 09:16 Last Admin: 07/15/24 10:48 Dose: 40 meq Documented By: TYRESE Sennosides (Sennosides 8.6 Mg Tablet) 17.2 mg PO BEDTIME [facility] Last Admin: 07/18/24 19:58 Dose: 17.2 mg Documented By: Admin: 07/17/24 21:00 Dose: 17.2 mg Documented By: Admin: 07/16/24 20:30 Dose: 17.2 mg Documented By: Admin: 07/15/24 20:59 Dose: 17.2 mg Documented By: Admin: 07/14/24 20:09 Dose: 17.2 mg Documented By: MARIA DEL CARMEN Admin: 07/13/24 23:32 Dose: Not Given Documented By: VERONICA Vancomycin HCl (Vancomycin Per Pharmacy) 1 request MISC NOW ONE Stop: 07/13/24 17:11 Last Admin: 07/13/24 17:58 Dose: Not Given Documented By: Vancomycin HCl (Vancomycin Trough) 1 request MIS 0630 ONE Stop: 07/15/24 06:31 Last Admin: 07/15/24 06:57 Dose: 1 request Documented By: MARIA DEL CARMEN Vancomycin HCl (Vancomycin Trough) 1 request MIS 0630 [facility] Stop: 07/17/24 06:31 Last Admin: 07/17/24 07:02 Dose: Not Given Documented By: ABHIJEET Vancomycin HCl (Vancomycin Trough) 1 request MIS 0630 [facility] Stop: 07/19/24 06:31 Last Admin: 07/19/24 06:58 Dose: Not Given Documented By: ABHIJEET Vital Signs Vital signs: Vital Signs - 8 hr 07/13/24 16:51 07/13/24 17:10 07/13/24 17:11 Temperature 100.3 F H Pulse Rate 130 H 130 H Respiratory Rate 16 20 Blood Pressure 126/97 H 183/106 H Pulse Oximetry 99 99 Oxygen Delivery Method Room Air 07/13/24 17:11 07/13/24 17:30 07/13/24 17:30 Temperature Pulse Rate 129 H 124 H Respiratory Rate Blood Pressure 191/116 H Pulse Oximetry 99 99 Oxygen Delivery Method 07/13/24 18:07 07/13/24 18:07 07/13/24 18:30 Temperature Pulse Rate 119 H 110 H Respiratory Rate 20 21 Blood Pressure 169/89 H Pulse Oximetry 98 99 Oxygen Delivery Method 07/13/24 19:00 07/13/24 19:00 Temperature Pulse Rate 123 H Respiratory Rate Blood Pressure 163/90 H Pulse Oximetry 97 Oxygen Delivery Method MDM - Extremity (Nontraumatic) <Radha Rubio MD - Last Filed: 07/30/24 18:07> Lab Data 07/17/24 06:38 07/19/24 06:34 Labs: Lab Results 07/13/24 07/13/24 07/13/24 Range/Units 17:15 19:20 23:50 WBC 11.5 H (4.5-11.0) X10^3/uL RBC 4.31 L (4.5-5.9) X10^6/uL Hgb 12.8 L (13.5-17.5) g/dL Hct 38.0 L (41-53) % MCV 88.3 (80-100) fL MCH 29.8 (26-34) PG MCHC 33.8 (30-36) % RDW 15.4 H (11.6-14.8) % Plt Count 304 (150-400) X10^3/uL Neut % (Auto) 84.7 H (50-75) % Lymph % (Auto) 7.3 L (25-40) % [place] % (Auto) 6.6 (3-14) % Eos % (Auto) 0.8 L (2-4) % Baso % (Auto) 0.6 (0-2) % Neut # (Auto) 9700 H (0256-8605) /uL Lymph # (Auto) 800 L (3667-9330) /uL [place] # (Auto) 800 (0-900) /uL Eos # (Auto) 100 (0-450) /uL Baso # (Auto) 100 (0-100) /uL Sodium 134 L (137-145) mmol/L Potassium 3.7 (3.4-5.1) mmol/L Chloride 101 (98-107) mmol/L Carbon Dioxide 23 (22-32) mmol/L BUN 15 (9-20) mg/dL Creatinine 0.98 (0.66-1.25) mg/dL Estimated GFR > 60 (>60) mL/min BUN/Creatinine Ratio 15.3 (6-22) Glucose 136 H (80-110) mg/dL Lactate 2.1 0.7 (0.7-2.1) mmol/L Calcium 8.8 (8.4-10.2) mg/dL Magnesium (1.6-2.3) mg/dL Total Bilirubin 0.7 (0.2-1.3) mg/dL AST 37 (17-59) IU/L ALT 35 (<50) IU/L Alkaline Phosphatase 126 (38-126) U/L Total Protein 8.0 (6.3-8.2) g/dL Albumin 4.5 (3.5-5.0) g/dL Globulin 3.5 (1.7-4.1) g/dL Albumin/Globulin Ratio 1.3 (1.0-2.8) Procalcitonin 0.087 (<0.5) ng/mL Urine Color Yellow Urine Appearance Clear Urine pH 7.0 (4.5-8.0) Ur Specific [place] 1.015 (1.000-1.035) Urine Protein Negative (Negative) Urine Glucose (UA) Negative (Negative) g/dL Urine Ketones Negative (NEGATIVE) Urine Occult Blood Negative (Negative) Urine Nitrate Negative (Negative) Urine Bilirubin Negative (NEGATIVE) Urine Urobilinogen 0.2 (0.2) E.U./dL Ur Leukocyte Esterase Negative (NEGATIVE) Urine RBC None seen (0-5/HPF) Urine WBC 0-1/hpf (0-5/HPF) Ur Squamous Epith Cells 5-10 /hpf H (0-5/HPF) Urine Bacteria Moderate (10-30) H (None) Ur Culture Indicated? Cult not indicated Vol Urine Centrifuged 10ml (spun) Nasal Screen MRSA (PCR) (Not Detect) Vancomycin Trough (10-20) ug/mL U Opiates 300ng/mL cut Negative (Negative) Ur Oxycodone Screen Negative (Negative) Urine Methadone Screen Negative (Negative) Ur Barbiturates Screen Negative (Negative) U Tricyclic Antidepress Negative (Negative) Ur Phencyclidine Scrn Negative (Negative) Ur Amphetamines Screen Positive H (Negative) U Methamphetamines Scrn Positive H (Negative) Ur MDMA Scrn (Ecstasy) Negative (Negative) U Benzodiazepines Scrn Negative (Negative) Urine Cocaine Screen Negative (Negative) U Marijuana (THC) Screen Negative (Negative) Urine Specific [place] (Normal) Ur Creatinine (Normal) 07/13/24 07/14/24 07/15/24 Range/Units 23:50 00:10 06:17 WBC 14.4 H (4.5-11.0) X10^3/uL RBC 3.88 L (4.5-5.9) X10^6/uL Hgb 11.5 L (13.5-17.5) g/dL Hct 34.0 L (41-53) % MCV 87.7 (80-100) fL MCH 29.6 (26-34) PG MCHC 33.8 (30-36) % RDW 15.5 H (11.6-14.8) % Plt Count 240 (150-400) X10^3/uL Neut % (Auto) 85.1 H (50-75) % Lymph % (Auto) 6.5 L (25-40) % [place] % (Auto) 5.7 (3-14) % Eos % (Auto) 2.3 (2-4) % Baso % (Auto) 0.4 (0-2) % Neut # (Auto) 99950 H (8722-9378) /uL Lymph # (Auto) 900 L (0520-5705) /uL [place] # (Auto) 800 (0-900) /uL Eos # (Auto) 300 (0-450) /uL Baso # (Auto) 100 (0-100) /uL Sodium 131 L (137-145) mmol/L Potassium 3.5 (3.4-5.1) mmol/L Chloride 104 (98-107) mmol/L Carbon Dioxide 22 (22-32) mmol/L BUN 13 (9-20) mg/dL Creatinine 0.80 (0.66-1.25) mg/dL Estimated GFR > 60 (>60) mL/min BUN/Creatinine Ratio 16.3 (6-22) Glucose 94 (80-110) mg/dL Lactate (0.7-2.1) mmol/L Calcium 7.7 L (8.4-10.2) mg/dL Magnesium 1.9 (1.6-2.3) mg/dL Total Bilirubin (0.2-1.3) mg/dL AST (17-59) IU/L ALT (<50) IU/L Alkaline Phosphatase (38-126) U/L Total Protein (6.3-8.2) g/dL Albumin (3.5-5.0) g/dL Globulin (1.7-4.1) g/dL Albumin/Globulin Ratio (1.0-2.8) Procalcitonin (<0.5) ng/mL Urine Color Urine Appearance Urine pH Normal (4.5-8.0) Ur Specific [place] (1.000-1.035) Urine Protein (Negative) Urine Glucose (UA) (Negative) g/dL Urine Ketones (NEGATIVE) Urine Occult Blood (Negative) Urine Nitrate (Negative) Urine Bilirubin (NEGATIVE) Urine Urobilinogen (0.2) E.U./dL Ur Leukocyte Esterase (NEGATIVE) Urine RBC (0-5/HPF) Urine WBC (0-5/HPF) Ur Squamous Epith Cells (0-5/HPF) Urine Bacteria (None) Ur Culture Indicated? Vol Urine Centrifuged Nasal Screen MRSA (PCR) Not detected (Not Detect) Vancomycin Trough 8.8 L (10-20) ug/mL U Opiates 300ng/mL cut (Negative) Ur Oxycodone Screen (Negative) Urine Methadone Screen (Negative) Ur Barbiturates Screen (Negative) U Tricyclic Antidepress (Negative) Ur Phencyclidine Scrn (Negative) Ur Amphetamines Screen (Negative) U Methamphetamines Scrn (Negative) Ur MDMA Scrn (Ecstasy) (Negative) U Benzodiazepines Scrn (Negative) Urine Cocaine Screen (Negative) U Marijuana (THC) Screen (Negative) Urine Specific [place] Normal (Normal) Ur Creatinine Normal (Normal) MDM Narrative Medical decision making narrative: CC: Left foot and ankle pain, tachycardia fever Complicating co-morbidities: He has a house arrest band around his left ankle that is seems to be causing the majority of his symptoms Data collected from: patient Social determinants of health that may influence the patients condition: Currently under house arrest Medical records reviewed: Discharge summary from November of 2020 is reviewed Differential considered: DVT, chronic lower extremity edema worsened by leg band, cellulitis secondary to edema and skin breakdown, sepsis, viral syndrome Exam documented above, pertinent findings include: Patient complains of cough however lungs are relatively clear, he is tachycardic, left lower extremity is swollen dramatically swollen pass the leg bag that has now been removed with skin breakdown and erythema and warmth of the foot to the level of the leg band DR. Mann -care of patient is signed out to me by daytime physician. Independent review of chart and patient performed by myself. Patient is resting comfortably in ED bed on his cell phone. Still tachycardic, but patient denies palpitations, chest pain, shortness of breath. He was currently receiving vancomycin infusion. Repeat exam of the ankle shows warmth generalized over the lower extremity particularly over the ankle joint. Palpable DP pulses. Still pending urinalysis and drug screen. Patient admitted for further treatment. <Steffi Mann MD - Last Filed: 07/13/24 19:43> Lab Data Labs: Lab Results 07/13/24 07/13/24 07/13/24 Range/Units 17:15 19:20 23:50 WBC 11.5 H (4.5-11.0) X10^3/uL RBC 4.31 L (4.5-5.9) X10^6/uL Hgb 12.8 L (13.5-17.5) g/dL Hct 38.0 L (41-53) % MCV 88.3 (80-100) fL MCH 29.8 (26-34) PG MCHC 33.8 (30-36) % RDW 15.4 H (11.6-14.8) % Plt Count 304 (150-400) X10^3/uL Neut % (Auto) 84.7 H (50-75) % Lymph % (Auto) 7.3 L (25-40) % [place] % (Auto) 6.6 (3-14) % Eos % (Auto) 0.8 L (2-4) % Baso % (Auto) 0.6 (0-2) % Neut # (Auto) 9700 H (6772-7144) /uL Lymph # (Auto) 800 L (8149-3389) /uL [place] # (Auto) 800 (0-900) /uL Eos # (Auto) 100 (0-450) /uL Baso # (Auto) 100 (0-100) /uL Sodium 134 L (137-145) mmol/L Potassium 3.7 (3.4-5.1) mmol/L Chloride 101 (98-107) mmol/L Carbon Dioxide 23 (22-32) mmol/L BUN 15 (9-20) mg/dL Creatinine 0.98 (0.66-1.25) mg/dL Estimated GFR > 60 (>60) mL/min BUN/Creatinine Ratio 15.3 (6-22) Glucose 136 H (80-110) mg/dL Lactate 2.1 0.7 (0.7-2.1) mmol/L Calcium 8.8 (8.4-10.2) mg/dL Magnesium (1.6-2.3) mg/dL Total Bilirubin 0.7 (0.2-1.3) mg/dL AST 37 (17-59) IU/L ALT 35 (<50) IU/L Alkaline Phosphatase 126 (38-126) U/L Total Protein 8.0 (6.3-8.2) g/dL Albumin 4.5 (3.5-5.0) g/dL Globulin 3.5 (1.7-4.1) g/dL Albumin/Globulin Ratio 1.3 (1.0-2.8) Procalcitonin 0.087 (<0.5) ng/mL Urine Color Yellow Urine Appearance Clear Urine pH 7.0 (4.5-8.0) Ur Specific [place] 1.015 (1.000-1.035) Urine Protein Negative (Negative) Urine Glucose (UA) Negative (Negative) g/dL Urine Ketones Negative (NEGATIVE) Urine Occult Blood Negative (Negative) Urine Nitrate Negative (Negative) Urine Bilirubin Negative (NEGATIVE) Urine Urobilinogen 0.2 (0.2) E.U./dL Ur Leukocyte Esterase Negative (NEGATIVE) Urine RBC None seen (0-5/HPF) Urine WBC 0-1/hpf (0-5/HPF) Ur Squamous Epith Cells 5-10 /hpf H (0-5/HPF) Urine Bacteria Moderate (10-30) H (None) Ur Culture Indicated? Cult not indicated Vol Urine Centrifuged 10ml (spun) Nasal Screen MRSA (PCR) (Not Detect) Vancomycin Trough (10-20) ug/mL U Opiates 300ng/mL cut Negative (Negative) Ur Oxycodone Screen Negative (Negative) Urine Methadone Screen Negative (Negative) Ur Barbiturates Screen Negative (Negative) U Tricyclic Antidepress Negative (Negative) Ur Phencyclidine Scrn Negative (Negative) Ur Amphetamines Screen Positive H (Negative) U Methamphetamines Scrn Positive H (Negative) Ur MDMA Scrn (Ecstasy) Negative (Negative) U Benzodiazepines Scrn Negative (Negative) Urine Cocaine Screen Negative (Negative) U Marijuana (THC) Screen Negative (Negative) Urine Specific [place] (Normal) Ur Creatinine (Normal) 07/13/24 07/14/24 07/15/24 Range/Units 23:50 00:10 06:17 WBC 14.4 H (4.5-11.0) X10^3/uL RBC 3.88 L (4.5-5.9) X10^6/uL Hgb 11.5 L (13.5-17.5) g/dL Hct 34.0 L (41-53) % MCV 87.7 (80-100) fL MCH 29.6 (26-34) PG MCHC 33.8 (30-36) % RDW 15.5 H (11.6-14.8) % Plt Count 240 (150-400) X10^3/uL Neut % (Auto) 85.1 H (50-75) % Lymph % (Auto) 6.5 L (25-40) % [place] % (Auto) 5.7 (3-14) % Eos % (Auto) 2.3 (2-4) % Baso % (Auto) 0.4 (0-2) % Neut # (Auto) 33450 H (9443-8676) /uL Lymph # (Auto) 900 L (4512-1478) /uL [place] # (Auto) 800 (0-900) /uL Eos # (Auto) 300 (0-450) /uL Baso # (Auto) 100 (0-100) /uL Sodium 131 L (137-145) mmol/L Potassium 3.5 (3.4-5.1) mmol/L Chloride 104 (98-107) mmol/L Carbon Dioxide 22 (22-32) mmol/L BUN 13 (9-20) mg/dL Creatinine 0.80 (0.66-1.25) mg/dL Estimated GFR > 60 (>60) mL/min BUN/Creatinine Ratio 16.3 (6-22) Glucose 94 (80-110) mg/dL Lactate (0.7-2.1) mmol/L Calcium 7.7 L (8.4-10.2) mg/dL Magnesium 1.9 (1.6-2.3) mg/dL Total Bilirubin (0.2-1.3) mg/dL AST (17-59) IU/L ALT (<50) IU/L Alkaline Phosphatase (38-126) U/L Total Protein (6.3-8.2) g/dL Albumin (3.5-5.0) g/dL Globulin (1.7-4.1) g/dL Albumin/Globulin Ratio (1.0-2.8) Procalcitonin (<0.5) ng/mL Urine Color Urine Appearance Urine pH Normal (4.5-8.0) Ur Specific [place] (1.000-1.035) Urine Protein (Negative) Urine Glucose (UA) (Negative) g/dL Urine Ketones (NEGATIVE) Urine Occult Blood (Negative) Urine Nitrate (Negative) Urine Bilirubin (NEGATIVE) Urine Urobilinogen (0.2) E.U./dL Ur Leukocyte Esterase (NEGATIVE) Urine RBC (0-5/HPF) Urine WBC (0-5/HPF) Ur Squamous Epith Cells (0-5/HPF) Urine Bacteria (None) Ur Culture Indicated? Vol Urine Centrifuged Nasal Screen MRSA (PCR) Not detected (Not Detect) Vancomycin Trough 8.8 L (10-20) ug/mL U Opiates 300ng/mL cut (Negative) Ur Oxycodone Screen (Negative) Urine Methadone Screen (Negative) Ur Barbiturates Screen (Negative) U Tricyclic Antidepress (Negative) Ur Phencyclidine Scrn (Negative) Ur Amphetamines Screen (Negative) U Methamphetamines Scrn (Negative) Ur MDMA Scrn (Ecstasy) (Negative) U Benzodiazepines Scrn (Negative) Urine Cocaine Screen (Negative) U Marijuana (THC) Screen (Negative) Urine Specific [place] Normal (Normal) Ur Creatinine Normal (Normal) MDM Narrative Medical decision making narrative: CC: Left foot and ankle pain, tachycardia fever Complicating co-morbidities: He has a house arrest band around his left ankle that is seems to be causing the majority of his symptoms Data collected from: patient Social determinants of health that may influence the patients condition: Currently under house arrest Medical records reviewed: Discharge summary from November of 2020 is reviewed Differential considered: DVT, chronic lower extremity edema worsened by leg band, cellulitis secondary to edema and skin breakdown, sepsis, viral syndrome Exam documented above, pertinent findings include: Patient complains of cough however lungs are relatively clear, he is tachycardic, left lower extremity is swollen dramatically swollen pass the leg bag that has now been removed with skin breakdown and erythema and warmth of the foot to the level of the leg band Lab Test results independently reviewed as above. Pertinent findings: Independently reviewed EKG: Imaging studies independently reviewed: Consultations: Treatments: Re-evaluations: Discussion: DR. Mann -care of patient is signed out to me by daytime physician. Independent review of chart and patient performed by myself. Patient is resting comfortably in ED bed on his cell phone. Still tachycardic, but patient denies palpitations, chest pain, shortness of breath. He was currently receiving vancomycin infusion. Repeat exam of the ankle shows warmth generalized over the lower extremity particularly over the ankle joint. Palpable DP pulses. Still pending urinalysis and drug screen. Patient admitted for further treatment. Discharge Plan Departure Patient Disposition: Admitted As Inpatient Clinical Impression: Cellulitis of left leg Admit Date/Time: 07/15/24 10:11 Admit Provider: Collins Looney
--- NOTE | 2024-07-13 17:18 | DI.US.S_ITS ---
PROCEDURE: US PERIP VENOUS LOW EXTREM LT INDICATIONS: edema TECHNIQUE: Real-time imaging, as well as color and pulse Doppler interrogation, were performed of the lower extremity deep veins from the inguinal ligament to the popliteal fossa, with documentation of the visualized calf veins. COMPARISON: [facility], , [facility] VENOUS LOW EXTREM LT, 04/14/2024, 6:02. FINDINGS: The common femoral, femoral, popliteal, and the visualized calf veins are normally compressible, and free of intraluminal thrombus. Color and pulse Doppler demonstrate normal phasic intraluminal flow. There is normal augmentation response to distal compression maneuver. IMPRESSION: No findings of lower extremity deep venous thrombosis. Dictated by: Valerie Lawrence M.D. on 07/13/2024 at 18:37 Approved by: Valerie Lawrence M.D. on 07/13/2024 at 18:37
[2024-07-13] MEDS: SODIUM CHLORIDE 0.9% 1,000 ML 1000 ML IV (17:36)
[2024-07-13] MEDS: cefTRIAXone 2,000 MG in SODIUM CHLORIDE 0.9% 100 ML 200 MG IV (17:36)
[2024-07-13] MEDS: HYDROMORPHONE 0.5 MG INJ IV ×2 (17:36→18:54)
[2024-07-13 17:40] LABS: Add Manual Diff / Slide Review NO; Basophils Absolute Auto 100 /uL (0-100); Basophils Percent Auto 0.6 % (0-2); Eosinophils Absolute Auto 100 /uL (0-450); Eosinophils Percent Auto 0.8 % (2-4); Hemoglobin 12.8 g/dL (13.5-17.5); Lymphocytes Absolute Auto 800 /uL (1100-4500); Lymphocytes Percent Auto 7.3 % (25-40); Mean Corpuscular HGB Conc 33.8 % (30-36); Mean Corpuscular Hemoglobin 29.8 PG (26-34); Mean Corpuscular Volume 88.3 fL (80-100); Monocytes Absolute Auto 800 /uL (0-900); Monocytes Percent Auto 6.6 % (3-14); Neutrophils Absolute Auto 9700 /uL (1500-7000); Neutrophils Percent Auto 84.7 % (50-75); Platelet Count 304 X10^3/uL (150-400); Red Blood Cell Count 4.31 X10^6/uL (4.5-5.9); Red Cell Distribution Width 15.4 % (11.6-14.8); White Blood Cell Count 11.5 X10^3/uL (4.5-11.0)
[2024-07-13 17:53] LABS: Alanine Aminotransferase 35 IU/L (<50); Albumin 4.5 g/dL (3.5-5.0); Albumin Globulin Ratio 1.3 (1.0-2.8); Alkaline Phosphatase 126 U/L (38-126); Aspartate Aminotransferase 37 IU/L (17-59); BUN Creatinine Ratio 15.3 (6-22); Bilirubin Total 0.7 mg/dL (0.2-1.3); Blood Urea Nitrogen 15 mg/dL (9-20); Calcium 8.8 mg/dL (8.4-10.2); Carbon Dioxide 23 mmol/L (22-32); Chloride 101 mmol/L (98-107); Estimated Glomerular Filt Rate > 60 mL/min (>60); Globulin 3.5 g/dL (1.7-4.1); Glucose 136 mg/dL (80-110); HEMOLYSIS < 15 (0-50); Lactate (Lactic Acid) 2.1 mmol/L (0.7-2.1); Potassium 3.7 mmol/L (3.4-5.1); Sodium 134 mmol/L (137-145)
[2024-07-13 18:12] LABS: Procalcitonin 0.087 ng/mL (<0.5)
[2024-07-13] MEDS: VANCOMYCIN 1,000 MG/200 ML PIGGYBACK 200 MG IV (18:52)
[2024-07-13 19:11] LABS: Reflexed Lactate in 2 Hours Y
[2024-07-13 19:52] LABS: Lactate 2HR (Lactic Acid Rflx) 0.7 mmol/L (0.7-2.1)
[2024-07-13] MEDS: DEXTROSE 5%-0.9% NS 1,000 ML 100 ML IV (21:48)
--- NOTE | 2024-07-13 23:25 | PC.NURSE ---
Report given to Nancy ABEBEhome care provider.
[2024-07-13 23:57] LABS: Appearance Urine UA CLEAR; Bilirubin Urine UA NEGATIVE (NEGATIVE); Color Urine UA YELLOW; Glucose Urine UA NEGATIVE (Negative); Ketones Urine UA NEGATIVE (NEGATIVE); Leukocyte Esterase Urine UA NEGATIVE (NEGATIVE); Nitrite Urine UA NEGATIVE (Negative); Occult Blood Urine UA NEGATIVE (Negative); Protein Urine UA NEGATIVE (Negative); Specific Gravity Urine UA 1.015 (1.000-1.035); Urobilinogen Urine UA 0.2 E.U./dL (0.2)
[2024-07-13 23:58] LABS: Urine Volume 10mL (spun)
[2024-07-14] VITALS (10 sets, daily range): BP systolic 89–134; BP diastolic 55–83; PULSE 90–108; RESP 16–18; TEMP 36.2–38.5; O2SAT 95–99; BMI 21.2
[2024-07-14 00:01] LABS: Bacteria Urine Moderate (10-30); WBC Urine 0-1/HPF (0-5/HPF)
[2024-07-14 00:02] LABS: RBC Urine None Seen (0-5/HPF)
[2024-07-14 00:03] LABS: Culture Indicated Urine Cult Not Indicated; Squamous Epithelial Cell Urine 5-10 /HPF (0-5/HPF)
[2024-07-14 00:04] LABS: Ur Creatinine Normal (Normal); Ur Specific Gravity Normal (Normal); Urine Amphetamines Positive (Negative); Urine Barbiturates Negative (Negative); Urine Benzodiazepines Negative (Negative); Urine Cocaine Negative (Negative); Urine MDMA Negative (Negative); Urine Methadone Negative (Negative); Urine Methamphetamines Positive (Negative); Urine Opiates Negative (Negative); Urine Oxycodone Negative (Negative); Urine Phencyclidine Negative (Negative); Urine THC Negative (Negative); Urine Tricyclic Antidepressant Negative (Negative); Urine pH Normal (Normal)
--- NOTE | 2024-07-14 00:07 | PM.HP.1 ---
History of Present Illness History of Present Illness Chief complaint: swollen ankle Narrative: 68 years old male with history of methamphetamine abuse presented to the ER after he developed increased redness, skin break, swelling and pain in his left ankle. The patient is under house arrest and had a leg band on his left ankle placed around 10 days ago. In the last several days he started developing pain, swelling, redness and decreased blood supply in his left ankle. He also reports some generalized weakness and malaise. In the ER he was found to have left ankle cellulitis and was started on ceftriaxone and vancomycin. [facility] Medical History (Updated 07/13/24 @ 19:25 by Steffi Mann MD) BPH (benign prostatic hyperplasia) Varicose veins of both lower extremities Sciatica Surgical History History of prostate surgery H/O neck surgery Social History household members: none Smoking Status: Current some day smoker alcohol intake: current Meds Home Medications and Allergies Home Medications Medication Instructions Recorded Confirmed Type hydrocodone 5 mg-acetaminophen 325 1 tab PO Q4-6H PRN pain #7 tabs 05/05/20 11/17/20 Rx mg tablet ([place]) cephalexin 500 mg capsule 500 mg PO TID #21 caps 04/14/24 Rx Allergies Allergy/AdvReac Type Severity Reaction Status Date / Time naproxen [NAPROXEN] Allergy Unknown Verified 07/13/24 17:01 Review of Systems Review of Systems ROS: Yes All systems reviewed with the patient and are negative except as otherwise documented Constitutional Constitutional: Reports as per HPI and Reports system reviewed and no additional complaints, except as documented Eyes Eyes: Reports as per HPI and Reports system reviewed and no additional complaints, except as documented ENT Ears, Nose, Mouth, and Throat: Yes as per HPI and Yes system reviewed and no additional complaints, except as documented Cardiovascular Cardiovascular: Reports system reviewed and no additional complaints, except as documented Respiratory Respiratory: Reports system reviewed and no additional complaints, except as documented Gastrointestinal Gastrointestinal: Reports system reviewed and no additional complaints, except as documented Genitourinary Genitourinary: Reports system reviewed and no additional complaints, except as documented Musculoskeletal Musculoskeletal: Reports system reviewed and no additional complaints, except as documented, Reports abnormal gait and Reports numbness Neurologic Neurologic: Reports system reviewed and no additional complaints, except as documented, Reports abnormal gait, Reports confusion and Reports numbness Psychiatric Psychiatric: Reports system reviewed and no additional complaints, except as documented and Reports confusion Exam Vital Signs (past 8 hours): - 07/13/24 16:51 07/13/24 17:10 07/13/24 17:11 Temperature 100.3 F H Pulse Rate 130 H 130 H Respiratory Rate 16 20 Blood Pressure 126/97 H 183/106 H Pulse Oximetry 99 99 Oxygen Delivery Method Room Air Oxygen Flow Rate 07/13/24 17:11 07/13/24 17:30 07/13/24 17:30 Temperature Pulse Rate 129 H 124 H Respiratory Rate Blood Pressure 191/116 H Pulse Oximetry 99 99 Oxygen Delivery Method Oxygen Flow Rate 07/13/24 18:07 07/13/24 18:07 07/13/24 18:30 Temperature Pulse Rate 119 H 110 H Respiratory Rate 20 21 Blood Pressure 169/89 H Pulse Oximetry 98 99 Oxygen Delivery Method Oxygen Flow Rate 07/13/24 19:00 07/13/24 19:00 07/13/24 19:30 Temperature Pulse Rate 123 H Respiratory Rate Blood Pressure 163/90 H 156/110 H Pulse Oximetry 97 Oxygen Delivery Method Oxygen Flow Rate 07/13/24 19:30 07/13/24 20:00 07/13/24 20:00 Temperature Pulse Rate 127 H 121 H Respiratory Rate 25 H 26 H Blood Pressure 163/98 H Pulse Oximetry 99 98 Oxygen Delivery Method Room Air Room Air Oxygen Flow Rate 07/13/24 20:30 07/13/24 20:30 07/13/24 21:00 Temperature Pulse Rate 109 H Respiratory Rate 20 Blood Pressure 162/97 H 164/101 H Pulse Oximetry 100 Oxygen Delivery Method Room Air Oxygen Flow Rate 07/13/24 21:00 07/13/24 21:30 07/13/24 21:30 Temperature Pulse Rate 108 H 109 H Respiratory Rate 18 Blood Pressure 163/97 H Pulse Oximetry 100 100 Oxygen Delivery Method Room Air Oxygen Flow Rate 07/13/24 22:00 07/13/24 22:00 07/13/24 22:30 Temperature Pulse Rate 113 H 112 H Respiratory Rate Blood Pressure 141/89 H Pulse Oximetry 97 100 Oxygen Delivery Method Room Air Oxygen Flow Rate 07/13/24 22:31 07/13/24 22:31 07/13/24 23:00 Temperature Pulse Rate 112 H 114 H Respiratory Rate 20 20 Blood Pressure 164/92 H Pulse Oximetry 99 97 Oxygen Delivery Method Room Air Room Air Oxygen Flow Rate 07/13/24 23:00 07/13/24 23:53 Temperature 99.8 F H Pulse Rate 121 H Respiratory Rate 16 Blood Pressure 151/98 H 152/87 H Pulse Oximetry 98 Oxygen Delivery Method Oxygen Flow Rate 0 Oxygen Delivery Method Room Air Oxygen Flow Rate 0 Const General: cooperative, comfortable and well developed Orientation: alert and oriented x3 [facility] Head: normal to inspection, normocephalic and atraumatic Face and sinus: normal facial exam Mouth: oral mucosae normal and moist mucous membranes Throat: posterior oropharynx normal Eyes General: appearance normal, both eyes and all related structures Pupils: PERRL EOM: EOM intact bilaterally Neck Neck: normal visual inspection and full ROM Chest Chest: normal inspection of the chest Resp Effort & Inspection: normal respiratory effort and able to speak in complete sentences Auscultation: clear to auscultation bilaterally Cardio Palpation: normal PMI Rate: regular rate Rhythm: regular rhythm Heart Sounds: S1 normal and S2 normal GI Inspection: normal to inspection Palpation: soft and no hepatosplenomegaly Auscultation: normal bowel sounds Skin General: no rashes or lesions noted Lesions: no lesions Rashes: no rashes Trauma: no lacerations or abrasions Neuro General: patient alert, patient awake, patient oriented x3 and no focal motor deficits Cranial Nerves: CN's II-XI intact bilaterally Cognition: normal cognition Speech: speech normal Gait: normal gait Motor: muscle tone normal throughout Sensory Exam: no sensory deficits noted Extrem General: full ROM and no calf tenderness Psych Appearance: grossly normal Mental Status: mental status grossly normal Speech and Movement: speech and movement normal Objective Labs 07/13/24 17:15 07/13/24 17:15 Labs: Laboratory Results - last 24 hr 07/13/24 07/13/24 07/13/24 17:15 19:20 23:50 WBC 11.5 H RBC 4.31 L Hgb 12.8 L Hct 38.0 L MCV 88.3 MCH 29.8 MCHC 33.8 RDW 15.4 H Plt Count 304 Neut % (Auto) 84.7 H Lymph % (Auto) 7.3 L [place] % (Auto) 6.6 Eos % (Auto) 0.8 L Baso % (Auto) 0.6 Neut # (Auto) 9700 H Lymph # (Auto) 800 L [place] # (Auto) 800 Eos # (Auto) 100 Baso # (Auto) 100 Sodium 134 L Potassium 3.7 Chloride 101 Carbon Dioxide 23 BUN 15 Creatinine 0.98 Estimated GFR > 60 BUN/Creatinine Ratio 15.3 Glucose 136 H Lactate 2.1 0.7 Calcium 8.8 Total Bilirubin 0.7 AST 37 ALT 35 Alkaline Phosphatase 126 Total Protein 8.0 Albumin 4.5 Globulin 3.5 Albumin/Globulin Ratio 1.3 Procalcitonin 0.087 Urine Color Yellow Urine Appearance Clear Urine pH 7.0 Ur Specific [place] 1.015 Urine Protein Negative Urine Glucose (UA) Negative Urine Ketones Negative Urine Occult Blood Negative Urine Nitrate Negative Urine Bilirubin Negative Urine Urobilinogen 0.2 Ur Leukocyte Esterase Negative Urine RBC None seen Urine WBC 0-1/hpf Ur Squamous Epith Cells 5-10 /hpf H Urine Bacteria Moderate (10-30) H Ur Culture Indicated? Cult not indicated Vol Urine Centrifuged 10ml (spun) U Opiates 300ng/mL cut Negative Ur Oxycodone Screen Negative Urine Methadone Screen Negative Ur Barbiturates Screen Negative U Tricyclic Antidepress Negative Ur Phencyclidine Scrn Negative Ur Amphetamines Screen Positive H U Methamphetamines Scrn Positive H Ur MDMA Scrn (Ecstasy) Negative U Benzodiazepines Scrn Negative Urine Cocaine Screen Negative U Marijuana (THC) Screen Negative Urine Specific [place] Ur Creatinine 07/13/24 23:50 WBC RBC Hgb Hct MCV MCH MCHC RDW Plt Count Neut % (Auto) Lymph % (Auto) [place] % (Auto) Eos % (Auto) Baso % (Auto) Neut # (Auto) Lymph # (Auto) [place] # (Auto) Eos # (Auto) Baso # (Auto) Sodium Potassium Chloride Carbon Dioxide BUN Creatinine Estimated GFR BUN/Creatinine Ratio Glucose Lactate Calcium Total Bilirubin AST ALT Alkaline Phosphatase Total Protein Albumin Globulin Albumin/Globulin Ratio Procalcitonin Urine Color Urine Appearance Urine pH Normal Ur Specific [place] Urine Protein Urine Glucose (UA) Urine Ketones Urine Occult Blood Urine Nitrate Urine Bilirubin Urine Urobilinogen Ur Leukocyte Esterase Urine RBC Urine WBC Ur Squamous Epith Cells Urine Bacteria Ur Culture Indicated? Vol Urine Centrifuged U Opiates 300ng/mL cut Ur Oxycodone Screen Urine Methadone Screen Ur Barbiturates Screen U Tricyclic Antidepress Ur Phencyclidine Scrn Ur Amphetamines Screen U Methamphetamines Scrn Ur MDMA Scrn (Ecstasy) U Benzodiazepines Scrn Urine Cocaine Screen U Marijuana (THC) Screen Urine Specific [place] Normal Ur Creatinine Normal Assessment & Plan Assessment & Plan narrative: Sepsis Left ankle cellulitis -Antibiotics of Vancomycin, ceftriaxone, -Blood cultures times 2, wound care. -Elevate the affected area/limb -IV fluids -Pain medications when necessary, -check for MRSA and if negative, can DC vancomycin Time-Based Coding :: [TOTAL MINUTES] spent with patient and on the chart (including review of chart, obtaining history, exam, reviewing outside data, placing orders, documenting exam and treatment plan, and counseling patient) on [DATE]. Quality VTE Deep Vein Thrombosis/Pulmonary Embolism Present on Admission: No MIPS - Admit I confirm the patient?s Advance Care Plan is present, Code status is documented, Surrogate decision maker is in patient?s record [If Yes, STOP here]: Yes MIPS - Meds 'Current medications' to include all prescriptions, [id number] products, herbals, cannabis/cannabidiol products, and vitamin/mineral/dietary (nutritional) supplements. I have utilized all available resources to obtain, update, or review the patient?s current medications. [If Yes, STOP here]: Yes
[2024-07-14] MEDS: HYDROMORPHONE 0.5 MG INJ IV (00:13)
[2024-07-14 01:31] LABS: MRSA (Nasal) PCR NOT DETECTED (Not Detect)
--- NOTE | 2024-07-14 03:46 | PC.NURSE ---
fast food shift lead: Patient arrived from ED approximately 0045 via stretcher, ambulatory with 1 PA. Patient is AxOx4, although is fatigued & has mumbled speech. Reports 7/10 pain in L ankle, medicated as ordered with relief. CMS intact, 3+ pitting edema in L foot. LLE is red & flaky with scattered abrasions (picture uploaded). Tachycardic in 120's at rest, MD aware, otherwise VSS. Denies SOB, CP, nausea, dizziness. Oriented to call-light, fall precautions in place, plan of care ongoing.
[2024-07-14] MEDS: ACETAMINOPHEN 325 MG TABLET 650 MG PO ×2 (05:29→16:40)
[2024-07-14] MEDS: DEXTROSE 5%-0.9% NS 1,000 ML 100 ML IV (06:23)
[2024-07-14] MEDS: VANCOMYCIN 1,000 MG/200 ML PIGGYBACK 200 MG IV ×2 (06:52→18:48)
--- NOTE | 2024-07-14 10:55 | PT.IIE ---
Surgical History (Last Reviewed 11/17/20 @ 22:32 by Jose Dangelo MD) H/O neck surgery History of prostate surgery Medical History (Last Updated 11/18/20 @ 00:52 by HÉCTOR Cooper) BPH (benign prostatic hyperplasia) Sciatica Varicose veins of both lower extremities Physical Therapy Inpatient Evaluation/Re-Eval M1 PT/OT-IP Prior Functional Status Start: 07/14/24 11:37 Freq: NEEDED Status: Active Protocol: Document 07/14/24 10:55 AB (Rec: 07/14/24 12:31 AB [id number]) Medical Review Prior Functional Status Medical History Reviewed Yes Communication able to make needs known Mobility and Gait pt stated that he was modified independent with all mobilities and ambulation without AD indoors but with occasional SPC use; uses SPC for outdoor mobility but stated that he mostly just stays in his bed. Social History Household Members friend(s) Living Arrangements House Number of Floors (Floors) One Floor Number of Stairs To Enter/Railing? 3 steps without rails to enter the house Home Environment Standard Height Toilet,Walk in Shower Home Equipment Front Wheel Walker,Straight Cane,Hand Held Shower,Grab Bars Near Toilet,Grab Bars In Shower Additional Social History Comment pt stated that he has a roommate that can assist if able; has friends/tenants per pt who assists him with meals M2 PT-IP Current Condition Start: 07/14/24 11:37 Freq: NEEDED Status: Active Protocol: Document 07/14/24 10:55 AB (Rec: 07/14/24 12:31 AB [id number]) Physical Therapy Current Condition Current Condition Evaluation Date 07/14/24 Treatment Diagnosis LLE cellulitis; difficulties in walking Onset Date 07/13/24 M3 PT-IP Subjective Start: 07/14/24 11:37 Freq: NEEDED Status: Active Protocol: Document 07/14/24 10:55 AB (Rec: 07/14/24 12:31 AB [id number]) Subjective Physical Therapy Visit Type Type Initial Evaluation Visit Start Time 10:55 Visit Stop Time 11:30 Number of SURVEY ANALYST Visits 0 Physical Therapy Visit Comments Patient Comments agreeable to do PT Therapy Pain Assessment Pain When Pain Assessed During Mobility Pain Present Pain Present Pain Reported Location Bilateral Lower Leg Intensity 8 Scale Used Numeric (0 - 10) Pain Behaviors Facial Grimacing,Guarding, Wincing Pain Management Techniques Distraction,Modification of Treatment,Re-positioning M4 PT-IP Mobility and Gait Start: 07/14/24 11:37 Freq: NEEDED Status: Active Protocol: Document 07/14/24 10:55 AB (Rec: 07/14/24 12:31 AB [id number]) PT-Bed Mobility Assessment Supine to Sit Supine to Sit Independent PT-Transfer Assessment Sit to and From Stand Sit to and from Stand Contact Guard Assistance,1 Person Assistance,Use of Upper Extremities Equipment Transfer Assistive Device Gait Belt,Front Wheeled Walker Orthotic/Prosthetic Devices or Brace: No Transfers Transfer Destination Chair Transfer Technique ambulated Transfer Ability Level of Assist Minimal Assistance,Moderate Assistance,1 Person Assistance ,Use of Upper Extremities Comments Mobility Comments pt supine in bed and agreeable to do PT. obtained PLOF and home set up from pt. pt completed supine to sit mod I. Able to sit on EOB SBA. completed sit to stand CGA and ambulated ~ 7 ft using FWW min to mod A and cues. presents with antalgic gait with c/o increase LLE pain with weight bearing. pt sat on the chair. requested to use the urinal. completed sit to stand CGA and was able to maintain standing CGA while using the urinal. pt sat back on chair. positioned pt on the chair. pt needing to be cleaned up. NAC in room to assist. Left pt with NAC. Gait Assessment Gait Gait Assistance Required: Minimum Assistance,Moderate Assistance Distance (Feet) 7 Able to Maintain Weight Bearing Status Yes During Gait Assistive Devices Assistive Device Gait Belt,Front Wheeled Walker Orthotic/Prosthetic Devices or Brace: No Gait Deviations General Gait Pattern Antalgic,Decreased Stride Length,Decreased Feet Clearance,Step-to Gait Factors Limiting Gait Function Factors Limiting Gait Function Decreased Activity Tolerance, Decreased Strength,Limited Range of Motion,Pain,Poor Balance,Poor Safety Awareness PT-Balance Assessment Sitting Balance and Reactions Static Sitting Balance Ability Normal Dynamic Sitting Balance Ability Good Standing Balance and Reactions Static Standing Balance Ability Fair Dynamic Standing Balance Ability Fair Device Used FWW M5 PT-IP Objective Assessments Start: 07/14/24 11:37 Freq: NEEDED Status: Active Protocol: Document 07/14/24 10:55 AB (Rec: 07/14/24 12:31 AB [id number]) Orientation Orientation/Cognition Level of Alertness Alert Orientation Name,Place,Situation Language Function Ability Hard of Hearing Safety Awareness Decreased Safety Awareness Memory Description Short Term Impaired Gross Range of Motion Lower Extremity ROM Assessment Within Functional Limits Strength Lower Extremity Strength Assessment Within Functional Limits Muscle Tone Muscle Tone WNL Yes M6 PT-IP Treatment Start: 07/14/24 11:37 Freq: NEEDED Status: Active Protocol: Document 07/14/24 10:55 AB (Rec: 07/14/24 12:31 AB [id number]) Physical Therapy Treatment Education Education Provided Safety M7 PT-IP Assessment and Plan Start: 07/14/24 11:37 Freq: NEEDED Status: Active Protocol: Document 07/14/24 10:55 AB (Rec: 07/14/24 12:31 AB [id number]) PT Summary Assessment and Plan Potential Rehabilitation Potential Fair Status of Condition at Evaluation Evolving Summary Impairments Pain,ROM,Strength,Balance, Coordination,Sensation,Tone, Cognition,Bed Mobility, Transfers,Gait,Activity Tolerance Assessment Summary pt is a 68 y/o M admitted for LLE cellulitis. pt requiring min to mod A for ambulation using FWW with c/o increase LLE pain with weight bearing. d/c plan depending on progress. pt will need assistance at home. will continue to assess. Goals Bed Mobility Goal Independent Transfer Goal Independent,Front Wheeled Walker Gait Goal Independent,Front Wheel Walker Gait Distance 100 Other Goals up/down 3 steps without rails SBA Days to Meet Goals 10 Frequency of Treatment Frequency Of Treatment Once a Day Treatment Plan Physical Therapy Treatment Plan Bed Mobility Training,Transfer Training,Gait Training, Therapeutic Exercise,Balance Retraining,Discharge Planning, Hot or Cold Pack,Neuromuscular Re-ed,Coordination Retraining ,Manual Therapy Recommendations To Nursing Amount of Assist Needed 1 Person Assist Discharge Recommendations PT Discharge Recommendations Home with Assistance,Home Health Transportation Needs at Discharge Private Vehicle
--- NOTE | 2024-07-14 11:30 | CM.DANOTE ---
Initial DCP Assessment Visit Pt is a 68 year-old M under house arrest by [facility], wearing an ankle monitoring bracelet on his L-ankle. He presented to the ED last evening with c/o worsening L-ankle and foot pain, with increasing redness/swelling/cellulitis appearing to be resulting from the ankle bracelet being too tight. The ED provider had to cut the bracelet off due to it being too tight and digging into pt's skin. Per the [facility], pt will need to have the ankle bracelet replaced on the the R-foot prior to d/c. Pt resides in his home in [place] [facility] [place] [facility], it's u/k whether he lives alone or with family. Tox screen in the ED was positive for high levels of methamphetamine. Payor: [place] PCP- [facility] Pt is a 68 year-old M with L-ankle cellulitis. He was started on IV antibiotics and fluids in the ED, then transferred to the floor as OBS for further tx. This ENVIRONMENTAL MARKETING REPRESENTATIVE did call the [facility] Department to clarify the plan for d/c, including the replacement of the ankle bracelet, and who will be responsible for transporting him home at d/c, which is anticipated for tomorrow, 07/15. DCP will continue to monitor for final d/c plan and any further evolving needs/resources. Discharge Planning/Care Management CM Discharge Assessment Start: 07/14/24 11:27 Freq: Status: Active Protocol: Document 07/14/24 11:27 DPL (Rec: 07/14/24 11:29 DPL [id number]) Discharge Planning Assessment Assigned Card Seller TAHIRA Buckley Advance Directives? No History Provided By Patient,Medical Record Has Patient been admitted in last 30 No days? Prior Living Arrangements House Household Members none Type of transporation used prior to Relies on Others admit Independent with ADL's Yes Is patient alert and oriented? Yes Caregiver for Another No Comment U/K Comment No anticipated home d/c needs at this time. Barriers to Discharge No Discharge Plan Home Transportation Arrangement TBD Additional Comment No needs identified at this time. Whiteboard Updated in Patient Room with Yes name and ext. # of Card Seller Review Status In Process Please Provide Date Initial DC 07/14/24 Assessment Was Performed
[2024-07-14] MEDS: HYDROMORPHONE 1 MG INJ IV ×2 (14:12→18:48)
--- NOTE | 2024-07-14 14:22 | CM.DPC ---
Addendum entered by Layla Serrato 07/14/24 14:28: [employer]: [phone] Original Note: Spoke with Tracey at [employer], the ankle bracelet management company for this patient. Notified them the will need to replace the ankle bracelet prior to d/c per the [facility]. Tracey confirmed an agent will come tomorrow, 07/15, before 1200 to replace the bracelet.
--- NOTE | 2024-07-14 15:00 | OT.IP.EVAL ---
Past Medical History (Last Updated 11/18/20 @ 00:52 by HÉCTOR Cooper) BPH (benign prostatic hyperplasia) Sciatica Varicose veins of both lower extremities Surgical History (Last Reviewed 11/17/20 @ 22:32 by Jose Dangelo MD) H/O neck surgery History of prostate surgery Occupational Therapy Inpatient Evaluation/Re-Eval M1 PT/OT-IP Prior Functional Status Start: 07/14/24 15:21 Freq: NEEDED Status: Active Protocol: Document 07/14/24 15:23 [facility] (Rec: 07/14/24 15:35 [facility] [id number]) Medical Review Prior Functional Status Medical History Reviewed Yes Communication able to make needs known Mobility and Gait pt stated that he was modified independent with all mobilities and ambulation without AD indoors but with occasional SPC use; uses SPC for outdoor mobility but stated that he mostly just stays in his bed. Activities of Daily Living and IADL's Pt states has friends or to hire assist for any needs. Social History Household Members none Living Arrangements House Number of Floors (Floors) One Floor Number of Stairs To Enter/Railing? 3 steps without rails to enter the house Home Environment Standard Height Toilet,Walk in Shower Home Equipment Front Wheel Walker,Straight Cane,Hand Held Shower,Grab Bars Near Toilet,Grab Bars In Shower Additional Social History Comment pt stated that he has a roommate that can assist if able; has friends/tenants per pt who assists him with meals M2 OT-IP Current Condition Start: 07/14/24 15:21 Freq: Status: Active Protocol: Document 07/14/24 15:23 [facility] (Rec: 07/14/24 15:35 [facility] [id number]) Occupational Therapy Current Condition Current Condition Evaluation Date 07/14/24 Treatment Diagnosis LLE cellulitis Diagnosis Onset Date 07/13/24 Weight Bearing Status Weight Bearing Status Weight Bear as Tolerated M3 OT- IP Subjective and Pain Start: 07/14/24 15:21 Freq: Status: Active Protocol: Document 07/14/24 15:23 [facility] (Rec: 07/14/24 15:35 [facility] [id number]) OT- Subjective Occupational Therapy Visit Type Type Initial Evaluation Visit Start Time 14:40 Visit Stop Time 15:00 Occupational Therapy Visit Comments Patient Comments Pt agreed to get up to use the toilet. Patient/Caregiver Goals TO go home. OT Pain Assessment Pain When Pain Assessed During Mobility Pain Present Pain Present Pain Reported Location Left Ankle Intensity 10 Scale Used Numeric (0 - 10) M4 OT- IP ADL's Start: 07/14/24 15:21 Freq: Status: Active Protocol: Document 07/14/24 15:23 [facility] (Rec: 07/14/24 15:35 [facility] [id number]) OT WEF-Shym-Acohmzk General Evaluation Self-Feeding Ability Independent OT ADL-Grooming Comments OT Grooming Comments Pt refused. OT ADL-Oral Care Comments Oral Care Comments Pt declined. OT ADL-Dressing Comments OT Dressing Comments Pt insists that he pablo do it all on his own. OT ADL-Toileting General Evaluation Toileting Ability Independent Comments OT Toileting Comments Pt able to independently use toilet on his own, suggested to get a bsc, pt declined. OT ADL-Bathing Comments OT Bathing Comments Pt will benefit from a shower chair, pt states to just sponge off. M5 OT- IP IADL's Start: 07/14/24 15:21 Freq: Status: Active Protocol: Document 07/14/24 15:23 [facility] (Rec: 07/14/24 15:35 [facility] [id number]) OT-Instrumental Activities of Daily Living Home Safety Awareness Awareness of Need for Assistance at Home Good Awareness Home Safety Comments Pt insistent that he will be able to care for himself with assist from his friends or hire assist. Meal Preparation Meal Preparation Caregiver Provides Assist Senior Program Analyst Senior Program Analyst Caregiver Provides Assist M6 OT- IP Functional Cognition Start: 07/14/24 15:21 Freq: Status: Active Protocol: Document 07/14/24 15:23 [facility] (Rec: 07/14/24 15:35 [facility] [id number]) Cognitive Factors Limiting Selfcare Function Cognitive Ability Level of Alertness Alert Patient Orientation Name,Age,Birthday,Month,Date, Year,Day of Week,Place, Situation Attention Span Ability Capable of Focused Attention, Capable of Sustained Attention Ability to Follow Commands Able to Follow One Step Commands Cognitive Comments Cognitive Assessment Comments Pt appears at baseline for cognitive needs. OT- Vision and Hearing OT- Hearing Assessment OT- Hearing Assessment WFL M7 OT- IP Mobility and Balance Start: 07/14/24 15:21 Freq: Status: Active Protocol: Document 07/14/24 15:23 [facility] (Rec: 07/14/24 15:35 [facility] [id number]) OT- Bed Mobility Assessment Supine to Sit Supine to Sit Assist Independent Sit to Supine Sit to Supine Assist Independent OT-Transfer Assessment Sit to and From Stand Sit to and from Stand Standby Assistance Transfers Transfer Ability Standby Assistance Technique Transfer Destination Bed,Toilet Transfer Technique Stand Step Pivot Devices Transfer Assistive Devices Gait Belt,Front Wheeled Walker Comments Mobility Comments SBA, mainly assist to help move the IV pole and pt able to walk with the FWW and just putting 20% on his weight on his left foot, even though pt is WBAT. OT- Gait Assessment Comments Gait Ability Comments Pt tend to keep his left leg forwards and heavy use of his arms on the FWW to be able to walk. OT- Balance Assessment Sitting Balance and Reactions Static Sitting Balance Ability Normal Dynamic Sitting Balance Ability Good Standing Balance and Reactions Static Standing Balance Ability Fair Dynamic Standing Balance Ability Fair M8 OT- IP Objective Assessments Start: 07/14/24 15:21 Freq: Status: Active Protocol: Document 07/14/24 15:23 [facility] (Rec: 07/14/24 15:35 [facility] [id number]) OT Gross Range of Motion Upper Extremity Range of Motion Assessment Within Functional Limits OT Strength Upper Extremity Strength Assessment Within Functional Limits M9 OT- IP Assessment and Plan Start: 07/14/24 15:21 Freq: Status: Active Protocol: Document 07/14/24 15:23 [facility] (Rec: 07/14/24 15:35 [facility] [id number]) OT Summary Assessment and Plan Potential Rehabilitation Potential Good Analytic Complexity at Evaluation Low Summary OT Impairments Pain,Functional Mobility, Dressing,Bathing,Shower Transfers Progress Towards Goals Progressing Toward Goals Assessment Summary Pt MOD complexity and main barriers are steps, pain, and will need assist for IADL needs. Pt is insistent of his care and not wanting any OT suggestions at this time and feels that he will be fine with the assist from his friends or hire assist. Therefore discharge pt from OT services. Pt to go home with assist when medically stable. Frequency of Treatment Frequency Of Treatment Discharge Discharge Recommendations OT Discharge Recommendations Home with Assistance Home Equipment Needs BSC, shower chair Transportation Needs at Discharge Private Vehicle
--- NOTE | 2024-07-14 16:43 | P.PN_ITS ---
Subjective Subjective Interval history: 68 years old male with history of methamphetamine abuse presented to the ER after he developed increased redness, skin break, swelling and pain in his left ankle. The patient is under house arrest and had a leg band on his left ankle placed around 10 days ago. In the last several days he started developing pain, swelling, redness and decreased blood supply in his left ankle. He also reports some generalized weakness and malaise. In the ER he was found to have left ankle cellulitis and was started on ceftriaxone and vancomycin. 68 year old male admitted with left leg cellulitis, continued pain and swelling today, difficult to ambulate. Exam Vital Signs (past 8 hours): - 07/14/24 12:00 07/14/24 16:00 07/14/24 16:40 Temperature 98.7 F 100.6 F H 101.2 F H Pulse Rate 92 H 101 H Respiratory Rate 18 16 Blood Pressure 134/74 128/75 Pulse Oximetry 99 99 Oxygen Delivery Method Room Air Oxygen Flow Rate 0 Narrative Exam Narrative: Gen: No acute distress, mild discomfort CV: RRR Pulm: CTA b/l Abd: S NT ND Ext: trace to 1+ edema LLE. some superficial healing scars, no drainage, minimal erythema. + warmth and tenderness. Objective Labs 07/13/24 17:15 07/13/24 17:15 Labs: Laboratory Results - last 24 hr 07/13/24 07/13/24 07/13/24 17:15 19:20 23:50 WBC 11.5 H RBC 4.31 L Hgb 12.8 L Hct 38.0 L MCV 88.3 MCH 29.8 MCHC 33.8 RDW 15.4 H Plt Count 304 Neut % (Auto) 84.7 H Lymph % (Auto) 7.3 L [place] % (Auto) 6.6 Eos % (Auto) 0.8 L Baso % (Auto) 0.6 Neut # (Auto) 9700 H Lymph # (Auto) 800 L [place] # (Auto) 800 Eos # (Auto) 100 Baso # (Auto) 100 Sodium 134 L Potassium 3.7 Chloride 101 Carbon Dioxide 23 BUN 15 Creatinine 0.98 Estimated GFR > 60 BUN/Creatinine Ratio 15.3 Glucose 136 H Lactate 2.1 0.7 Calcium 8.8 Total Bilirubin 0.7 AST 37 ALT 35 Alkaline Phosphatase 126 Total Protein 8.0 Albumin 4.5 Globulin 3.5 Albumin/Globulin Ratio 1.3 Procalcitonin 0.087 Urine Color Yellow Urine Appearance Clear Urine pH 7.0 Ur Specific [place] 1.015 Urine Protein Negative Urine Glucose (UA) Negative Urine Ketones Negative Urine Occult Blood Negative Urine Nitrate Negative Urine Bilirubin Negative Urine Urobilinogen 0.2 Ur Leukocyte Esterase Negative Urine RBC None seen Urine WBC 0-1/hpf Ur Squamous Epith Cells 5-10 /hpf H Urine Bacteria Moderate (10-30) H Ur Culture Indicated? Cult not indicated Vol Urine Centrifuged 10ml (spun) Nasal Screen MRSA (PCR) U Opiates 300ng/mL cut Negative Ur Oxycodone Screen Negative Urine Methadone Screen Negative Ur Barbiturates Screen Negative U Tricyclic Antidepress Negative Ur Phencyclidine Scrn Negative Ur Amphetamines Screen Positive H U Methamphetamines Scrn Positive H Ur MDMA Scrn (Ecstasy) Negative U Benzodiazepines Scrn Negative Urine Cocaine Screen Negative U Marijuana (THC) Screen Negative Urine Specific [place] Ur Creatinine 07/13/24 07/14/24 23:50 00:10 WBC RBC Hgb Hct MCV MCH MCHC RDW Plt Count Neut % (Auto) Lymph % (Auto) [place] % (Auto) Eos % (Auto) Baso % (Auto) Neut # (Auto) Lymph # (Auto) [place] # (Auto) Eos # (Auto) Baso # (Auto) Sodium Potassium Chloride Carbon Dioxide BUN Creatinine Estimated GFR BUN/Creatinine Ratio Glucose Lactate Calcium Total Bilirubin AST ALT Alkaline Phosphatase Total Protein Albumin Globulin Albumin/Globulin Ratio Procalcitonin Urine Color Urine Appearance Urine pH Normal Ur Specific [place] Urine Protein Urine Glucose (UA) Urine Ketones Urine Occult Blood Urine Nitrate Urine Bilirubin Urine Urobilinogen Ur Leukocyte Esterase Urine RBC Urine WBC Ur Squamous Epith Cells Urine Bacteria Ur Culture Indicated? Vol Urine Centrifuged Nasal Screen MRSA (PCR) Not detected U Opiates 300ng/mL cut Ur Oxycodone Screen Urine Methadone Screen Ur Barbiturates Screen U Tricyclic Antidepress Ur Phencyclidine Scrn Ur Amphetamines Screen U Methamphetamines Scrn Ur MDMA Scrn (Ecstasy) U Benzodiazepines Scrn Urine Cocaine Screen U Marijuana (THC) Screen Urine Specific [place] Normal Ur Creatinine Normal [facility] Medical History (Updated 07/13/24 @ 19:25 by Steffi Mann MD) BPH (benign prostatic hyperplasia) Varicose veins of both lower extremities Sciatica Surgical History History of prostate surgery H/O neck surgery Social History household members: none Smoking Status: Current some day smoker alcohol intake: current Assessment & Plan Assessment & Plan narrative: Sepsis Left ankle cellulitis -Antibiotics of Vancomycin, ceftriaxone, -Blood cultures times 2, wound care. -Elevate the affected area/limb -IV fluids -Pain medications when necessary, -DVT study negative for DVT Code: Full Dispo: LIkely home in 1-2 days. Time-Based Coding :: [TOTAL MINUTES] spent with patient and on the chart (including review of chart, obtaining history, exam, reviewing outside data, placing orders, documenting exam and treatment plan, and counseling patient) on [DATE]. Quality VTE Deep Vein Thrombosis/Pulmonary Embolism Present on Admission: No
[2024-07-14] MEDS: HYDROCODONE/ACET 5/325 TABLET 1 TAB PO (17:19)
[2024-07-14] MEDS: cefTRIAXone 2,000 MG in SODIUM CHLORIDE 0.9% 100 ML 200 MG IV (20:09)
[2024-07-14] MEDS: SENNOSIDES 8.6 MG TABLET 17.2 MG PO (20:09)
[2024-07-14] MEDS: NICOTINE 14 PATCH 14 MG TOP (20:17)
[2024-07-15] VITALS (9 sets, daily range): BP systolic 105–131; BP diastolic 56–84; PULSE 64–100; RESP 16–18; TEMP 36.4–38.2; O2SAT 96–100
[2024-07-15] MEDS: HYDROMORPHONE 1 MG INJ IV ×3 (02:34→21:00)
[2024-07-15 06:28] LABS: Add Manual Diff / Slide Review NO; Basophils Absolute Auto 100 /uL (0-100); Basophils Percent Auto 0.4 % (0-2); Eosinophils Absolute Auto 300 /uL (0-450); Eosinophils Percent Auto 2.3 % (2-4); Hemoglobin 11.5 g/dL (13.5-17.5); Lymphocytes Absolute Auto 900 /uL (1100-4500); Lymphocytes Percent Auto 6.5 % (25-40); Mean Corpuscular HGB Conc 33.8 % (30-36); Mean Corpuscular Hemoglobin 29.6 PG (26-34); Mean Corpuscular Volume 87.7 fL (80-100); Monocytes Absolute Auto 800 /uL (0-900); Monocytes Percent Auto 5.7 % (3-14); Neutrophils Absolute Auto 12300 /uL (1500-7000); Neutrophils Percent Auto 85.1 % (50-75); Platelet Count 240 X10^3/uL (150-400); Red Blood Cell Count 3.88 X10^6/uL (4.5-5.9); Red Cell Distribution Width 15.5 % (11.6-14.8); White Blood Cell Count 14.4 X10^3/uL (4.5-11.0)
[2024-07-15 06:44] LABS: BUN Creatinine Ratio 16.3 (6-22); Blood Urea Nitrogen 13 mg/dL (9-20); Calcium 7.7 mg/dL (8.4-10.2); Carbon Dioxide 22 mmol/L (22-32); Chloride 104 mmol/L (98-107); Estimated Glomerular Filt Rate > 60 mL/min (>60); Glucose 94 mg/dL (80-110); HEMOLYSIS < 15 (0-50); Magnesium 1.9 mg/dL (1.6-2.3); Potassium 3.5 mmol/L (3.4-5.1); Sodium 131 mmol/L (137-145)
[2024-07-15 06:57] LABS: Vancomycin Trough 8.8 ug/mL (10-20)
[2024-07-15] MEDS: VANCOMYCIN 1,000 MG/200 ML PIGGYBACK 200 MG IV (06:57)
[2024-07-15] MEDS: VANCOMYCIN TROUGH 1 REQUEST MISC (06:57)
[2024-07-15] MEDS: HYDROCODONE/ACET 5/325 TABLET 1 TAB PO ×2 (08:26→13:27)
--- NOTE | 2024-07-15 10:31 | CM.DPC ---
DCP Cont. Reviewed EMR and team rounds for status updates. The company that places the home monitoring ankle bracelets came in and replaced the ankle bracelet on pt's R-ankle this time. He initially was refusing, however staff reassured him that they would not place it on as tight. [facility] RN also checked and said there was plenty of room on the ankle after placement. Pt did have elevated WBC and a fever last evening, so it not yet stable for d/c. Per [place] [employer], he is allowed to d/c from the hospital with friends or family transporting, as long as the ankle bracelet was on and secured. Will continue to monitor for further d/c needs.
[2024-07-15] MEDS: POTASSIUM CHLORIDE 20 MEQ TAB 40 MEQ PO (10:48)
--- NOTE | 2024-07-15 12:34 | DI.MRI.S_ITS ---
PROCEDURE: MR FOOT LT WO/W CON INDICATIONS: non-responding cellulitis, swelling, abscess vs osteo TECHNIQUE: Multiphasic, multisequence MRI of the forefoot was performed, before and after intravenous contrast administration. COMPARISON: [facility], CR, XR FOOT LT MIN 3V, 07/13/2024, 17:09. FINDINGS: Image quality: Excellent. Bones and joints: No acute trabecular bone injury or fracture. No abnormal osseous signal erosion is seen to suggest osteomyelitis. No abnormal intraosseous enhancement. Scattered degenerative changes are seen throughout the forefoot, [id number] in severity. Soft tissues: Nonspecific subcutaneous edema and enhancement are seen throughout the midfoot and forefoot. No definite focal skin ulceration is seen. No drainable fluid collection. Visualized ligaments and tendons are intact. Lisfranc ligament is intact. Mild edema within the foot musculature may be secondary to myositis or mild early denervation changes. No enhancing soft tissue mass. 4 mm ganglion cyst is seen dorsal to the fourth metatarsal base. IMPRESSION: 1. Diffuse subcutaneous edema and enhancement throughout the midfoot and forefoot suspicious for cellulitis. No drainable abscess is seen. No MR evidence of osteomyelitis. 2. Mild edema in the plantar foot musculature may be secondary to mild myositis versus early denervation changes. Approved by: Juan Carlos South M.D. on 07/15/2024 at 18:56
--- NOTE | 2024-07-15 12:35 | DI.MRI.S_ITS ---
PROCEDURE: MR ANKLE LT WO/W CON INDICATIONS: non-healing cellulitis, r/o osteo, abscess TECHNIQUE: Noncontrast sagittal T1 spin echo and T2 fast spin echo with fat saturation, axial proton density fast spin echo and T2 fast spin echo with fat saturation, axial T1 spin echo with fat saturation, coronal T1 spin echo and T2 fast spin echo with fat saturation through the ankle/hindfoot. Post-contrast axial, coronal, and sagittal T1 spin echo with fat saturation through the ankle/hindfoot. COMPARISON: [facility], CR, XR ANKLE LT MIN 3V, 07/13/2024, 17:09. FINDINGS: Image quality: Excellent. Bones and soft tissues: No acute trabecular bone injury or fracture. No osseous erosions. No abnormal osseous signal or enhancement is seen to suggest osteomyelitis. No significant joint effusions. Mild degenerative spurring of the dorsal talonavicular joint. No hindfoot coalition. No osteochondral lesion in the talar dome. Diffuse subcutaneous edema is seen throughout the lower leg and ankle. No focal skin ulceration is seen. No drainable fluid collection. No definite soft tissue gas, although MRI is relatively insensitive for the presence of gas. No solid enhancing soft tissue mass. Medial structures: The deltoid ligament and the spring ligament complex are intact. Mild posterior tibialis tenosynovitis. The flexor digitorum longus and flexor hallucis longus tendons are intact. The posterior tibial neurovascular bundle appears normal within the tarsal tunnel, without extrinsic mass effect. Lateral structures: Remote prior low-grade sprain of the anterior talofibular ligament and calcaneofibular ligament. The posterior talofibular ligament is intact. The anterior and posterior tibiofibular ligaments are intact. The peroneus longus and brevis tendons demonstrate normal location and morphology. 17 mm ganglion cyst arises from the lateral sinus tarsi. Anterior structures: The tibialis anterior, extensor hallucis longus, and extensor digitorum longus tendons appear intact. Posterior and plantar structures: Moderate Achilles tendinosis. The proximal plantar fascia is intact. No disproportionate abductor digiti minimi muscle atrophy to suggest Garza neuropathy. IMPRESSION: 1. Nonspecific subcutaneous edema throughout the lower leg and ankle. No drainable abscess. No MR evidence of osteomyelitis. 2. Mild posterior tibialis tenosynovitis. 3. Remote prior low-grade sprains of the anterior talofibular ligament and the calcaneofibular ligament. 4. Moderate Achilles tendinosis. Approved by: Juan Carlos South M.D. on 07/15/2024 at 19:35
--- NOTE | 2024-07-15 14:54 | PM.PN.1 ---
Subjective Subjective Interval history: 68 years old male with history of methamphetamine abuse presented to the ER after he developed increased redness, skin break, swelling and pain in his left ankle. The patient is under house arrest and had a leg band on his left ankle placed around 10 days ago. In the last several days he started developing pain, swelling, redness and decreased blood supply in his left ankle. He also reports some generalized weakness and malaise. In the ER he was found to have left ankle cellulitis and was started on ceftriaxone and vancomycin. 68 year old male admitted with left leg cellulitis, continued pain and swelling today, difficult to ambulate. His WBC is up a bit, and still with marked tenderness on exam. Ankle monitor was placed, will obtain MRI of his left foot and ankle later to evaluate for possible abscess or osteomyelitis. Exam Vital Signs (past 8 hours): - 07/15/24 07:00 07/15/24 08:00 07/15/24 12:00 Temperature 97.6 F 97.8 F Pulse Rate 64 83 Respiratory Rate 16 16 Blood Pressure 116/56 L 129/84 Pulse Oximetry 96 100 Oxygen Delivery Method Room Air Oxygen Delivery Method Room Air Oxygen Flow Rate 0 Narrative Exam Narrative: Gen: No acute distress, mild discomfort CV: RRR Pulm: CTA b/l Abd: S NT ND Ext: trace to 1+ edema LLE. some superficial healing scars, no drainage, minimal erythema. + warmth and tenderness, more prominent over his left foot than compared to yesterday. Objective Labs 07/15/24 06:17 07/15/24 06:17 Labs: Laboratory Results - last 24 hr 07/15/24 06:17 WBC 14.4 H RBC 3.88 L Hgb 11.5 L Hct 34.0 L MCV 87.7 MCH 29.6 MCHC 33.8 RDW 15.5 H Plt Count 240 Neut % (Auto) 85.1 H Lymph % (Auto) 6.5 L [place] % (Auto) 5.7 Eos % (Auto) 2.3 Baso % (Auto) 0.4 Neut # (Auto) 34515 H Lymph # (Auto) 900 L [place] # (Auto) 800 Eos # (Auto) 300 Baso # (Auto) 100 Sodium 131 L Potassium 3.5 Chloride 104 Carbon Dioxide 22 BUN 13 Creatinine 0.80 Estimated GFR > 60 BUN/Creatinine Ratio 16.3 Glucose 94 Calcium 7.7 L Magnesium 1.9 Vancomycin Trough 8.8 L PFSH Medical History BPH (benign prostatic hyperplasia) Varicose veins of both lower extremities Sciatica Surgical History History of prostate surgery H/O neck surgery Social History household members: none Smoking Status: Current some day smoker alcohol intake: current Assessment & Plan Assessment & Plan narrative: Sepsis Left ankle cellulitis -Antibiotics of Vancomycin, ceftriaxone, -Blood cultures times 2, wound care. -Elevate the affected area/limb -IV fluids -Pain medications when necessary, -DVT study negative for DVT -will obtain MRI today given worsening leukocytosis, worsening pain. No necrosis is evident on exam. Code: Full Dispo: LIkely home, timing likely in 2-3 days depending on MRI results. Time-Based Coding :: [TOTAL MINUTES] spent with patient and on the chart (including review of chart, obtaining history, exam, reviewing outside data, placing orders, documenting exam and treatment plan, and counseling patient) on [DATE]. Quality VTE Deep Vein Thrombosis/Pulmonary Embolism Present on Admission: No
--- NOTE | 2024-07-15 15:10 | PT.IPTN ---
Current Diagnoses Sepsis, unspecified organism (07/15/24) Physical Therapy Treatment Note M2 PT-IP Current Condition Start: 07/14/24 11:37 Freq: NEEDED Status: Active Protocol: Document 07/14/24 10:55 AB (Rec: 07/14/24 12:31 AB [id number]) Physical Therapy Current Condition Current Condition Evaluation Date 07/14/24 Treatment Diagnosis LLE cellulitis; difficulties in walking Onset Date 07/13/24 M3 PT-IP Subjective Start: 07/14/24 11:37 Freq: NEEDED Status: Active Protocol: Document 07/15/24 15:10 AB (Rec: 07/15/24 16:21 AB [id number]) Subjective Physical Therapy Visit Type Type Treatment Note Visit Start Time 15:10 Visit Stop Time 15:20 Number of DATE NIGHT CAREGIVER Visits 0 Physical Therapy Visit Comments Patient Comments agreeable to do PT Therapy Pain Assessment Pain When Pain Assessed At Rest Pain Present Pain Present Pain Reported Location Left Ankle Scale Used pain scale not stated Pain Management Techniques Distraction,Modification of Treatment,Re-positioning, Timing of Activity with Medications M4 PT-IP Mobility and Gait Start: 07/14/24 11:37 Freq: NEEDED Status: Active Protocol: Document 07/15/24 15:10 AB (Rec: 07/15/24 16:21 AB [id number]) PT-Bed Mobility Assessment Supine to Sit Supine to Sit Standby Assistance PT-Transfer Assessment Sit to and From Stand Sit to and from Stand Contact Guard Assistance,1 Person Assistance,Use of Upper Extremities Equipment Transfer Assistive Device Gait Belt,Front Wheeled Walker Orthotic/Prosthetic Devices or Brace: No Transfers Transfer Destination Chair Transfer Technique ambulated Transfer Ability Level of Assist Contact Guard Assistance,1 Person Assistance,Use of Upper Extremities Comments Mobility Comments pt supine in bed and agreeable to do PT. completed supine to sit SBA. sit to stand CGA and able to ambulate in room ~ 25 ft using FWW CGA to min A. pt presents with unsteady antalgic gait. pt refused further walking but agreed to sit up on the chair. positioned pt on the chair. call light and table placed within reach. Gait Assessment Gait Gait Assistance Required: Contact Guard Assist,Minimum Assistance Distance (Feet) 25 Able to Maintain Weight Bearing Status Yes During Gait Assistive Devices Assistive Device Gait Belt,Front Wheeled Walker Orthotic/Prosthetic Devices or Brace: No Gait Deviations General Gait Pattern Antalgic,Decreased Stride Length,Decreased Feet Clearance,Step-to Gait Factors Limiting Gait Function Factors Limiting Gait Function Decreased Activity Tolerance, Decreased Strength,Limited Range of Motion,Pain,Poor Balance,Poor Safety Awareness M5 PT-IP Objective Assessments Start: 07/14/24 11:37 Freq: NEEDED Status: Active Protocol: Document 07/14/24 10:55 AB (Rec: 07/14/24 12:31 AB [id number]) Orientation Orientation/Cognition Level of Alertness Alert Orientation Name,Place,Situation Language Function Ability Hard of Hearing Safety Awareness Decreased Safety Awareness Memory Description Short Term Impaired Gross Range of Motion Lower Extremity ROM Assessment Within Functional Limits Strength Lower Extremity Strength Assessment Within Functional Limits Muscle Tone Muscle Tone WNL Yes M6 PT-IP Treatment Start: 07/14/24 11:37 Freq: NEEDED Status: Active Protocol: Document 07/15/24 15:10 AB (Rec: 07/15/24 16:21 AB [id number]) Physical Therapy Treatment Education Education Provided Safety M7 PT-IP Assessment and Plan Start: 07/14/24 11:37 Freq: NEEDED Status: Active Protocol: Document 07/15/24 15:10 AB (Rec: 07/15/24 16:21 AB [id number]) PT Summary Assessment and Plan Potential Rehabilitation Potential Fair Summary Impairments Pain,ROM,Strength,Balance, Coordination,Sensation, Cognition,Bed Mobility, Transfers,Gait,Activity Tolerance Progress Towards Goals Slow Progress due to Pain,Slow Progress due to Medical Issues,Slow Progress due to Activity Tolerance Assessment Summary pt improving slowly with mobility and able to ambulate using FWW ~ 25 ft CGA to min A . pt continues to c/o increase LE pain affecting mobility. pt plans to go home and has his friends to assist him if needed. will continue to assess progress. Goals Bed Mobility Goal Independent Transfer Goal Independent,Front Wheeled Walker Gait Goal Independent,Front Wheel Walker Gait Distance 100 Other Goals up/down 3 steps without rails SBA Days to Meet Goals 10 Frequency of Treatment Frequency Of Treatment Once a Day Treatment Plan Physical Therapy Treatment Plan Bed Mobility Training,Transfer Training,Gait Training, Therapeutic Exercise,Balance Retraining,Discharge Planning, Hot or Cold Pack,Neuromuscular Re-ed,Coordination Retraining ,Manual Therapy Recommendations To Nursing Amount of Assist Needed 1 Person Assist Discharge Recommendations PT Discharge Recommendations Home with Assistance,Home Health Transportation Needs at Discharge Private Vehicle
--- NOTE | 2024-07-15 15:16 | PC.NURSE ---
Day shift: Ankle monitor removed (at approx 1515) with flat head screwdriver per CM instructions (In[employer]). Device popped off without trouble. Placed in plastic bag and then placed in ACU safe.
[2024-07-15] MEDS: VANCOMYCIN 1,500 MG/300 ML PIGGYBACK 200 MG IV (19:28)
[2024-07-15] MEDS: SENNOSIDES 8.6 MG TABLET 17.2 MG PO (20:59)
[2024-07-15] MEDS: cefTRIAXone 2,000 MG in SODIUM CHLORIDE 0.9% 100 ML 200 MG IV (21:24)
[2024-07-15] MEDS: ACETAMINOPHEN 325 MG TABLET 650 MG PO (21:48)
[2024-07-16] VITALS (8 sets, daily range): BP systolic 86–133; BP diastolic 47–91; PULSE 68–94; RESP 17–18; TEMP 36.3–38.3; O2SAT 97–99
[2024-07-16 06:18] LABS: Add Manual Diff / Slide Review NO; Basophils Absolute Auto 0 /uL (0-100); Basophils Percent Auto 0.2 % (0-2); Eosinophils Absolute Auto 500 /uL (0-450); Eosinophils Percent Auto 3.7 % (2-4); Hematocrit 34.2 % (41-53); Hemoglobin 11.6 g/dL (13.5-17.5); Lymphocytes Absolute Auto 800 /uL (1100-4500); Lymphocytes Percent Auto 5.8 % (25-40); Mean Corpuscular HGB Conc 33.9 % (30-36); Mean Corpuscular Hemoglobin 29.7 PG (26-34); Mean Corpuscular Volume 87.9 fL (80-100); Monocytes Absolute Auto 800 /uL (0-900); Monocytes Percent Auto 5.7 % (3-14); Neutrophils Absolute Auto 11300 /uL (1500-7000); Neutrophils Percent Auto 84.6 % (50-75); Platelet Count 270 X10^3/uL (150-400); Red Cell Distribution Width 15.1 % (11.6-14.8); White Blood Cell Count 13.3 X10^3/uL (4.5-11.0)
[2024-07-16] MEDS: VANCOMYCIN 1,500 MG/300 ML PIGGYBACK 200 MG IV ×2 (06:28→18:09)
[2024-07-16] MEDS: HYDROCODONE/ACET 5/325 TABLET 1 TAB PO ×3 (06:34→20:52)
[2024-07-16 06:48] LABS: BUN Creatinine Ratio 15.7 (6-22); Blood Urea Nitrogen 13 mg/dL (9-20); Calcium 8.2 mg/dL (8.4-10.2); Carbon Dioxide 25 mmol/L (22-32); Chloride 104 mmol/L (98-107); Estimated Glomerular Filt Rate > 60 mL/min (>60); Glucose 100 mg/dL (80-110); HEMOLYSIS < 15 (0-50); Magnesium 2.1 mg/dL (1.6-2.3); Potassium 3.8 mmol/L (3.4-5.1); Sodium 132 mmol/L (137-145)
[2024-07-16] MEDS: NICOTINE 14 PATCH 14 MG TOP (08:48)
[2024-07-16] MEDS: ENOXAPARIN 40 MG/0.4 ML SYRINGE SUBCUT (08:51)
--- NOTE | 2024-07-16 10:35 | PC.NURSE ---
Day sbhift: Ankle monitor is back in place on rt leg/ankle (at 1035). It is not tight and able to slip 2 to 3 fingers under it's belt. Pt tolerated well with no complaints. Will continue to monitor.
--- NOTE | 2024-07-16 12:45 | PT.IPTN ---
Current Diagnoses Sepsis, unspecified organism (07/15/24) Physical Therapy Treatment Note M2 PT-IP Current Condition Start: 07/14/24 11:37 Freq: NEEDED Status: Active Protocol: Document 07/14/24 10:55 AB (Rec: 07/14/24 12:31 AB [id number]) Physical Therapy Current Condition Current Condition Evaluation Date 07/14/24 Treatment Diagnosis LLE cellulitis; difficulties in walking Onset Date 07/13/24 M3 PT-IP Subjective Start: 07/14/24 11:37 Freq: NEEDED Status: Active Protocol: Document 07/16/24 13:01 TS (Rec: 07/16/24 13:16 TS [id number]) Subjective Physical Therapy Visit Type Type Treatment Note Visit Start Time 12:45 Visit Stop Time 13:00 Number of SENIOR SECURITY ARCHITECT Visits 1 Physical Therapy Visit Comments Patient Comments Pt found resting in bed, would like to use restroom. Therapy Pain Assessment Pain When Pain Assessed At Rest Pain Present Pain Present Pain Reported M4 PT-IP Mobility and Gait Start: 07/14/24 11:37 Freq: NEEDED Status: Active Protocol: Document 07/16/24 13:01 TS (Rec: 07/16/24 13:16 TS [id number]) PT-Bed Mobility Assessment Supine to Sit Supine to Sit Independent Sit to Supine Sit to Supine Independent Scooting Scooting to Edge of Bed Independent PT-Transfer Assessment Sit to and From Stand Sit to and from Stand Contact Guard Assistance,1 Person Assistance,Use of Upper Extremities Equipment Transfer Assistive Device Gait Belt,Front Wheeled Walker Orthotic/Prosthetic Devices or Brace: No Comments Mobility Comments Supine to sit Ind with HOB flat. Pt sat EOB and c/o increasing pain in RLE. STS with FWW CGA. Pt ambulates with a flexed posture and unsteady antalgic gait. Pt performs own pericare. STS with FWW from toilet SBA. He ambulates back to bed CGA. Sit to supine into bed Ind. Pt was left in the bed, all needs met. Gait Assessment Gait Gait Assistance Required: Contact Guard Assist,Minimum Assistance Distance (Feet) 25 Able to Maintain Weight Bearing Status Yes During Gait Assistive Devices Assistive Device Gait Belt,Front Wheeled Walker Gait Deviations General Gait Pattern Antalgic,Decreased Stride Length,Decreased Feet Clearance,Step-to Gait Factors Limiting Gait Function Factors Limiting Gait Function Decreased Activity Tolerance, Decreased Strength,Limited Range of Motion,Pain,Poor Balance,Poor Safety Awareness Stair Climbing Assessment Evaluation Level of Assist On Stairs Contact Guard Assistance Devices Stair Climbing Assistive Devices Right Railing Technique/Endurance Stair Climbing Direction Ascend and Descend Stair Climbing Technique Step to Step Number of Steps Climbed 3 Comments Stair Climbing Comments Pt performs steps x3 with single rail CGA. PT-Balance Assessment Sitting Balance and Reactions Static Sitting Balance Ability Normal Dynamic Sitting Balance Ability Good Standing Balance and Reactions Static Standing Balance Ability Fair Dynamic Standing Balance Ability Fair Device Used FWW M5 PT-IP Objective Assessments Start: 07/14/24 11:37 Freq: NEEDED Status: Active Protocol: Document 07/14/24 10:55 AB (Rec: 07/14/24 12:31 AB [id number]) Orientation Orientation/Cognition Level of Alertness Alert Orientation Name,Place,Situation Language Function Ability Hard of Hearing Safety Awareness Decreased Safety Awareness Memory Description Short Term Impaired Gross Range of Motion Lower Extremity ROM Assessment Within Functional Limits Strength Lower Extremity Strength Assessment Within Functional Limits Muscle Tone Muscle Tone WNL Yes M6 PT-IP Treatment Start: 07/14/24 11:37 Freq: NEEDED Status: Active Protocol: Document 07/16/24 13:01 TS (Rec: 07/16/24 13:16 TS [id number]) Physical Therapy Treatment Education Education Provided Safety M7 PT-IP Assessment and Plan Start: 07/14/24 11:37 Freq: NEEDED Status: Active Protocol: Document 07/16/24 13:01 TS (Rec: 07/16/24 13:16 TS [id number]) PT Summary Assessment and Plan Potential Rehabilitation Potential Fair Summary Impairments Pain,ROM,Strength,Balance, Coordination,Sensation, Cognition,Bed Mobility, Transfers,Gait,Activity Tolerance Progress Towards Goals Slow Progress due to Pain,Slow Progress due to Medical Issues,Slow Progress due to Activity Tolerance Assessment Summary Lenin continues to have high pain in his RLE limiting him in progressing his mobility. He has an unsteady gait and lacks good safety awareness. He performed seps x3 today with CGA and use of a single rail. PT continues to recommend home with assist. Goals Bed Mobility Goal Independent Transfer Goal Independent,Front Wheeled Walker Gait Goal Independent,Front Wheel Walker Gait Distance 100 Other Goals up/down 3 steps without rails SBA Days to Meet Goals 10 Frequency of Treatment Frequency Of Treatment Once a Day Treatment Plan Physical Therapy Treatment Plan Bed Mobility Training,Transfer Training,Gait Training, Therapeutic Exercise,Balance Retraining,Discharge Planning, Hot or Cold Pack,Neuromuscular Re-ed,Coordination Retraining ,Manual Therapy Recommendations To Nursing Amount of Assist Needed 1 Person Assist Discharge Recommendations PT Discharge Recommendations Home with Assistance,Home Health Transportation Needs at Discharge Private Vehicle
--- NOTE | 2024-07-16 12:52 | P.PN_ITS ---
Subjective Subjective Interval history: 68 year old male admitted with left leg cellulitis, continued pain and swelling today though it is finally starting to improve today. MRI negative for abscess or osteo yesterday. His WBC is down today, and had improved tenderness on exam. Ankle monitor now on R ankle. Exam Vital Signs (past 8 hours): - 07/16/24 07:00 07/16/24 11:00 Temperature 98.2 F 98.4 F Pulse Rate 85 86 Respiratory Rate 18 17 Blood Pressure 106/67 133/91 H Pulse Oximetry 97 97 Oxygen Delivery Method Room Air Oxygen Flow Rate 0 Narrative Exam Narrative: Gen: No acute distress, mild discomfort CV: RRR Pulm: CTA b/l Abd: S NT ND Ext: trace to 1+ edema LLE. more prominent pedal edema. some superficial healing scars, no drainage, minimal erythema. + warmth and tenderness, improved over his left foot than compared to yesterday. Objective Labs 07/16/24 06:02 07/16/24 06:02 Labs: Laboratory Results - last 24 hr 07/16/24 06:02 WBC 13.3 H RBC 3.90 L Hgb 11.6 L Hct 34.2 L MCV 87.9 MCH 29.7 MCHC 33.9 RDW 15.1 H Plt Count 270 Neut % (Auto) 84.6 H Lymph % (Auto) 5.8 L [place] % (Auto) 5.7 Eos % (Auto) 3.7 Baso % (Auto) 0.2 Neut # (Auto) 80963 H Lymph # (Auto) 800 L [place] # (Auto) 800 Eos # (Auto) 500 H Baso # (Auto) 0 Sodium 132 L Potassium 3.8 Chloride 104 Carbon Dioxide 25 BUN 13 Creatinine 0.83 Estimated GFR > 60 BUN/Creatinine Ratio 15.7 Glucose 100 Calcium 8.2 L Magnesium 2.1 PFSH Medical History BPH (benign prostatic hyperplasia) Varicose veins of both lower extremities Sciatica Surgical History History of prostate surgery H/O neck surgery Social History household members: none Smoking Status: Current some day smoker alcohol intake: current Assessment & Plan Assessment & Plan narrative: Sepsis ruled out Left ankle cellulitis -Antibiotics of Vancomycin, ceftriaxone will continue. -Blood cultures times 2 NGTD, continue local wound care. -Elevate the affected area/limb -IV fluids can be stopped. -Pain medications when necessary, will add gabapentin with some burning pain reported today and hopefully reduce opiate use. -DVT study negative for DVT -MRI yesterday showed diffuse inflammation, no abscess or osteomyelitis. Code: Full Dispo: LIkely home, timing likely in 2-3 days Time-Based Coding :: [TOTAL MINUTES] spent with patient and on the chart (including review of chart, obtaining history, exam, reviewing outside data, placing orders, documenting exam and treatment plan, and counseling patient) on [DATE]. Quality VTE Deep Vein Thrombosis/Pulmonary Embolism Present on Admission: No
[2024-07-16] MEDS: GABAPENTIN 300 MG CAPSULE PO ×2 (14:43→20:30)
--- NOTE | 2024-07-16 16:37 | DI.RAD.S_ITS ---
PROCEDURE: XR CHEST 1V INDICATIONS: fever TECHNIQUE: One view of the chest was acquired. COMPARISON: [facility], CR, XR CHEST 1V, 07/13/2024, 17:09. FINDINGS: Surgical changes and devices: None. Lungs and pleura: Lungs are clear. No pleural effusions or pneumothorax. Mediastinum: Mediastinal contours appear normal. Heart size is normal. Bones and chest wall: No suspicious bony lesions. Overlying soft tissues appear unremarkable. IMPRESSION: No acute pulmonary process. Dictated by: Valerie Lawrence M.D. on 07/16/2024 at 17:24 Approved by: Valerie Lawrence M.D. on 07/16/2024 at 17:24
[2024-07-16] MEDS: ACETAMINOPHEN 325 MG TABLET 650 MG PO (16:41)
[2024-07-16] MEDS: HYDROMORPHONE 1 MG INJ IV ×2 (18:12→22:25)
[2024-07-16] MEDS: CEFEPIME 2 GM in SODIUM CHLORIDE 0.9% 100 ML IV (20:28)
[2024-07-16] MEDS: SENNOSIDES 8.6 MG TABLET 17.2 MG PO (20:30)
[2024-07-16 20:46] LABS: Bilirubin Urine UA NEGATIVE (NEGATIVE); Color Urine UA YELLOW; Glucose Urine UA NEGATIVE (Negative); Ketones Urine UA NEGATIVE (NEGATIVE); Leukocyte Esterase Urine UA 2+ (NEGATIVE); Nitrite Urine UA NEGATIVE (Negative); Occult Blood Urine UA TRACE-INTACT (Negative); Protein Urine UA TRACE (Negative); Urobilinogen Urine UA 0.2 E.U./dL (0.2); pH Urine UA 6.5 (4.5-8.0)
[2024-07-16 20:48] LABS: Appearance Urine UA SL CLOUDY
[2024-07-16 20:49] LABS: Urine Volume 10mL (spun)
[2024-07-16 20:52] LABS: Amorphous Sediment Urine 1+; Bacteria Urine Moderate (10-30); RBC Urine 0-1/HPF (0-5/HPF); Squamous Epithelial Cell Urine None Seen (0-5/HPF); WBC Urine 1-5/HPF (0-5/HPF)
[2024-07-16 20:53] LABS: Culture Indicated Urine Specimen Cultured
[2024-07-17 00:27] VITALS: BP 102/71; PULSE 77; RESP 18; TEMP 36.7; O2SAT 98
[2024-07-17 04:00] VITALS: TEMP 36.6
[2024-07-17 06:47] LABS: Add Manual Diff / Slide Review NO; Basophils Absolute Auto 0 /uL (0-100); Basophils Percent Auto 0.3 % (0-2); Eosinophils Absolute Auto 500 /uL (0-450); Hematocrit 33.5 % (41-53); Hemoglobin 11.4 g/dL (13.5-17.5); Lymphocytes Absolute Auto 1200 /uL (1100-4500); Lymphocytes Percent Auto 12.5 % (25-40); Mean Corpuscular HGB Conc 33.9 % (30-36); Mean Corpuscular Hemoglobin 29.6 PG (26-34); Mean Corpuscular Volume 87.1 fL (80-100); Monocytes Absolute Auto 700 /uL (0-900); Monocytes Percent Auto 7.1 % (3-14); Neutrophils Absolute Auto 7500 /uL (1500-7000); Neutrophils Percent Auto 75.1 % (50-75); Platelet Count 331 X10^3/uL (150-400); Red Blood Cell Count 3.85 X10^6/uL (4.5-5.9); Red Cell Distribution Width 15.3 % (11.6-14.8)
[2024-07-17] MEDS: VANCOMYCIN 1,500 MG/300 ML PIGGYBACK 200 MG IV ×2 (06:50→18:48)
[2024-07-17] MEDS: HYDROMORPHONE 1 MG INJ IV ×3 (06:56→21:19)
[2024-07-17 07:01] LABS: BUN Creatinine Ratio 17.9 (6-22); Blood Urea Nitrogen 15 mg/dL (9-20); Carbon Dioxide 23 mmol/L (22-32); Chloride 107 mmol/L (98-107); Estimated Glomerular Filt Rate > 60 mL/min (>60); Glucose 104 mg/dL (80-110); HEMOLYSIS < 15 (0-50); Potassium 3.6 mmol/L (3.4-5.1); Sodium 135 mmol/L (137-145)
--- NOTE | 2024-07-17 07:46 | P.PN_ITS ---
Subjective Subjective Interval history: Summary: 68 year old male admitted with left leg cellulitis, continued pain and swelling today though it is finally starting to improve today. MRI negative for abscess or osteo yesterday. His WBC is down today, and had improved tenderness on exam. Ankle monitor now on R ankle. S: Fever yesterday, left foot is still swollen. No dyspnea, good appetite. Exam Vital Signs (past 8 hours): - 07/17/24 00:27 07/17/24 04:00 Temperature 98.1 F 97.8 F Pulse Rate 77 Respiratory Rate 18 Blood Pressure 102/71 Pulse Oximetry 98 Oxygen Delivery Method Room Air Oxygen Flow Rate 0 Narrative Exam Narrative: NAD, alert and oriented. Fluent speech. Lungs are clear, normal rate and effort. Heart is regular, no murmur gallop or rub. Abdomen is soft, non distended. Extremities are free of edema. Left foot red and swollen. Objective Labs 07/17/24 06:38 07/17/24 06:38 Labs: Laboratory Results - last 24 hr 07/16/24 07/17/24 20:30 06:38 WBC 10.0 RBC 3.85 L Hgb 11.4 L Hct 33.5 L MCV 87.1 MCH 29.6 MCHC 33.9 RDW 15.3 H Plt Count 331 Neut % (Auto) 75.1 H Lymph % (Auto) 12.5 L [place] % (Auto) 7.1 Eos % (Auto) 5.0 H Baso % (Auto) 0.3 Neut # (Auto) 7500 H Lymph # (Auto) 1200 [place] # (Auto) 700 Eos # (Auto) 500 H Baso # (Auto) 0 Sodium 135 L Potassium 3.6 Chloride 107 Carbon Dioxide 23 BUN 15 Creatinine 0.84 Estimated GFR > 60 BUN/Creatinine Ratio 17.9 Glucose 104 Calcium 8.0 L Magnesium 2.0 Urine Color Yellow Urine Appearance Sl cloudy Urine pH 6.5 Ur Specific [place] 1.010 Urine Protein Trace H Urine Glucose (UA) Negative Urine Ketones Negative Urine Occult Blood Trace-intact Urine Nitrate Negative Urine Bilirubin Negative Urine Urobilinogen 0.2 Ur Leukocyte Esterase 2+ H Urine RBC 0-1/hpf Urine WBC 1-5/hpf Ur Squamous Epith Cells None seen Amorphous Sediment 1+ Urine Bacteria Moderate (10-30) H Ur Culture Indicated? Specimen cultured Vol Urine Centrifuged 10ml (spun) Vancomycin Trough 13.0 PFSH Medical History BPH (benign prostatic hyperplasia) Varicose veins of both lower extremities Sciatica Surgical History History of prostate surgery H/O neck surgery Social History household members: none Smoking Status: Current some day smoker alcohol intake: current Assessment & Plan Assessment & Plan narrative: 1. Left ankle cellulitis, present on admission and active. Nares MRSA screen negative. -Antibiotics of Vancomycin, ceftriaxone will continue. -Blood cultures times 2 NGTD, continue local wound care. -Elevate the affected area/limb -IV fluids can be stopped. -Pain medications when necessary, will add gabapentin with some burning pain reported today and hopefully reduce opiate use. -DVT study negative for DVT -MRI showed diffuse inflammation, no abscess or osteomyelitis. 2. BPH, present on admission and active. Code: Full Dispo: LIkely home, timing likely in 2-3 days Time-Based Coding :: [TOTAL MINUTES] spent with patient and on the chart (including review of chart, obtaining history, exam, reviewing outside data, placing orders, documenting exam and treatment plan, and counseling patient) on [DATE]. Quality VTE Deep Vein Thrombosis/Pulmonary Embolism Present on Admission: No
[2024-07-17 09:02] VITALS: BP 120/82; PULSE 85; RESP 19; TEMP 37.6; O2SAT 97
[2024-07-17] MEDS: ENOXAPARIN 40 MG/0.4 ML SYRINGE SUBCUT (09:24)
[2024-07-17] MEDS: NICOTINE 14 PATCH 14 MG TOP (09:24)
[2024-07-17] MEDS: GABAPENTIN 300 MG CAPSULE PO ×3 (09:24→21:21)
[2024-07-17] MEDS: CEFEPIME 2 GM in SODIUM CHLORIDE 0.9% 100 ML IV ×2 (09:25→22:51)
--- NOTE | 2024-07-17 10:44 | CM.DPC ---
DCP Continued: Reviewed EMR and team rounds for pt?s medical status. [employer] was able to readjust ankle monitor. Per hospitalist, pt should be medically cleared to discharge home on 07/18 if no fever symptoms exhibited. Plan: Anticipating discharge home with family to transport on 07/18 or when medically cleared. CM Team will continue to follow for coordination of discharge plans. KIRK Perez
[2024-07-17 14:49] VITALS: BP 124/84; PULSE 89; RESP 20; TEMP 36.7; O2SAT 98
--- NOTE | 2024-07-17 16:16 | PT.IPTN ---
Current Diagnoses Sepsis, unspecified organism (07/15/24) Physical Therapy Treatment Note M2 PT-IP Current Condition Start: 07/14/24 11:37 Freq: NEEDED Status: Active Protocol: Document 07/14/24 10:55 AB (Rec: 07/14/24 12:31 AB [id number]) Physical Therapy Current Condition Current Condition Evaluation Date 07/14/24 Treatment Diagnosis LLE cellulitis; difficulties in walking Onset Date 07/13/24 M3 PT-IP Subjective Start: 07/14/24 11:37 Freq: NEEDED Status: Active Protocol: Document 07/17/24 16:57 TS (Rec: 07/17/24 17:03 TS [id number]) Subjective Physical Therapy Visit Type Type Treatment Note Visit Start Time 16:16 Visit Stop Time 16:28 Number of REFRIGERATOR TESTER Visits 2 Physical Therapy Visit Comments Patient Comments Pt found resting in bed, would like to get up to use toilet, pt is agreeable to PT. Therapy Pain Assessment Pain When Pain Assessed At Rest Pain Present Pain Present Pain Reported M4 PT-IP Mobility and Gait Start: 07/14/24 11:37 Freq: NEEDED Status: Active Protocol: Document 07/17/24 16:57 TS (Rec: 07/17/24 17:03 TS [id number]) PT-Bed Mobility Assessment Supine to Sit Supine to Sit Independent Sit to Supine Sit to Supine Independent Scooting Scooting to Edge of Bed Independent PT-Transfer Assessment Sit to and From Stand Sit to and from Stand Contact Guard Assistance,1 Person Assistance,Use of Upper Extremities Equipment Transfer Assistive Device Gait Belt,Front Wheeled Walker Orthotic/Prosthetic Devices or Brace: No Comments Mobility Comments Supine to sit Ind from flat bed. STS with FWW CGA, pt c/o pain in stadning. He ambulates to restroom CGA/SBA with FWW and flexed posture. STS from toilet SBA with use of rail and FWW. Pt ambulates back to bed, sit to supine into bed Ind. Pt was left in bed, alarm on, all needs met. Gait Assessment Gait Gait Assistance Required: Standby Assistance,Contact Guard Assist Distance (Feet) 25 Able to Maintain Weight Bearing Status Yes During Gait Assistive Devices Assistive Device Gait Belt,Front Wheeled Walker Orthotic/Prosthetic Devices or Brace: No Gait Deviations General Gait Pattern Antalgic,Decreased Stride Length,Decreased Feet Clearance Factors Limiting Gait Function Factors Limiting Gait Function Decreased Activity Tolerance, Decreased Strength,Limited Range of Motion,Pain,Poor Balance,Poor Safety Awareness PT-Balance Assessment Sitting Balance and Reactions Static Sitting Balance Ability Normal Dynamic Sitting Balance Ability Good Standing Balance and Reactions Static Standing Balance Ability Fair Dynamic Standing Balance Ability Fair Device Used FWW M5 PT-IP Objective Assessments Start: 07/14/24 11:37 Freq: NEEDED Status: Active Protocol: Document 07/14/24 10:55 AB (Rec: 07/14/24 12:31 AB [id number]) Orientation Orientation/Cognition Level of Alertness Alert Orientation Name,Place,Situation Language Function Ability Hard of Hearing Safety Awareness Decreased Safety Awareness Memory Description Short Term Impaired Gross Range of Motion Lower Extremity ROM Assessment Within Functional Limits Strength Lower Extremity Strength Assessment Within Functional Limits Muscle Tone Muscle Tone WNL Yes M6 PT-IP Treatment Start: 07/14/24 11:37 Freq: NEEDED Status: Active Protocol: Document 07/17/24 16:57 TS (Rec: 07/17/24 17:03 TS [id number]) Physical Therapy Treatment Education Education Provided Safety M7 PT-IP Assessment and Plan Start: 07/14/24 11:37 Freq: NEEDED Status: Active Protocol: Document 07/17/24 16:57 TS (Rec: 07/17/24 17:03 TS [id number]) PT Summary Assessment and Plan Potential Rehabilitation Potential Fair Summary Impairments Pain,ROM,Strength,Balance, Coordination,Sensation, Cognition,Bed Mobility, Transfers,Gait,Activity Tolerance Progress Towards Goals Slow Progress due to Pain,Slow Progress due to Medical Issues,Slow Progress due to Activity Tolerance Assessment Summary Lenin continues to have high pain in his RLE limiting him in progressing his mobility. He has improved gait and balance this session with use of FWW. He continues to perform bed mobility Ind. PT continues to recommend home with assist and HHPT. Goals Bed Mobility Goal Independent Transfer Goal Independent,Front Wheeled Walker Gait Goal Independent,Front Wheel Walker Gait Distance 100 Other Goals up/down 3 steps without rails SBA Days to Meet Goals 10 Frequency of Treatment Frequency Of Treatment Once a Day Treatment Plan Physical Therapy Treatment Plan Bed Mobility Training,Transfer Training,Gait Training, Therapeutic Exercise,Balance Retraining,Discharge Planning, Hot or Cold Pack,Neuromuscular Re-ed,Coordination Retraining ,Manual Therapy Recommendations To Nursing Amount of Assist Needed 1 Person Assist Discharge Recommendations PT Discharge Recommendations Home with Assistance,Home Health Transportation Needs at Discharge Private Vehicle
[2024-07-17 20:00] VITALS: BP 135/86; PULSE 84; RESP 18; TEMP 36.5; O2SAT 97
[2024-07-17] MEDS: SENNOSIDES 8.6 MG TABLET 17.2 MG PO (21:00)
--- NOTE | 2024-07-17 22:32 | PC.NURSE ---
Cefipime started late, IV leaking and placed new IV.
[2024-07-18] MEDS: HYDROMORPHONE 1 MG INJ IV (06:13)
[2024-07-18] MEDS: VANCOMYCIN 1,500 MG/300 ML PIGGYBACK 200 MG IV ×2 (06:33→18:55)
--- NOTE | 2024-07-18 07:42 | P.PN_ITS ---
Subjective Subjective Date Patient Seen: 07/18/24 Time Patient Seen: 09:44 Interval history: Summary: 68 years old male with history of methamphetamine abuse presented to the ER after he developed increased redness, skin break, swelling and pain in his left ankle. The patient is under house arrest and had a leg band on his left ankle placed around 10 days ago. In the last several days he started developing pain, swelling, redness and decreased blood supply in his left ankle. He also reports some generalized weakness and malaise. In the ER he was found to have left ankle cellulitis and was started on ceftriaxone and vancomycin. S: The patient has no specific complaints. He notes ongoing left foot swelling and tenderness. Exam Vital Signs (past 8 hours): Oxygen Delivery Method Room Air Oxygen Flow Rate 0 Narrative Exam Narrative: NAD, alert and oriented. Fluent speech. Lungs are clear, normal rate and effort. Heart is regular, no murmur gallop or rub. Abdomen is soft, non distended. Extremities are free of edema. Left foot red and swollen. Objective Labs 07/17/24 06:38 07/17/24 06:38 [facility] Medical History BPH (benign prostatic hyperplasia) Varicose veins of both lower extremities Sciatica Surgical History History of prostate surgery H/O neck surgery Social History household members: none Smoking Status: Current some day smoker alcohol intake: current Assessment & Plan Assessment & Plan narrative: 1. Left ankle cellulitis, present on admission and active. Nares MRSA screen negative. -Antibiotics of Vancomycin, ceftriaxone will continue. -Blood cultures times 2 NGTD, continue local wound care. -Elevate the affected area/limb -Pain medications when necessary, continue gabapentin 300 mg t.i.d. added on 07/18/2024 to help reduce opiate use. -DVT study negative for DVT -MRI showed diffuse inflammation, no abscess or osteomyelitis. 2. BPH, present on admission and active. Code: Full Dispo: LIkely home, timing likely in 1-2 days Team rounds are conducted with nursing, social work, discharge planning and physical therapy. Quality VTE Deep Vein Thrombosis/Pulmonary Embolism Present on Admission: No PROFEE Charge codes Subsequent inpatient/observation care: 11185
[2024-07-18 08:00] VITALS: BP 117/71; PULSE 78; RESP 20; TEMP 37.3; O2SAT 96
[2024-07-18] MEDS: CEFEPIME 2 GM in SODIUM CHLORIDE 0.9% 100 ML IV ×2 (09:56→21:44)
[2024-07-18] MEDS: NICOTINE 14 PATCH 14 MG TOP (09:56)
[2024-07-18] MEDS: GABAPENTIN 300 MG CAPSULE PO ×3 (09:57→19:59)
[2024-07-18] MEDS: ENOXAPARIN 40 MG/0.4 ML SYRINGE SUBCUT (09:57)
[2024-07-18] MEDS: HYDROCODONE/ACET 5/325 TABLET 1 TAB PO ×3 (09:57→19:58)
--- NOTE | 2024-07-18 11:50 | PT.IPTN ---
Current Diagnoses Sepsis, unspecified organism (07/15/24) Physical Therapy Treatment Note M2 PT-IP Current Condition Start: 07/14/24 11:37 Freq: NEEDED Status: Active Protocol: Document 07/14/24 10:55 AB (Rec: 07/14/24 12:31 AB [id number]) Physical Therapy Current Condition Current Condition Evaluation Date 07/14/24 Treatment Diagnosis LLE cellulitis; difficulties in walking Onset Date 07/13/24 M3 PT-IP Subjective Start: 07/14/24 11:37 Freq: NEEDED Status: Active Protocol: Document 07/18/24 12:18 TS (Rec: 07/18/24 12:24 TS [id number]) Subjective Physical Therapy Visit Type Type Treatment Note Visit Start Time 11:50 Visit Stop Time 12:10 Number of DEVOPS Visits 3 Physical Therapy Visit Comments Patient Comments Pt found resting in bed, is agreeable to PT. Therapy Pain Assessment Pain When Pain Assessed At Rest Pain Present Pain Present Pain Reported M4 PT-IP Mobility and Gait Start: 07/14/24 11:37 Freq: NEEDED Status: Active Protocol: Document 07/18/24 12:18 TS (Rec: 07/18/24 12:24 TS [id number]) PT-Bed Mobility Assessment Supine to Sit Supine to Sit Independent Sit to Supine Sit to Supine Independent Scooting Scooting to Edge of Bed Independent PT-Transfer Assessment Sit to and From Stand Sit to and from Stand Contact Guard Assistance,1 Person Assistance,Use of Upper Extremities Equipment Transfer Assistive Device Gait Belt,Front Wheeled Walker Orthotic/Prosthetic Devices or Brace: No Comments Mobility Comments Supine to sit Ind with HOB elevated. STS CGA with FWW. Pt ambulates ~10' in the room before needing to sit in chair . Pt ate lunch in the chair and while DEVOPS was looking for chair alarm pt requested back to bed. STS from chair CGA with FWW. Sit to supine into bed Ind. pt was left in the bed, alarm on, nursing notified. Gait Assessment Gait Gait Assistance Required: Standby Assistance,Contact Guard Assist Distance (Feet) 15 Able to Maintain Weight Bearing Status Yes During Gait Assistive Devices Assistive Device Gait Belt,Front Wheeled Walker Gait Deviations General Gait Pattern Antalgic,Decreased Stride Length,Decreased Feet Clearance Factors Limiting Gait Function Factors Limiting Gait Function Decreased Activity Tolerance, Decreased Strength,Limited Range of Motion,Pain,Poor Balance,Poor Safety Awareness PT-Balance Assessment Sitting Balance and Reactions Static Sitting Balance Ability Normal Dynamic Sitting Balance Ability Good Standing Balance and Reactions Static Standing Balance Ability Fair Dynamic Standing Balance Ability Fair Device Used FWW M5 PT-IP Objective Assessments Start: 07/14/24 11:37 Freq: NEEDED Status: Active Protocol: Document 07/14/24 10:55 AB (Rec: 07/14/24 12:31 AB [id number]) Orientation Orientation/Cognition Level of Alertness Alert Orientation Name,Place,Situation Language Function Ability Hard of Hearing Safety Awareness Decreased Safety Awareness Memory Description Short Term Impaired Gross Range of Motion Lower Extremity ROM Assessment Within Functional Limits Strength Lower Extremity Strength Assessment Within Functional Limits Muscle Tone Muscle Tone WNL Yes M6 PT-IP Treatment Start: 07/14/24 11:37 Freq: NEEDED Status: Active Protocol: Document 07/18/24 12:18 TS (Rec: 07/18/24 12:24 TS [id number]) Physical Therapy Treatment Education Education Provided Safety M7 PT-IP Assessment and Plan Start: 07/14/24 11:37 Freq: NEEDED Status: Active Protocol: Document 07/18/24 12:18 TS (Rec: 07/18/24 12:24 TS [id number]) PT Summary Assessment and Plan Potential Rehabilitation Potential Fair Summary Impairments Pain,ROM,Strength,Balance, Coordination,Sensation, Cognition,Bed Mobility, Transfers,Gait,Activity Tolerance Progress Towards Goals Slow Progress due to Pain,Slow Progress due to Medical Issues,Slow Progress due to Activity Tolerance Assessment Summary Pt continues to be limited by pain with his mobility. He continues to be Ind with all bed mobility. He is unsteady with gait and use of FWW. He lacks good safety awareness with his mobility. He continues to ambulate short distances in the room with pain. PT is recommending home with assist. Goals Bed Mobility Goal Independent Transfer Goal Independent,Front Wheeled Walker Gait Goal Independent,Front Wheel Walker Gait Distance 100 Other Goals up/down 3 steps without rails SBA Days to Meet Goals 10 Frequency of Treatment Frequency Of Treatment Once a Day Treatment Plan Physical Therapy Treatment Plan Bed Mobility Training,Transfer Training,Gait Training, Therapeutic Exercise,Balance Retraining,Discharge Planning, Hot or Cold Pack,Neuromuscular Re-ed,Coordination Retraining ,Manual Therapy Recommendations To Nursing Amount of Assist Needed 1 Person Assist Discharge Recommendations PT Discharge Recommendations Home with Assistance,Home Health Transportation Needs at Discharge Private Vehicle
[2024-07-18 19:30] VITALS: BP 117/72; PULSE 81; RESP 19; TEMP 36.6; O2SAT 98
[2024-07-18] MEDS: SENNOSIDES 8.6 MG TABLET 17.2 MG PO (19:58)
[2024-07-18] MEDS: MELATONIN 3 MG TABLET 9 MG PO (19:58)
[2024-07-19] MEDS: VANCOMYCIN 1,500 MG/300 ML PIGGYBACK 200 MG IV (06:37)
[2024-07-19 07:00] VITALS: BP 130/85; PULSE 85; RESP 15; TEMP 36.4; O2SAT 98
[2024-07-19] MEDS: ENOXAPARIN 40 MG/0.4 ML SYRINGE SUBCUT (08:29)
[2024-07-19] MEDS: GABAPENTIN 300 MG CAPSULE PO (08:29)
[2024-07-19] MEDS: HYDROCODONE/ACET 5/325 TABLET 1 TAB PO (08:29)
[2024-07-19] MEDS: NICOTINE 14 PATCH 14 MG TOP (08:29)
[2024-07-19] MEDS: CEFEPIME 2 GM in SODIUM CHLORIDE 0.9% 100 ML IV (08:29)
[2024-07-19 08:30] LABS: BUN Creatinine Ratio 27.6 (6-22); Blood Urea Nitrogen 21 mg/dL (9-20); Calcium 8.3 mg/dL (8.4-10.2); Carbon Dioxide 21 mmol/L (22-32); Chloride 108 mmol/L (98-107); Estimated Glomerular Filt Rate > 60 mL/min (>60); Glucose 104 mg/dL (80-110); HEMOLYSIS < 15 (0-50); Potassium 4.2 mmol/L (3.4-5.1); Sodium 137 mmol/L (137-145)
--- NOTE | 2024-07-19 09:26 | P.DS_ITS ---
History of Present Illness History of Present Illness Date Patient Seen: 07/19/24 Time Patient Seen: 09:00 Date of Onset of Symptoms: 07/14/24 Chief complaint: swollen ankle Narrative: 68 years old male with history of methamphetamine abuse presented to the ER after he developed increased redness, skin break, swelling and pain in his left ankle. The patient is under house arrest and had a leg band on his left ankle placed around 10 days ago. In the last several days he started developing pain, swelling, redness and decreased blood supply in his left ankle. He also reports some generalized weakness and malaise. In the ER he was found to have left ankle cellulitis and was started on ceftriaxone and vancomycin. Discharge Providers Provider Date of admission: 07/15/24 10:11 Discharge Date: 07/19/24 Primary care physician: Doctor Marlena MD Consults: 07/13/24 20:53 Consult to Occupational Therapy Evaluate & Treat Comment: Physician Instructions: Evaluate and treat Consult to Physical Therapy Evaluate & Treat Comment: Physician Instructions: Evaluate and Treat Discharge provider: Gregorio San MD Summary Hospital Course Discharge Diagnosis: 1. Left ankle cellulitis 2. BPH 3. Substance abuse disorder, positive for methamphetamines on admission Hospital Course: The patient was admitted for left foot and ankle cellulitis due to abrasion at the point of contact of a [place] [facility] ankle bracelet placed by law enforcement and placed on broad-spectrum antibiotics with vancomycin and cefepime. The ankle improved over subsequent days. Pain was controlled with oral opioids, transition to oral gabapentin and Tylenol at the time of discharge. He was feeling significantly better. No other issues arose. Status at Discharge Cognitive/behavioral status at discharge: oriented Functional status at discharge: independent ambulation Overall status at discharge: patient is progressing back to baseline Time Spent with Patient Time spent: Less than 30 minutes Exam Vital Signs (past 8 hours): - 07/19/24 07:00 Temperature 97.5 F L Pulse Rate 85 Respiratory Rate 15 Blood Pressure 130/85 Pulse Oximetry 98 Oxygen Flow Rate 0 Oxygen Delivery Method Room Air Oxygen Flow Rate 0 Narrative Exam Narrative: NAD, alert and oriented. Fluent speech. Lungs are clear, normal rate and effort. Heart is regular, no murmur gallop or rub. Abdomen is soft, non distended. Extremities are free of edema. Left foot red and ankle with resolved erythema and swelling, with persistent mild excoriation. Objective Imaging *: Radiologist's impression: Chest x-ray 07/13/2024: No acute cardiopulmonary abnormality is seen. Left ankle x-ray 07/13/2024: Diffuse subcutaneous edema without other radiographic evidence of osteomyelitis. Left foot x-ray 07/13/2024: Subcutaneous edema without other radiographic evidence of osteomyelitis. Left lower extremity Doppler ultrasound 07/13/2024: No findings of lower extremity deep venous thrombosis. Left foot MRI 07/15/2024: 1. Diffuse subcutaneous edema and enhancement throughout the midfoot and forefoot suspicious for cellulitis. No drainable abscess is seen. No MR evidence of osteomyelitis. 2. Mild edema in the plantar foot musculature may be secondary to mild myositis versus early denervation changes. Left ankle MRI 07/15/2024: 1. Nonspecific subcutaneous edema throughout the lower leg and ankle. No drainable abscess. No MR evidence of osteomyelitis. 2. Mild posterior tibialis tenosynovitis. 3. Remote prior low-grade sprains of the anterior talofibular ligament and the calcaneofibular ligament. 4. Moderate Achilles tendinosis. Chest x-ray 07/16/2024: No acute pulmonary process. Labs 07/17/24 06:38 07/19/24 06:34 Labs: Laboratory Results - last 24 hr 07/19/24 06:34 Sodium 137 Potassium 4.2 Chloride 108 H Carbon Dioxide 21 L BUN 21 H Creatinine 0.76 Estimated GFR > 60 BUN/Creatinine Ratio 27.6 H Glucose 104 Calcium 8.3 L Vancomycin Trough 16.0 PFSH Medical History BPH (benign prostatic hyperplasia) Varicose veins of both lower extremities Sciatica Surgical History History of prostate surgery H/O neck surgery Social History household members: none Smoking Status: Current some day smoker alcohol intake: current Discharge Plan Discharge Plan Patient Disposition: Home Provider Discharge Comment: Followup with PCP/[facility] < 7 days Discharge orders & Medications Prescriptions: New acetaminophen 325 mg Tablet 650 mg PO Q6H PRN (Reason: pain) Qty: 1 0RF gabapentin 300 mg Capsule 300 mg PO TID Qty: 60 0RF amoxicillin-pot clavulanate 875-125 mg tablet 1 tab PO BID Qty: 14 0RF Continued aspirin 81 mg Capsule 81 mg PO PRN PRN (Reason: headache) Follow up/Referrals: Doctor Mendiola MD [Primary Care Provider] - Skin/Wound/Dressing Care Report to your healthcare provider any signs of infection, such as:: chills, fever, night sweats, increased pain, unusual drainage and unusual redness Visit Report/Discharge Packet Stand Alone Forms: Patient Portal/API Discharge Data Primary Care Provider: Doctor Marlena Quality VTE Deep Vein Thrombosis/Pulmonary Embolism Present on Admission: No MIPS - Admit I confirm the patient?s Advance Care Plan is present, Code status is documented, Surrogate decision maker is in patient?s record [If Yes, STOP here]: Yes MIPS - Meds 'Current medications' to include all prescriptions, [id number] products, herbals, cannabis/cannabidiol products, and vitamin/mineral/dietary (nutritional) supplements. I have utilized all available resources to obtain, update, or review the patient?s current medications. [If Yes, STOP here]: Yes MIPS - DC The patient has a history of heart transplant or Left Ventricular Assist Device (LVAD). If yes, STOP here.: No The patient has current or prior documentation of left ventricular ejection fraction (LVEF) less than or equal to 40%, or moderate or severely depressed left ventricular systolic function.: No A. The patient was prescribed or already taking an Angiotensin-Converting Enzyme (DWAYNE) Inhibitor, or Angiotensin Receptor Sheryl (ARB).: No B. The patient was prescribed or already taking a beta-sheryl. [If Yes to Both A & B, STOP here]: No Patient not prescribed/taking DWAYNE or ARB, no reason given.: No Patient not prescribed/taking beta-sheryl, no reason given.: No [facility] PROFEE Charge Codes Discharge inpatient/observation: [id number]
--- NOTE | 2024-07-19 10:30 | CM.DPC ---
DCP Cont. Reviewed EMR and team rounds for status updates. Pt has been medically cleared for home d/c, he has friends that will transport him home. Called the [place] [employer] and informed them of his d/c, per their request. No further DCP needs indicated at this time.
--- NOTE | 2024-07-19 13:10 | PC.NURSE ---
Pt agreeable to discharge. Education provided to pt on fall prevention, follow up, worsening symptoms, new medications, and stroke s/s. Pt wheeled via w/c to private vehicle at approximately 1310 with friend and PCT.
== END 2024-07-19 13:10 | disposition home or self-care (01) | DRG 603 ==
LOC: ED 19:25 → AC 19:32
PROVIDERS: Internal Medicine; Admitting Provider Internal Medicine; Emergency Provider Emergency Medicine; Referring Provider Emergency Medicine; Visit Provider Internal Medicine
DX: L03.116 Cellulitis of left lower limb (principal); N40.0 Benign prostatic hyperplasia without lower urinary tract symptoms; F15.10 Other stimulant abuse, uncomplicated; S90.512A Abrasion, left ankle, initial encounter; X58.XXXA Exposure to other specified factors, initial encounter
CPT/HCPCS: 36415; 71045; 73610; 73630; 73720; 73723; 80048; 80053; 80202; 80305; 81001; 83605; 83735; 84145; 85025; 87040; 87086; 87797; 93005; 93010; 93971; 96361; 96365; 96367; 96375; 97162; 97166; 97530; 99284; 99285; G0378; A9579; J0692; J0696; J1170; J1171; J1650

== ENCOUNTER 2025-01-26 17:32 | Emergency (ER) | payer MEDICAID, SELFPAY ==
[2024-07-14 00:19] VITALS: BMI 21.2
[2025-01-26 17:52] VITALS: BP 134/78; PULSE 115; RESP 20; TEMP 36.9; O2SAT 98; BMI 20.1
[2025-01-26 19:00] VITALS: BP 131/80; PULSE 96; O2SAT 99
[2025-01-26 20:00] VITALS: BP 115/64; PULSE 95; RESP 16; O2SAT 98
[2025-01-26 20:30] VITALS: BP 119/74; PULSE 85; O2SAT 97
[2025-01-26 21:00] VITALS: BP 126/75; PULSE 88; O2SAT 98
--- NOTE | 2025-01-26 21:01 | ED.SKABFB ---
HPI - Skin/Abscess/Foreign Bdy General Chief complaint: Skin/Abscess/Foreign Body Stated complaint: skin condition on legs Time Seen by Provider: 01/26/25 21:01 Source: patient Mode of arrival: Ambulatory Limitations: no limitations History of Present Illness HPI narrative: Patient is a 69 year old male history of methamphetamine abuse chronic lower extremity cellulitis presenting to day with ongoing lower extremity pain. He has previously been admitted with bilateral lower extremity cellulitis. Today he just reports increasing pain. Difficult to tell how long he has had increasing pain for. He was noted to be mildly tachycardic heart rate of 115 but afebrile. Heart rate has actually improved to 95 with out any kind of intervention. Or questions about his drug use he says it is only socially and reports that it is very minimal. Related Data Home Medications Medication Instructions Recorded Confirmed aspirin 81 mg capsule 81 mg PO PRN PRN headache 07/14/24 07/17/24 Previous Rx's Medication Instructions Recorded acetaminophen 325 mg tablet 650 mg (2 x 325 mg) PO Q6H PRN 07/19/24 pain #1 tab amoxicillin 875 mg-potassium 1 tab PO BID #14 tabs 07/19/24 clavulanate 125 mg tablet gabapentin 300 mg capsule 300 mg PO TID #60 caps 07/19/24 amoxicillin 875 mg-potassium 1 tab PO BID #14 tabs 01/26/25 clavulanate 125 mg tablet Allergies Allergy/AdvReac Type Severity Reaction Status Date / Time naproxen [NAPROXEN] Allergy Unknown Verified 07/13/24 17:01 Patient History Medical History BPH (benign prostatic hyperplasia) Varicose veins of both lower extremities Sciatica Surgical History History of prostate surgery H/O neck surgery Social History household members: none Smoking Status: Current some day smoker alcohol intake: current Smoking Status: Current some day smoker tobacco type: cigarettes and vaping alcohol intake frequency: holidays/special occasions only Exam Initial Vital Signs Initial Vital Signs: Vital Signs Temperature 98.4 F 01/26/25 17:52 Pulse Rate 115 H 01/26/25 17:52 Respiratory Rate 20 01/26/25 17:52 Blood Pressure 134/78 01/26/25 17:52 Pulse Oximetry 98 01/26/25 17:52 Oxygen Delivery Method Room Air 01/26/25 17:52 GENERAL: Alert 69-year-old male appears nontoxic HEENT: Head atraumatic,EOMI, pupils reactive, face symmetric, [moist] mucous membranes CARDIOVASCULAR: Regular rate and rhythm without murmurs, rubs or gallops. RESPIRATORY: Breath sounds equal bilaterally, no wheezes rales or rhonchi. ABDOMEN: Soft, nontender. Normoactive bowel sounds all 4 quadrants. No guarding or rebound. EXTREMITIES: Normal range of motion, no clubbing or edema. Neurovascularly intact NEUROLOGICAL: Alert and oriented x4.Normal gait and speech. Cranial nerves II through XII grossly intact. SKIN: Bilateral lower extremity dry flaky skin. He does have some wounds the left medial ankle he actually does have a significant skin breakdown no significant drainage. He has skin breakdown on the left medial ankle but complains of more pain on the right side. Very minimal erythema no gross foul smell. Course Orders Ordered: Discontinued Medications Amoxicillin/Clavulanate Potassium (Amoxicillin/Clav 875/125 Mg) 1 tab PO NOW ONE Stop: 01/26/25 21:28 Last Admin: 01/26/25 21:33 Dose: 1 tab Documented By: DRAGAN Vital Signs Vital signs: Vital Signs - 8 hr 01/26/25 19:00 01/26/25 20:00 01/26/25 20:30 Pulse Rate 96 H 95 H 85 Respiratory Rate 16 Blood Pressure 131/80 115/64 119/74 Pulse Oximetry 99 98 97 Oxygen Delivery Method Room Air 01/26/25 21:00 01/26/25 21:30 01/26/25 21:30 Pulse Rate 88 86 Respiratory Rate Blood Pressure 126/75 130/72 Pulse Oximetry 98 97 Oxygen Delivery Method MDM - Skin/Abscess/Foreign Bdy MDM Narrative Medical decision making narrative: Patient is a 69-year-old male presenting today with bilateral lower extremity cellulitis and skin pain. It actually appears chronic there is some mild erythema there is some skin breakdown mildly tachycardic at 115, initially but this improved without any sort of intervention. He was afebrile. He was previously been admitted for the same. At this time bandages have been placed legs appear chronic. Erythema is slight remaining pretty localized no streaking or circumferential redness. Left medial malleoli appears to have the worst wound. Wound bandages are placed. Strongly recommend he follow up with wound care. Wound referral sent. Discharge Plan Departure Patient Disposition: Home Clinical Impression: Bilateral cellulitis of lower leg Instructions: DI for Cellulitis -- Adult Activity Restrictions/Additional Instructions: *You have been diagnosed with cellulitis *What to do: At this time you must go to wound care to help your wounds legs healed. It is your responsibility to call them *Continue to take medications as directed Augmentin 875 twice a day for 7 days *Follow up with your primary care provider in 2-3 days or call [phone] *Return to ER if you should have increasing pain redness swelling or any new, worsening or concerning symptoms Prescriptions: New amoxicillin-pot clavulanate 875-125 mg tablet 1 tab PO BID Qty: 14 0RF No Action aspirin 81 mg Capsule 81 mg PO PRN PRN (Reason: headache) acetaminophen 325 mg Tablet 650 mg PO Q6H PRN (Reason: pain) Qty: 1 0RF gabapentin 300 mg Capsule 300 mg PO TID Qty: 60 0RF amoxicillin-pot clavulanate 875-125 mg tablet 1 tab PO BID Qty: 14 0RF Referrals: Abdoulaye Isbell MD [Physician] - Miscellaneous,MD Zacarias [Primary Care Provider] - Stand Alone Forms: Patient Portal/API/Survey
[2025-01-26 21:30] VITALS: BP 130/72; PULSE 86; O2SAT 97
[2025-01-26] MEDS: AMOXICILLIN/CLAV 875/125 MG 1 TAB PO (21:33)
== END 2025-01-26 22:10 | disposition home or self-care (01) ==
PROVIDERS: Emergency Provider Emergency Medicine
DX: L03.115 Cellulitis of right lower limb (principal); L03.116 Cellulitis of left lower limb; R00.0 Tachycardia, unspecified
CPT/HCPCS: 99283